=== PATIENT | male | born 1975 | race Caucasian/White ===

== ENCOUNTER 2021-06-22 09:01 | Emergency (ER) | payer OTHER, SELFPAY ==
[2021-06-22] VITALS (7 sets, daily range): BP systolic 158–184; BP diastolic 97–120; PULSE 65–74; RESP 18; TEMP 36.6–36.7; O2SAT 95–98; BMI 31.6
--- NOTE | ~2021-06-22 | XR_ITS ---
EXAMINATION: XR CHEST CLINICAL INFORMATION: Pain COMPARISON: None TECHNIQUE: Portable upright AP view of the chest was obtained. FINDINGS: The lungs are clear. There is no pneumothorax, pleural reaction, airspace consolidation or groundglass opacity. The costophrenic sulci are well-defined. The cardiopericardial silhouette is within upper limits of normal. The vascularity is normal. The hilar and mediastinal contours and visualized bony structures are unremarkable. XR/XR chest 1V IMPRESSION: Unremarkable examination.
--- NOTE | 2021-06-22 09:10 | ED.GENADULT ---
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 and delivery tech Mode of arrival: ambulatory Limitations: no limitations History of Present Illness HPI narrative: ran out of his amlodipine and has been trying to stretch if over 3 months (10mg) sometimes if his pressure if high will try to take 3 pills in a day, has no PCP MD complaint: HTN, headaches shoulder pain Onset (ago): day(s) (1) Location: head, left and upper extremity Radiation: non-radiation Severity: moderate Quality: aching Pain Consistency: constant Relieving factors: none Exacerbating factors: other (HTN) Associated symptoms: headaches and other (L shoulder pain) Treatments prior to arrival: none Related Data Previous Rx's Medication Instructions Recorded amlodipine 10 mg tablet 10 mg PO DAILY #30 tab 06/22/21 metoprolol succinate 25 mg 25 mg PO DAILY #30 tab 06/22/21 tablet,extended release 24 hr (Toprol XL) Allergies Allergy/AdvReac Type Severity Reaction Status Date / Time No Known Allergies Allergy Verified 06/22/21 09:19 Review of Systems Review of Systems: Constitutional : No Weight loss, No Fever, No Chills, No Fatigue, No Malaise ENT/Mouth : No sore throat, No Rhinorrhea Eyes: No Eye Pain, No Swelling, No Redness Cardiovascular : No Chest Pain, No SOB, No Dyspnea on Exertion, No Orthopnea, No Edema, No Palpitations Respiratory : No Cough, No Sputum, No Wheezing Gastrointestinal : No Nausea, No Vomiting, No Diarrhea, No Constipation, No abdominal Pain, No Hematochezia, No Melena Genitourinary : No Dysuria, No Urinary Frequency, No Hematuria, Musculoskeletal : pos joint pain, No Myalgias, No Joint Swelling Skin : No Skin Lesions, No rash Neuro : No Weakness, No Numbness, No Dizziness, pos Headache Psych : No Anxiety/Panic, No Depression Heme/Lymph: No Bruising, No Bleeding,No Lymphadenopathy Endocrine : No Polyuria, No Polydipsia All other systems reviewed and are negative [facility] Past Medical History Attestation statement: The following information was validated with the patient. Medical History HTN (hypertension) Myocardial infarction Surgical History (Updated 06/22/21 @ 09:15 by Jose Brown) H/O heart artery stent Social History Social History (Updated 06/22/21 @ 09:28 by Ember Fernandez DO) Patient Tobacco Use Status: Current everyday Tobacco user Use of substances other than those prescribed or required for medical reasons: No Advance Directives: No Advance Directives Information Provided: No Physical Exam Vital Signs: Vital Signs: Last Vital Signs Temp 98.0 F 06/22/21 12:00 Pulse 73 06/22/21 13:00 Resp 18 06/22/21 13:00 BP 158/97 H 06/22/21 13:00 Pulse Ox 98 06/22/21 13:00 Body Mass Index 31.6 Appearance: Alert. Oriented X3. No acute distress. Eyes: Pupils equal, round and reactive to light. ENT: Pharynx normal. Neck: Normal inspection. Neck supple. no meningeal signs CVS: Normal heart rate and rhythm. Pulses normal. Respiratory: No respiratory distress. Breath sounds normal. Abdomen: Soft and nontender. Skin: Skin warm and dry. Normal skin color. Normal skin turgor. Extremities: No lower extremity edema. No calf ttp Neuro: Oriented X 3. No motor deficit. No sensory deficit. Course Course Course Narrative: good response to labetalol PO amlodipine repeat IV hydralazine ordered HR in 60s asymptomatic now repeat trop flat pateint and partner eager to leave state they have to go - will start on amlodipine and toprol 25mg daily refer to new PCP trying to connect with [facility] Medical Decision Making MDM Narrative Medical decision making narrative: 46 yo male with HTN, [place] s/p PCI with stents comes in with uncontrolled HTN for 3 months trying to make his medications last comes in after 1 day of headaches, L shoulder pain and BP high at home - at this time labs, troponin, EKG, IV labetalol for HTN, dispo per results and findings. Lab Data Result diagrams: 06/22/21 09:32 06/22/21 09:32 Labs: Lab Results 06/22/21 06/22/21 06/22/21 Range/Units 09:32 09:32 09:32 WBC 8.0 (4.8-10.8) X10*3/uL RBC 5.38 (4.60-5.80) X10*6/uL Hgb 16.1 (14.0-18.0) g/dl Hct 48.3 (42-52) % MCV 89.8 (80-98) fL MCH 29.9 (27.0-33.0) pg MCHC 33.3 (31.0-36.0) g/dl RDW 13.3 (11.0-16.0) % Plt Count 160 (160-400) X10*3/uL MPV 11.7 (9.4-12.4) fL Immature Gran % (Auto) 1.1 H (0.0-0.4) % Neut % (Auto) 72.4 (45-73) % Lymph % (Auto) 15.5 L (20-40) % [place] % (Auto) 8.4 (2-11) % Eos % (Auto) 2.0 (0-4) % Baso % (Auto) 0.6 (0-2) % Lymph # (Auto) 1.2 (1.2-4.9) X10*3/uL [place] # (Auto) 0.7 (0.1-1.2) X10*3/uL Eos # (Auto) 0.2 (0.0-0.4) X10*3/uL Baso # (Auto) 0.1 (0.0-0.2) X10*3/uL Abs Immat Gran (auto) 0.09 H (0.00-0.03) X10*3/uL Absolute Neuts (auto) 5.8 (2.0-8.3) X10*3/uL Absolute Nucleated RBC 0.000 (0.0-0.012) X10*3/uL Nucleated RBC % (auto) 0.0 (0.0-0.2) /100WBC Sodium 142 (135-145) mmol/L Potassium 4.1 (3.3-5.1) mmol/L Chloride 105 (96-108) mmol/L Carbon Dioxide 31 H (22-29) mmol/L Anion Gap 10 L (12-20) BUN 16 (9-16) mg/dL Creatinine 1.41 H (0.5-1.4) mg/dL Estim Creat Clear Calc 79.2 Estimated GFR 55 Random Glucose 125 H (60-115) mg/dL Calcium 9.1 (8.4-10.2) mg/dL Magnesium 2.2 (1.6-2.6) mg/dL Total Bilirubin 0.7 (0.0-1.0) mg/dL Direct Bilirubin 0.2 (0.0-0.5) mg/dL AST 22 (5-37) U/L ALT 47 H (0-40) U/L Alkaline Phosphatase 114 (39-117) U/L Troponin I High Sens 5.9 (<3.5-35.0) ng/L Total Protein 6.9 (6.5-8.0) g/dL Albumin 4.4 (3.5-5.0) g/dL COVID-19 ([facility]) (Negative) COVID-19 Clin Com 06/22/21 06/22/21 Range/Units 09:32 11:44 WBC (4.8-10.8) X10*3/uL RBC (4.60-5.80) X10*6/uL Hgb (14.0-18.0) g/dl Hct (42-52) % MCV (80-98) fL MCH (27.0-33.0) pg MCHC (31.0-36.0) g/dl RDW (11.0-16.0) % Plt Count (160-400) X10*3/uL MPV (9.4-12.4) fL Immature Gran % (Auto) (0.0-0.4) % Neut % (Auto) (45-73) % Lymph % (Auto) (20-40) % [place] % (Auto) (2-11) % Eos % (Auto) (0-4) % Baso % (Auto) (0-2) % Lymph # (Auto) (1.2-4.9) X10*3/uL [place] # (Auto) (0.1-1.2) X10*3/uL Eos # (Auto) (0.0-0.4) X10*3/uL Baso # (Auto) (0.0-0.2) X10*3/uL Abs Immat Gran (auto) (0.00-0.03) X10*3/uL Absolute Neuts (auto) (2.0-8.3) X10*3/uL Absolute Nucleated RBC (0.0-0.012) X10*3/uL Nucleated RBC % (auto) (0.0-0.2) /100WBC Sodium (135-145) mmol/L Potassium (3.3-5.1) mmol/L Chloride (96-108) mmol/L Carbon Dioxide (22-29) mmol/L Anion Gap (12-20) BUN (9-16) mg/dL Creatinine (0.5-1.4) mg/dL Estim Creat Clear Calc Estimated GFR Random Glucose (60-115) mg/dL Calcium (8.4-10.2) mg/dL Magnesium (1.6-2.6) mg/dL Total Bilirubin (0.0-1.0) mg/dL Direct Bilirubin (0.0-0.5) mg/dL AST (5-37) U/L ALT (0-40) U/L Alkaline Phosphatase (39-117) U/L Troponin I High Sens 4.9 (<3.5-35.0) ng/L Total Protein (6.5-8.0) g/dL Albumin (3.5-5.0) g/dL COVID-19 (XOCHILT) Negative (Negative) COVID-19 Clin Com See Note ECG Data Attestation: I personally reviewed and interpreted this ECG as follows: Interpretation: Rate: 73 Rhythm: NSR [place]: normal Normal P waves. Normal VIPUL. Normal QRS complex. poor R wave progression ST T wave : mp FREDDIE qTC: normal prior studies: no acute ischemia The study has been interpreted contemporaneously by me. . Discharge Plan Discharge Clinical Impression: Chronic renal insufficiency, HTN (hypertension) Patient Disposition: Home, Self-Care Instructions: Chronic Kidney Disease (ED), Chronic Hypertension (ED) Additional Instructions: return to ED for any worsening symptoms or concerns PCP as soon as possible Prescriptions: New amlodipine 10 mg tablet 10 mg PO DAILY Qty: 30 RF: 3 metoprolol succinate [Toprol XL] 25 mg tablet extended release 24 hr 25 mg PO DAILY Qty: 30 RF: 3 Stand Alone Forms: Work/School Release Print Language: Ecuadorean
--- NOTE | 2021-06-22 09:19 | ECG_ITS ---
Test Reason : HYPERTENSSION Blood Pressure : / mmHG Vent. Rate : 073 BPM Atrial Rate : 073 BPM P-R Int : 174 ms QRS Dur : 092 ms QT Int : 378 ms P-R-T Axes : 048 017 002 degrees QTc Int : 416 ms Normal sinus rhythm Normal ECG No previous ECGs available Referred By: Ember Fernandez Electronically Signed By:CYNDEE WHITNEY
[2021-06-22] MEDS: Labetalol HCL 100 MG/20 ML VIAL 10 MG IVPUSH (09:34)
[2021-06-22 09:37] LABS: MANUAL DIFF FLAG NO
[2021-06-22 09:42] LABS: Basophils Absolute Auto 0.1 X10*3/uL (0.0-0.2); Basophils Percent Auto 0.6 % (0-2); Eosinophils Absolute Auto 0.2 X10*3/uL (0.0-0.4); Hematocrit 48.3 % (42-52); Hemoglobin 16.1 g/dl (14.0-18.0); Imm Gran Abs Auto 0.09 X10*3/uL (0.00-0.03); Imm Gran Pct Auto 1.1 % (0.0-0.4); Lymphocytes Absolute Auto 1.2 X10*3/uL (1.2-4.9); Lymphocytes Percent Auto 15.5 % (20-40); Mean Corpuscular HGB Conc 33.3 g/dl (31.0-36.0); Mean Corpuscular Hemoglobin 29.9 pg (27.0-33.0); Mean Corpuscular Volume 89.8 fL (80-98); Mean Platelet Volume 11.7 fL (9.4-12.4); Monocytes Absolute Auto 0.7 X10*3/uL (0.1-1.2); Monocytes Percent Auto 8.4 % (2-11); Neutrophils Absolute Auto 5.8 X10*3/uL (2.0-8.3); Neutrophils Percent Auto 72.4 % (45-73); Platelet Count 160 X10*3/uL (160-400); Red Blood Count 5.38 X10*6/uL (4.60-5.80); Red Cell Distribution Width 13.3 % (11.0-16.0)
[2021-06-22 09:56] LABS: COVID-19 Test Negative (Negative); IDNOW Serial# 9DD0AD1C
[2021-06-22 10:06] LABS: Alanine Aminotransferase 47 U/L (0-40); Albumin Level 4.4 g/dL (3.5-5.0); Alkaline Phosphatase 114 U/L (39-117); Anion Gap 10 (12-20); Aspartate Amino Transferase 22 U/L (5-37); Bilirubin Direct 0.2 mg/dL (0.0-0.5); Bilirubin Total 0.7 mg/dL (0.0-1.0); Blood Urea Nitrogen 16 mg/dL (9-16); Calcium 9.1 mg/dL (8.4-10.2); Carbon Dioxide 31 mmol/L (22-29); Chloride 105 mmol/L (96-108); Creatinine Clr Calc Pharmacy 79.2; Estimated Glomerular Filt Rate 55; Glucose Random 125 mg/dL (60-115); Magnesium 2.2 mg/dL (1.6-2.6); Potassium 4.1 mmol/L (3.3-5.1); Sodium 142 mmol/L (135-145); Total Protein 6.9 g/dL (6.5-8.0)
[2021-06-22 10:08] LABS: Troponin-I High Sensitivity 5.9 ng/L (<3.5-35.0)
[2021-06-22] MEDS: amLODIPine Besylate 5 MG TABLET PO (10:23)
--- NOTE | 2021-06-22 12:14 | PC.NURSE ---
patient a&ox3, monitor car operator sinus christa 60s, vitals obtained, pt hypertensive- provider notified, troponin drawn, family at bedside, will continue to monitor.
[2021-06-22 12:16] LABS: Troponin-I High Sensitivity 4.9 ng/L (<3.5-35.0)
[2021-06-22] MEDS: hydrALAZINE HCl 20 MG/ML VIAL 10 MG IVPUSH (12:18)
--- NOTE | 2021-06-22 12:20 | PC.NURSE ---
PATIENT MEDICATED PER ORDER
== END 2021-06-22 13:49 | disposition home or self-care (01) ==
PROVIDERS: Emergency Provider Emergency Medicine
DX: I12.9 Hypertensive chronic kidney disease with stage 1 through stage 4 chronic kidney disease, or unspecified chronic kidney disease (principal); F17.200 Nicotine dependence, unspecified, uncomplicated; Z20.822 Contact with and (suspected) exposure to COVID-19; Z71.6 Tobacco abuse counseling; Z79.899 Other long term (current) drug therapy
CPT/HCPCS: 36415; 71045; 80048; 80076; 83735; 84484; 85025; 87635; 93005; 96374; 96375; 99284

== ENCOUNTER 2021-07-07 08:14 | Emergency (ER) | payer OTHER, SELFPAY ==
[2021-07-07 08:16] VITALS: BP 185/110; PULSE 98; RESP 18; TEMP 36.8; O2SAT 100; BMI 34.5
[2021-07-07 09:08] VITALS: BP 143/99; PULSE 77; RESP 16; O2SAT 99
--- NOTE | 2021-07-07 09:32 | ED_ITS ---
HPI - Allergic Reaction General Chief complaint: Allergic Reaction Stated complaint: allergic reaction Time Seen by Provider: 07/07/21 08:47 Source: patient Mode of arrival: ambulatory Limitations: no limitations History of Present Illness HPI narrative: Patient presents to ED for hives and itchiness for the past 4 days. Patient does not know what he is allergic to. Patient does not remember if he tried a new food close, cosmetic, or detergents. Patient denies any swelling of lips, throat closing, shortness of breath, fever, or chills. Related Data Previous Rx's Medication Instructions Recorded amlodipine 10 mg tablet 10 mg PO DAILY #30 tab 06/22/21 metoprolol succinate 25 mg 25 mg PO DAILY #30 tab 06/22/21 tablet,extended release 24 hr (Toprol XL) diphenhydramine HCl 25 mg capsule 25 mg PO TID PRN 10 Days #30 cap 07/07/21 (Benadryl) famotidine 20 mg tablet (Pepcid) 20 mg PO BID 7 Days #14 tab 07/07/21 prednisone 20 mg tablet 40 mg PO DAILY 5 Days #10 tab 07/07/21 Allergies Allergy/AdvReac Type Severity Reaction Status Date / Time No Known Allergies Allergy Verified 06/22/21 09:19 Review of Systems Review of Systems: Yes all other systems are reviewed and are negative Constitutional: Constitutional: Reports as per HPI and Reports no additional constitutional complaints Eyes: Eyes: Reports as per HPI and Reports no additional eye complaints ENT: Reports system reviewed and no additional complaints, except as documented and Reports as per HPI Cardiovascular: Cardiovascular: Reports as per HPI and Reports no additional cardiovascular complaints Respiratory: Respiratory: Reports as per HPI and Reports no additional respiratory complaints Gastrointestinal: Gastrointestinal: Reports as per HPI and Reports no additional gastrointestinal complaints Genitourinary: Genitourinary: Reports no additional male genitourinary complaints and Reports as per HPI Musculoskeletal: Musculoskeletal: Reports no additional musculoskeletal complaints and Reports as per HPI Neurologic: Reports system reviewed and no additional complaints, except as documented and Reports as per HPI Psychiatric: Psychiatric: Reports no additional psychiatric complaints and Reports as per HPI Comments: Hives/itchiness PMFSH Past Medical History Medical History HTN (hypertension) Myocardial infarction Surgical History (Updated 06/22/21 @ 09:15 by Jose Brown) H/O heart artery stent Social History Social History (Updated 06/22/21 @ 09:28 by Ember Fernandez DO) Patient Tobacco Use Status: Current everyday Tobacco user Advance Directives: No Physical Exam Vital Signs: Vital Signs: Last Vital Signs Temp 98.3 F 07/07/21 08:16 Pulse 77 07/07/21 09:08 Resp 16 07/07/21 09:08 BP 143/99 H 07/07/21 09:08 Pulse Ox 99 07/07/21 09:08 Body Mass Index 34.5 Const: General: cooperative, healthy appearing, comfortable, no acute distress, well developed, alert, awake and Physically active Orientation/consciousness: patient oriented x3 HENMT: Head: Yes normal to inspection, Yes No palpable skull fracture present, Yes normocephalic and Yes atraumatic Eyes: General: appearance normal, both eyes and all related structures Neck: Neck: Yes normal visual inspection, Yes full ROM, Yes no lymphadenopathy, Yes no meningeal signs, Yes trachea midline, Yes supple and No tender Chest: Chest palpation & inspection: normal inspection of the chest and normal palpation of entire chest wall Resp: Effort & Inspection: normal respiratory effort and able to speak in complete sentences Auscultation: clear to auscultation bilaterally Cardio: Jugular venous distension: no JVD Heart sounds: S1 normal heart sound present and S2 normal heart sound present GI: Inspection: Yes normal to inspection and No abdominal wall ecchymosis Palpation (GI): Soft to palpation, not firm, nontender, no guarding and not rigid : General: No CVA tenderness and Yes no CVA tenderness Back/Spine/Pelvis: Back: no CVA tenderness, No CVA tenderness and No back tenderness Skin: Other: Negative for eyes General skin exam: no rashes or lesions noted and elasticity normal Neuro: General: patient oriented x3, no meningeal signs and CN's II-XI intact bilaterally Cranial nerves: Yes CN's II-XII intact bilaterally Extrem: General: Yes normal to inspection and Yes full ROM Psych: Appearance: grossly normal, well kempt and not disheveled Course Course Course Narrative: Patient not in respiratory distress. Patient repeat blood pressure normal. Reevaluation(s) Reevaluation #1: Patient being on med for 2 weeks and now having symptoms for the past recent 4 days unlikely high blood pressure medication as cause of his allergic reaction. Did not have symptoms after taking meds. Patient has been on amlodipine for years. Case discussed with Dr. Hyatt also agrees. Patient will be discharged with allergic reaction medications in and told to follow-up with PCP. Patient recommended to follow up with PCP for patch test. Time: 09:30 MDM - Allergic Reaction MDM Narrative Medical decision making narrative: Allergic reaction Discharge Plan Discharge Clinical Impression: Allergic reaction Patient Disposition: Home, Self-Care Instructions: General Allergic Reaction (ED) Additional Instructions: Regrese al servicio de urgencias inmediatamente si tiene hinchaz?n de los labios, hinchaz?n de la lengua, sensaci?n de cierre de la garganta, dificultad para respirar, exantema que empeora, fiebre, escalofr?os, dolor en el pecho, falta de aire o cualquier otro s?ntoma preocupante. Hans un seguimiento con el proveedor de atenci?n primaria. Prescriptions: New diphenhydramine HCl [Benadryl] 25 mg capsule 25 mg PO TID PRN (Reason: itchiness) 10 Days Qty: 30 RF: 0 prednisone 20 mg tablet 40 mg PO DAILY 5 Days Qty: 10 RF: 0 famotidine [Pepcid] 20 mg tablet 20 mg PO BID 7 Days Qty: 14 RF: 0 No Action amlodipine 10 mg tablet 10 mg PO DAILY Qty: 30 RF: 3 metoprolol succinate [Toprol XL] 25 mg tablet extended release 24 hr 25 mg PO DAILY Qty: 30 RF: 3 Stand Alone Forms: Work/School Release Interventions: ED Discharge Assessment Last Done: 07/07/21 10:09 Discharge Date/Time: 07/07/21 10:09 Print Language: Greenlandic
== END 2021-07-07 10:09 | disposition home or self-care (01) ==
PROVIDERS: Emergency Provider Emergency Medicine
DX: L50.0 Allergic urticaria (principal); Z79.899 Other long term (current) drug therapy
CPT/HCPCS: 99283; 99284

== ENCOUNTER 2021-07-20 08:57 | Emergency (ER) | payer OTHER, SELFPAY ==
[2021-07-20 09:10] VITALS: BP 149/94; PULSE 74; RESP 16; TEMP 37.4; O2SAT 99
--- NOTE | 2021-07-20 09:26 | ED_ITS ---
HPI - General Adult General Chief complaint: Dizziness Stated complaint: hbp Time Seen by Provider: 07/20/21 09:07 Source: patient Limitations: no limitations and language barrier (Hospital change agent used) History of Present Illness HPI narrative: This is a 46-year-old male with history of hypertension and coronary artery disease, states he had a ?stroke? in [place] in 2003 but then specifies that he had a cardiac stent placed for it. The patient is on blood pressure medicine including metoprolol succinate, and amlodipine but states his blood pressure still continues to be high and sometimes he takes extra dosing to try to bring under control. He has had an 8/10 headache associated with the blood pressure, and also notes that when his pressures is high his left eye twitches. He denies any focal numbness or weakness in his arms or legs or face. He denies any chest pain or shortness of breath. He has been trying to get established with a primary care, has contacted the office and is being set up for an appointment. Patient admits some poking but states he has not smoked since last week. Related Data Previous Rx's Medication Instructions Recorded amlodipine 10 mg tablet 10 mg PO DAILY #30 tab 06/22/21 metoprolol succinate 25 mg 25 mg PO DAILY #30 tab 06/22/21 tablet,extended release 24 hr (Toprol XL) diphenhydramine HCl 25 mg capsule 25 mg PO TID PRN 10 Days #30 cap 07/07/21 (Benadryl) famotidine 20 mg tablet (Pepcid) 20 mg PO BID 7 Days #14 tab 07/07/21 prednisone 20 mg tablet 40 mg PO DAILY 5 Days #10 tab 07/07/21 metoprolol succinate 50 mg 50 mg PO DAILY #30 tab 07/20/21 tablet,extended release 24 hr (Toprol XL) Allergies Allergy/AdvReac Type Severity Reaction Status Date / Time No Known Allergies Allergy Verified 06/22/21 09:19 Review of Systems Constitutional: Constitutional: Reports headache(s) ENT: Reports headache(s) Neurologic: Reports headache(s) and Denies Sensory deficit (Neuro) [facility] Past Medical History Medical History HTN (hypertension) Myocardial infarction Surgical History (Updated 06/22/21 @ 09:15 by Jose Brown) H/O heart artery stent Social History Social History (Updated 06/22/21 @ 09:28 by Ember Fernandez DO) Patient Tobacco Use Status: Current everyday Tobacco user Advance Directives: No Physical Exam Vital Signs: Vital Signs: Last Vital Signs Temp 97.9 F 07/20/21 09:29 Pulse 74 07/20/21 09:40 Resp 16 07/20/21 09:29 BP 149/94 H 07/20/21 09:40 Pulse Ox 98 07/20/21 09:29 Body Mass Index 29.8 Const: General: cooperative, no acute distress and alert Orientation/consciousness: patient oriented x3 HENMT: Head: Yes normal to inspection Eyes: General: appearance normal, both eyes and all related structures Eyelids: Yes eyelids normal Conjunctivae: conjunctivae normal Pupils: Equal, round and reactive pupils present Neck: Neck: Yes normal visual inspection and Yes supple Chest: Chest palpation & inspection: normal inspection of the chest Resp: Effort & Inspection: normal respiratory effort Auscultation: clear to auscultation bilaterally Cardio: Rate: regular rate Rhythm: regular rhythm Heart sounds: S1 normal heart sound present, S2 normal heart sound present, no gallops, no murmurs and no rubs GI: Palpation (GI): Soft to palpation, nontender and Other GI palpation findings present (Non-distended) Auscultation: normal bowel sounds Skin: General skin exam: no rashes or lesions noted Neuro: General: patient oriented x3, no focal motor deficits and CN's II-XI intact bilaterally Cranial nerves: Yes Equal, round and reactive pupils present Cognition (Neuro): normal cognition Motor exam (neuro): 5/5 motor strength present throughout Sensory Exam: No Sensory deficit (Neuro) Extrem: General: Yes normal to inspection and Yes no pedal edema Psych: Appearance: grossly normal Affect: normal affect Medical Decision Making MDM Narrative Medical decision making narrative: Patient with history of hypertension, on medication, still has moderate hypertension, and given that the patient has been on medications and states he continually has high readings, will double his dose of metoprolol succinate to 50 mg daily. Patient is getting plugged up primary care physician and states he should have an appointment in the next week or 2. Patient reported the headache that was chronic, blood pressure was in the range of 140/90, unlikely hypertensive urgency or emergency, no clinical suspicion for intracranial hemorrhage. Patient was given 25 mg of metoprolol succinate p.o. and is being prescribed 50 mg to take daily. Patient has not experienced any chest pain or shortness of breath. Upon last visit in June the patient had borderline elevated creatinine, I do not believe this needs to be rechecked toda y Discharge Plan Discharge Clinical Impression: Hypertension, Headache Patient Disposition: Home, Self-Care Instructions: Chronic Hypertension (ED) Additional Instructions: Increase your metoprolol succinate to 50 mg daily. I have prescribed you this new medicine, but you can use up your old metoprolol by taking 2 of them daily for total of 50 mg daily. Continue your amlodipine 10 mg daily. Follow-up with your primary care physician. Return for any new or worsened symptoms such as worse headache, numbness or weakness in her arms or legs or face, persistent chest pain Prescriptions: New metoprolol succinate [Toprol XL] 50 mg tablet extended release 24 hr 50 mg PO DAILY Qty: 30 RF: 1 No Action amlodipine 10 mg tablet 10 mg PO DAILY Qty: 30 RF: 3 metoprolol succinate [Toprol XL] 25 mg tablet extended release 24 hr 25 mg PO DAILY Qty: 30 RF: 3 diphenhydramine HCl [Benadryl] 25 mg capsule 25 mg PO TID PRN (Reason: itchiness) 10 Days Qty: 30 RF: 0 prednisone 20 mg tablet 40 mg PO DAILY 5 Days Qty: 10 RF: 0 famotidine [Pepcid] 20 mg tablet 20 mg PO BID 7 Days Qty: 14 RF: 0 Stand Alone Forms: Work/School Release Interventions: ED Discharge Assessment Last Done: 07/20/21 09:56 Discharge Date/Time: 07/20/21 09:57
[2021-07-20 09:29] VITALS: BP 149/94; PULSE 74; RESP 16; TEMP 36.6; O2SAT 98; BMI 29.8
--- NOTE | 2021-07-20 09:30 | PC.NURSE ---
pt alert and oriented. current b/p 149/94. pt states he is on b/p meds but his b/p continues to be high. he reports that sometimes he takes an extra dose to try to bring his b/p under control. pt c/o 8/10 headache which he associates to his high b/p. he also reports that when his b/p is high his left eye twitches. pt denies numbness, arms, legs/facial weakness. he denies sob/chest pain. no apparent distress noted.
[2021-07-20 09:40] VITALS: BP 149/94; PULSE 74
[2021-07-20] MEDS: Metoprolol Succinate ER 25 MG TAB.ER.24H PO (09:40)
--- NOTE | 2021-07-20 09:55 | PC.NURSE ---
pt medically cleared for discharge. med given as documented. discharge summary given. no complaints on discharge. pt reports headache will go away once b/p med kicks in.
== END 2021-07-20 09:57 | disposition home or self-care (01) ==
PROVIDERS: Emergency Provider Emergency Medicine
DX: I10 Essential (primary) hypertension (principal); R51.9 Headache, unspecified; I25.10 Atherosclerotic heart disease of native coronary artery without angina pectoris; Z79.899 Other long term (current) drug therapy
CPT/HCPCS: 99283

== ENCOUNTER 2022-03-14 13:50 | Emergency (ER) | payer MEDICAID, SELFPAY ==
[2022-03-14 13:54] VITALS: BP 224/137; PULSE 87; RESP 18; TEMP 37; O2SAT 95; BMI 35.6
== END 2022-03-14 20:08 | disposition left against medical advice (07) ==
PROVIDERS: Emergency Provider Internal Medicine
DX: M25.562 Pain in left knee (principal); I10 Essential (primary) hypertension
CPT/HCPCS: 99281

== ENCOUNTER → 2023-01-29 12:10 | Outpatient (BNVA) | payer MEDICAID, SELFPAY | PROVIDERS: PCP General Practice; Referring Provider General Practice; Visit Provider Internal Medicine | DX: I25.10 Atherosclerotic heart disease of native coronary artery without angina pectoris (principal); I10 Essential (primary) hypertension | CPT/HCPCS: 93005; 99202 ==

== ENCOUNTER 2023-11-05 07:45 | Emergency (ER) | payer MEDICAID, SELFPAY ==
--- NOTE | ~2023-11-05 | CT_ITS ---
EXAMINATION: CT ABDOMEN AND PELVIS WITHOUT CONTRAST CLINICAL INFORMATION: Periumbilical abdominal pain and diarrhea. COMPARISON: None available. TECHNIQUE: Multidetector volumetric imaging was performed from the superior aspect of the liver through the pubic symphysis. Sagittal and coronal reformatted images were obtained on the technologist's workstation. This CT examination was performed using dose optimization techniques as appropriate, variously including the following: *Automated exposure control *Adjustment of mA and/or kV according to patient size (this includes techniques or standardized protocols for targeted exams where dose is matched to indication/reason for exam; i.e. extremities or head) *Use of iterative reconstruction technique DLP: 951 mGy-cm FINDINGS: LUNG BASES: There is platelike atelectasis left lung base. Heart size is normal. LIVER, GALLBLADDER, AND BILIARY TREE: The liver is normal in size, shape, and attenuation. No focal hepatic lesion or biliary ductal dilatation is present. The gallbladder is unremarkable with no evidence of radiopaque gallstones, gallbladder wall thickening, or obvious pericholecystic inflammatory changes. PANCREAS: Unremarkable. SPLEEN: Unremarkable. ADRENAL GLANDS: Unremarkable. KIDNEYS AND URETERS: The kidneys are normal in size, shape, and attenuation. No hydronephrosis, hydroureter, or calculi seen. No perinephric stranding. BLADDER: Unremarkable. GASTROINTESTINAL TRACT: The small and large bowel are unremarkable there are few scattered diverticuli The appendix is unremarkable. ABDOMINAL WALL: No significant hernia is appreciated. LYMPH NODES: Normal. VASCULAR: Unremarkable. PELVIC VISCERA: Unremarkable. OSSEOUS STRUCTURES: Unremarkable process seen. CT/CT abdomen pelvis wo IV con IMPRESSION: 1. No acute intra-abdominal process seen. 2. Scattered colonic diverticulosis without diverticulitis. Fleischner guidelines were followed.
[2023-11-05 08:12] VITALS: BP 213/138; PULSE 82; RESP 19; TEMP 36.6; O2SAT 99; BMI 35.6
--- NOTE | 2023-11-05 08:14 | ECG_ITS ---
Test Reason : abd pain/htn Blood Pressure : / mmHG Vent. Rate : 079 BPM Atrial Rate : 079 BPM P-R Int : 178 ms QRS Dur : 092 ms QT Int : 384 ms P-R-T Axes : 042 003 048 degrees QTc Int : 440 ms Normal sinus rhythm Nonspecific T wave abnormality Abnormal ECG When compared with ECG of 22-JUN-2021 09:26, T wave inversion no longer evident in Inferior leads Referred By: Generic ED Physician Electronically Signed By:FIDEL ALANIS MD
[2023-11-05 08:26] LABS: MANUAL DIFF FLAG NO
[2023-11-05 08:27] LABS: Basophils Absolute Auto 0.1 X10*3/uL (0.0-0.2); Basophils Percent Auto 0.6 % (0-2); Eosinophils Absolute Auto 0.1 X10*3/uL (0.0-0.4); Eosinophils Percent Auto 1.4 % (0-4); Hematocrit 48.7 % (42.0-52.0); Hemoglobin 16.7 g/dl (14.0-18.0); Imm Gran Abs Auto 0.06 X10*3/uL (0.00-0.03); Imm Gran Pct Auto 0.7 % (0.0-0.4); Lymphocytes Absolute Auto 1.7 X10*3/uL (1.2-4.9); Lymphocytes Percent Auto 20.3 % (20-40); Mean Corpuscular HGB Conc 34.3 g/dl (31.0-36.0); Mean Corpuscular Hemoglobin 29.7 pg (27.0-33.0); Mean Corpuscular Volume 86.7 fL (80.0-98.0); Mean Platelet Volume 11.5 fL (9.4-12.4); Monocytes Absolute Auto 0.6 X10*3/uL (0.1-1.2); Monocytes Percent Auto 7.6 % (2-11); Neutrophils Absolute Auto 5.9 x10*3/uL (2.0-8.3); Neutrophils Percent Auto 69.4 % (45-73); Platelet Count 170 X10*3/uL (160-400); Red Blood Count 5.62 X10*6/uL (4.60-5.80); Red Cell Distribution Width 13.3 % (11.0-16.0); White Blood Count 8.4 X10*3/uL (4.8-10.8)
[2023-11-05 08:43] LABS: Alanine Aminotransferase 44 U/L (0-40); Albumin Level 4.4 g/dL (3.5-5.0); Alkaline Phosphatase 114 U/L (39-117); Anion Gap 14 (12-20); Bilirubin Direct 0.2 mg/dL (0.0-0.5); Bilirubin Total 0.8 mg/dL (0.0-1.0); Blood Urea Nitrogen 18 mg/dL (9-16); Calcium 9.3 mg/dL (8.4-10.2); Carbon Dioxide 25 mmol/L (22-29); Chloride 107 mmol/L (96-108); Creatinine Clr Calc Pharmacy 72.3; Estimated Glomerular Filt Rate 45; Glucose Random 91 mg/dL (60-115); Lipase 123 U/L (8-78); Potassium 3.9 mmol/L (3.3-5.1); Sodium 142 mmol/L (135-145); Total Protein 7.5 g/dL (6.5-8.0)
[2023-11-05 09:03] LABS: Aspartate Amino Transferase 25 U/L (5-37)
[2023-11-05 10:10] VITALS: BP 215/145; PULSE 71; RESP 16; TEMP 36.8; O2SAT 98
[2023-11-05] MEDS: amLODIPine Besylate 5 MG TABLET PO ×2 (11:09→14:17)
[2023-11-05] MEDS: Metoprolol Succinate ER 50 MG TAB.ER.24H PO (11:09)
[2023-11-05] MEDS: 0.9 % Sodium Chloride 1,000 ML 999 ML IV (11:14)
--- NOTE | 2023-11-05 11:18 | ED_ITS ---
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 Patient reports returning from a trip to [place] 7 days ago. Upon returning, began having multiple episodes of diarrhea. Notes his stool is a clearish color. Denies blood in his stool or bright red blood per rectum. Admits that he has to pass a bowel movement every time he eats something. Additionally he endorses periumbilical abdominal pain. Abdominal pain does not radiate and is localized around the umbilicus. Pain is exacerbated when he has to pass a bowel movement. Has not been taking any [id number] medications for this at home. He denies known sick contacts. Denies fever, chills, nausea vomiting, hematochezia, melena, dysuria, hematuria, flank pain. No other concerns at this time. land use planner was utilized during ED visit to communicate with patient. Related Data Home Medications Medication Instructions Recorded Confirmed amlodipine 5 mg tablet 5 mg PO DAILY 01/29/23 01/29/23 aspirin 81 mg tablet,delayed 81 mg PO DAILY 01/29/23 01/29/23 release (Adult Aspirin Regimen) meloxicam 7.5 mg tablet 7.5 mg PO DAILY knee pain 01/29/23 01/29/23 simvastatin 20 mg tablet 20 mg PO QPM cholesterol 01/29/23 01/29/23 Previous Rx's Medication Instructions Recorded metoprolol succinate 25 mg 25 mg PO DAILY #30 tabs 06/22/21 tablet,extended release 24 hr (Toprol XL) diphenhydramine HCl 25 mg capsule 25 mg PO TID PRN itchiness 10 days 07/07/21 (Benadryl) #30 caps metoprolol succinate 50 mg 50 mg PO DAILY #30 tabs 07/20/21 tablet,extended release 24 hr (Toprol XL) Allergies Allergy/AdvReac Type Severity Reaction Status Date / Time No Known Allergies Allergy Verified 11/05/23 08:12 Review of Systems Review of Systems Constitutional: No fever, chills, fatigue, night sweats, weight changes ENT/Mouth: No ear pain, hearing loss, nasal congestion, sinus pain, rhinorrhea, sore throat Eyes: No eye pain, swelling, redness, vision changes, discharge Cardio: No chest pain, palpitations, MOE, orthopnea, peripheral edema Pulm: No SOB, cough, sputum, wheezing, dyspnea, hemoptysis GI: No nausea, vomiting, hematemesis, constipation, hematochezia, melena, + abdominal pain, + diarrhea : No irregular bleeding, dysuria, frequency, urgency, hesitancy, hematuria, flank pain, urinary flow changes, urinary incontinence or retention MSK: No back pain, neck pain, joint pain, myalgias Skin: No lesions, rashes Neuro: No weakness, numbness, paresthesias, LOC, dizziness, headache All other systems reviewed and are negative. COUNT INCLUDES THE [facility] Past Medical History Attestation statement: The following information was validated with the patient. Source: old records reviewed and nursing notes reviewed Medical History (Updated 11/05/23 @ 16:05 by AI Anthony) Myocardial infarction HTN (hypertension) Surgical History H/O heart artery stent Family History Family History (Updated 01/29/23 @ 13:03 by Aminata Calabrese) Mother No problems noted. Father HTN (hypertension) Social History Social History (Updated 06/22/21 @ 09:28 by Marlene Fernandez DO) Patient Tobacco Use Status: Current everyday Tobacco user Advance Directives: No Advance Directives Information Provided: Yes Physical Exam ED Vital Signs: Vital Signs - 24 hr 11/05/23 08:12 11/05/23 10:10 11/05/23 11:57 Temperature 98 F 98.2 F Pulse Rate 82 71 65 Respiratory Rate 19 16 16 Blood Pressure 213/138 H 215/145 H 190/122 H Pulse Oximetry 99 98 97 Oxygen Delivery Method Room Air Room Air Room Air 11/05/23 13:54 11/05/23 14:00 11/05/23 15:24 Temperature 98.7 F Pulse Rate 83 75 71 Respiratory Rate 19 18 20 Blood Pressure 202/130 H 182/115 H 169/101 H Pulse Oximetry 96 98 97 Oxygen Delivery Method Room Air Room Air Room Air BMI result Body Mass Index 35.6 Patient hypertensive, vitals otherwise wnl. Const General: cooperative, healthy appearing, comfortable, no acute distress, alert and awake Nutritional Appearance: overweight Orientation/consciousness: patient oriented x3 Limitations: no limitations Eyes General: appearance normal, both eyes and all related structures Conjunctivae: conjunctivae normal Sclerae: sclerae normal Pupils: Equal, round and reactive pupils present Neck Neck: Yes normal visual inspection, Yes no lymphadenopathy and Yes no JVD Resp Effort & Inspection: normal respiratory effort and able to speak in complete sentences Auscultation: clear to auscultation bilaterally Cardio Rate: regular rate Rhythm: regular rhythm Heart sounds: S1 normal heart sound present and S2 normal heart sound present Peripheral pulses: Peripheral pulses 2+ throughout GI Other: + abdomen soft, nondistended, nontender to palpation, normoactive bs x4, no rebound or guarding. Negative McBurney point tenderness. Negative Barros sign. Negative Rovsing sign. Inspection: Yes normal to inspection, No visible pulsation and No visible peristalsis General: Yes no CVA tenderness Back/Spine/Pelvis Back: no CVA tenderness Skin General skin exam: no rashes or lesions noted Neuro General: patient oriented x3 and gait normal Cranial nerves: Yes Equal, round and reactive pupils present Extrem General: Yes normal to inspection and Yes full ROM Course Course Course Narrative: Hypertensive urgency noted on vitals. Patient initially hypertensive to 213/138 on repeat BP is 215/145. Patient states that he forgot to take his amlodipine and metoprolol this morning. Home meds will be given here with repeat BP. EKG showing normal sinus rhythm with a rate of 79 beats per minute, QT 384, QTC 440, no acute ischemic changes or ST elevations. >> CBC without leukocytosis or anemia. No left shift. Slight noted with BUN of 18 and creatinine of 1.65 > patient recieving IVF. Lipase elevated to 123. Covid negative. 1602-- Patient's BP has improved to 169/101 after administration of home meds along with another 5 mg amlodipine and 100 labetalol. I feel comfortable discharging patient home with this blood pressure, as this is likely where he lives. he has remained asymptomatic. > CT showing diverticulosis without diverticulitis, no other acute process shown. this likely is not etiology of patient's discomfort. > patient states he is feeling better with morphine. has had one BM while in ED after eating a meal brought in by his partner. discussed workup results with patient. Symptoms may be consistent with traveler's diarrhea. Informed him that we will call him with any positive results from GI panel and treat accordingly at that time. Additionally, I advised patient to reach out to his primary care provider tomorrow regarding his antihypertensives. These may need to be adjusted as they are not adequately controlling his blood pressure. patient verbalizes understanding. Discussed worrisome signs and symptoms of when to return to the ED. All questions answered at this time. Patient is agreeable with disposition and stable for discharge. > reports that he will be getting a ride home today. Medical Decision Making Medical Decision Making [facility] Narrative: 48 year old male with pmhx significant for HTN and CAD here for evaluation of abdominal pain x7 days. Patient initially hypertensive, showing improvement with administration of antihypertensives. Vital signs otherwise WNL. He is afebrile. Nontoxic appearing and in no acute distress. RRR, no JVD. Abdomen soft, nondistended, nontender to palpation, no rebound or guarding, negative Barros's sign, negative McBurney point tenderness, negative Rovsing sign. Normoactive bowel sounds x4. No visible peristalsis or pulsatile mass. No CVAT bilaterally. Clinical concern for hypertension, hypertensive urgency. Concern for gastroenteritis, gastritis, traveler's diarrhea, cholera, diverticulitis, diverticulosis. Unlikely urinary tract infection, nephrolithiasis, renal colic. Unlikely acute abdomen, appendicitis, cholecystitis, pancreatitis, SBO, ischemic bowel. Labs, GI panel, c diff antigen, ct abdomen, pain control ordered. Differential Diagnosis Differential Diagnoses: The differential diagnosis associated with the presentation includes As above Admission/Observation Not indicated. Lab Data [facility] Lab Attestation statement: I reviewed the patient's lab results. As above. 11/05/23 08:20 11/05/23 08:20 Labs: Lab Results 11/05/23 11/05/23 11/05/23 Range/Units 08:20 11:42 14:34 WBC 8.4 (4.8-10.8) X10*3/uL RBC 5.62 (4.60-5.80) X10*6/uL Hgb 16.7 (14.0-18.0) g/dl Hct 48.7 (42.0-52.0) % MCV 86.7 (80.0-98.0) fL MCH 29.7 (27.0-33.0) pg MCHC 34.3 (31.0-36.0) g/dl RDW 13.3 (11.0-16.0) % Plt Count 170 (160-400) X10*3/uL MPV 11.5 (9.4-12.4) fL Immature Gran % (Auto) 0.7 H (0.0-0.4) % Neut % (Auto) 69.4 (45-73) % Lymph % (Auto) 20.3 (20-40) % Wilcox % (Auto) 7.6 (2-11) % Eos % (Auto) 1.4 (0-4) % Baso % (Auto) 0.6 (0-2) % Lymph # (Auto) 1.7 (1.2-4.9) X10*3/uL Wilcox # (Auto) 0.6 (0.1-1.2) X10*3/uL Eos # (Auto) 0.1 (0.0-0.4) X10*3/uL Baso # (Auto) 0.1 (0.0-0.2) X10*3/uL Abs Immat Gran (auto) 0.06 H (0.00-0.03) X10*3/uL Absolute Neuts (auto) 5.9 (2.0-8.3) x10*3/uL Absolute Nucleated RBC 0.000 (0.0-0.012) X10*3/uL Nucleated RBC % (auto) 0.0 (0.0-0.2) /100WBC Sodium 142 (135-145) mmol/L Potassium 3.9 (3.3-5.1) mmol/L Chloride 107 (96-108) mmol/L Carbon Dioxide 25 (22-29) mmol/L Anion Gap 14 (12-20) BUN 18 H (9-16) mg/dL Creatinine 1.65 H (0.5-1.4) mg/dL Estim Creat Clear Calc 72.3 Estimated GFR 45 Random Glucose 91 (60-115) mg/dL Calcium 9.3 (8.4-10.2) mg/dL Total Bilirubin 0.8 (0.0-1.0) mg/dL Direct Bilirubin 0.2 (0.0-0.5) mg/dL AST 25 (5-37) U/L ALT 44 H (0-40) U/L Alkaline Phosphatase 114 (39-117) U/L Troponin I High Sens 21.0 (<3.5-35.0) ng/L Total Protein 7.5 (6.5-8.0) g/dL Albumin 4.4 (3.5-5.0) g/dL Lipase 123 H (8-78) U/L C. difficile Tox B Gene NEGATIVE (Negative) COVID-19 (XOCHILT) Negative (Negative) COVID-19 Clin Com See Note Independent Interpretation I performed an independent interpretation of an: EKG and CT Scan Interpretation: EKG showing normal sinus rhythm with a rate of 79 beats per minute, QT 384, QTC 440, no acute ischemic changes or ST elevations. I have personally reviewed CT abdomen/pelvis and agree with radiologist's interpretation. Radiology Impression Discussion of test interpretation with radiology: I have reviewed the radiologist's reading. Radiologist Impression: CT abdomen pelvis wo IV con IMPRESSION: 1. No acute intra-abdominal process seen. 2. Scattered colonic diverticulosis without diverticulitis. Fleischner guidelines were followed. External Record Review External record reviewed: Inpatient record Prescription Management I considered prescription management with: Pain Medication and Other (beta marissa) Chronic Conditions Patient?s care impacted by: Hypertension Social Determinants Patient?s care significantly limited by Social Determinants of Health including: Other Social Determinant of Health Medications Administered Discontinued Medications Generic Name Dose Route Start Last Admin Trade Name Freq PRN Reason Stop Dose Admin Acetaminophen 975 mg 11/05/23 14:03 11/05/23 14:17 Acetaminophen 325 Mg Tablet PO 11/05/23 14:04 975 mg ONCE ONE Administration Amlodipine Besylate 5 mg 11/05/23 10:38 11/05/23 11:09 Amlodipine Besylate 5 Mg Tablet PO 11/05/23 10:39 5 mg ONCE ONE Administration Protocol Amlodipine Besylate 5 mg 11/05/23 14:03 11/05/23 14:17 Amlodipine Besylate 5 Mg Tablet PO 11/05/23 14:04 5 mg ONCE ONE Administration Protocol Sodium Chloride 1,000 mls @ 999 mls/hr 11/05/23 10:45 11/05/23 13:01 Ns IV 11/05/23 11:45 Infused .Q1H1M THIAGO Infusion Labetalol HCl 100 mg 11/05/23 14:03 11/05/23 14:17 Labetalol Hcl 100 Mg Tablet PO 11/05/23 14:04 100 mg ONCE ONE Administration Protocol Metoprolol Succinate 50 mg 11/05/23 10:38 11/05/23 11:09 Metoprolol Succinate Er 50 Mg Tab.Er.24h PO 11/05/23 10:39 50 mg ONCE ONE Administration Protocol Critical Care Time Critical Care Time Critical Care Time: Yes Total Critical Care Time: 41 Attestation: Critical care time in the amount of 41 minutes has been provided to the patient in terms of direct patient care, frequent reevaluation on IV morphine, review and interpretation of medical data and results, and management of potentially life-threatening conditions. This is all outside of any medical procedures. Discharge Plan Discharge Clinical Impression: Hypertensive urgency, Hypertension, Diarrhea Patient Disposition: Home, Self-Care Instructions: Traveler's Diarrhea (ED), Seasoning Without Salt (DC), Low-Sodium Diet (ED), Hypertension (ED) Additional Instructions: Your pancreatic enzyme was slightly elevated. Make sure you are consuming alcohol in moderation as excessive alcohol consumption can affect your pancreas. Your labs were otherwise normal. You tested negative for COVID. Your stool was sent off for testing of various organisms. You will be called with any positive results and will be treated accordingly at that time. Imodium is an antimotility agent that has been sent to your pharmacy to help with diarrhea. Take this as needed for loose stools. You may also take [id number] Pepto-Bismol. Please note that this may turn your stool dark in coloration. Your symptoms are most consistent with traveler's diarrhea as you recently return from [place]. If symptoms persist or worsen please return to the emergency department. In the case of an emergency call 911. Your blood pressure is noted to be elevated today. Please make sure you are taking your blood pressure medications as directed. Do not miss any doses. Continue taking 50 mg of metoprolol and 5 mg of amlodipine daily. Try to stick to a low salt diet. See DASH diet information. Salt can cause blood pressure to increase. Monitor your blood pressures at home. If your blood pressure goes above 180/100, you need to return to the emergency department for treatment. Please call your PCP regarding your visit today. They may want to adjust your blood pressure medication. Call them to make an appointment. They will not call you. Bryant enzima pancre?janee estaba ligeramente elevada. Aseg?rese de consumir alcohol con moderaci?n, ya que el consumo excesivo de alcohol puede afectar bryant p?ncreas. Por lo dem?s, vicky an?lisis fueron normales. Tu prueba de COVID fue negativa. Vicky heces fueron enviadas para pruebas de varios organismos. Se le llamar? si hay resultados positivos y se le tratar? en consecuencia en cecily momento. Imodium es un agente antimotilidad que se envi? a bryant farmacia para ayudar con la diarrea. [place] esto seg?n sea necesario para las heces blandas. Tambi?n puede nakul Pepto-Bismol de venta francisco. Tenga en cuenta que esto puede oscurecer las heces. Vicky s?ntomas son m?s consistentes con los de la diarrea del viajero, ya que recientemente regres? de [place]. Si los s?ntomas persisten o empeoran, regrese al departamento de emergencias. En rocky de emergencia llame al 911. Se observa que bryant presi?n arterial est? elevada horom. Aseg?rese de nakul vicky medicamentos para la presi?n arterial seg?n las indicaciones. No omita ninguna dosis. Contin?e tomando 50 mg de metoprolol y 5 mg de amlodipino al d?a. Intente seguir afshan dieta baja en yee. Consulte la informaci?n sobre la dieta DASH. La yee puede hacer que aumente la presi?n arterial. Controle bryant presi?n arterial en casa. Si bryant presi?n arterial supera los 180/100, debe regresar al departamento de emergencias para recibir tratamiento. Llame a bryant PCP con respecto a bryant visita de hoy. Es posible que quieran ajustar bryant medicaci?n para la presi?n arterial. Ll?melos para concertar afshan mehul. No te llamar?n. Prescriptions: No Action metoprolol succinate [Toprol XL] 25 mg tablet extended release 24 hr 25 mg PO DAILY Qty: 30 3RF metoprolol succinate [Toprol XL] 50 mg tablet extended release 24 hr 50 mg PO DAILY Qty: 30 1RF diphenhydramine HCl [Benadryl] 25 mg capsule 25 mg PO TID PRN (Reason: itchiness) 10 Days Qty: 30 0RF meloxicam 7.5 mg tablet 7.5 mg PO DAILY simvastatin 20 mg tablet 20 mg PO QPM amlodipine 5 mg tablet 5 mg PO DAILY aspirin [Adult Aspirin Regimen] 81 mg tablet,delayed release (DR/EC) 81 mg PO DAILY Referrals: [facility] [place] [facility] [Provider Group] Print Language: Mexican
[2023-11-05 11:57] VITALS: BP 190/122; PULSE 65; RESP 16; O2SAT 97
[2023-11-05 12:18] LABS: COVID-19 Test Negative (Negative); IDNOW Serial# 152EDE1D
[2023-11-05 13:54] VITALS: BP 202/130; PULSE 83; RESP 19; O2SAT 96
[2023-11-05 14:00] VITALS: BP 182/115; PULSE 75; RESP 18; TEMP 37.1; O2SAT 98
[2023-11-05] MEDS: Acetaminophen 325 MG TABLET 975 MG PO (14:17)
[2023-11-05] MEDS: Labetalol HCL 100 MG TABLET PO (14:17)
--- NOTE | 2023-11-05 14:20 | PC.NURSE ---
patient ate lunch brought by visitor. medicated per the DEC, resting quietly in room. bp continues to be elevated.
[2023-11-05 15:24] VITALS: BP 169/101; PULSE 71; RESP 20; O2SAT 97
[2023-11-05 16:00] LABS: CDiff Gene PCR NEGATIVE (Negative)
[2023-11-06 12:46] LABS: Adenovirus F 40/41 Not Detected (Not Detect.); Astrovirus Not Detected (Not Detect.); Campylobacter Not Detected (Not Detect.); Cryptosporidium Not Detected (Not Detect.); Cyclospora cayetanensis Not Detected (Not Detect.); E. coli EAEC Detected (Not Detect.); E. coli EPEC Not Detected (Not Detect.); E. coli ETEC Not Detected (Not Detect.); E. coli STEC Not Detected (Not Detect.); Entamoeba histolytica Not Detected (Not Detect.); Giardia lamblia Not Detected (Not Detect.); Norovirus GI/GII Not Detected (Not Detect.); Plesiomonas shigelloides Not Detected (Not Detect.); Rotavirus A Not Detected (Not Detect.); Salmonella Not Detected (Not Detect.); Sapovirus Not Detected (Not Detect.); Shigella sp./EIEC Not Detected (Not Detect.); Vibrio Not Detected (Not Detect.); Vibrio Cholerae Not Detected (Not Detect.); Yersinia enterocolitica Not Detected (Not Detect.)
== END 2023-11-05 16:59 | disposition home or self-care (01) ==
PROVIDERS: Physician Assistant Medical; Emergency Provider Emergency Medicine Emergency Medical Services
DX: I16.0 Hypertensive urgency (principal); R19.7 Diarrhea, unspecified; I25.10 Atherosclerotic heart disease of native coronary artery without angina pectoris; R10.9 Unspecified abdominal pain; R11.2 Nausea with vomiting, unspecified; Z11.52 Encounter for screening for COVID-19; Z79.899 Other long term (current) drug therapy
CPT/HCPCS: 36415; 74176; 80048; 80076; 83690; 84484; 85025; 87493; 87507; 87635; 93005; 96360; 99284

== ENCOUNTER → 2023-11-05 08:14 | Outpatient (BNV) | payer MEDICAID, SELFPAY | PROVIDERS: Emergency Provider Emergency Medicine Emergency Medical Services; Visit Provider Internal Medicine Cardiovascular Disease | DX: R10.9 Unspecified abdominal pain (principal); R94.31 Abnormal electrocardiogram [ECG] [EKG] | CPT/HCPCS: 93010 ==

== ENCOUNTER 2024-10-20 15:29 | Emergency (ER) | payer MEDICAID, SELFPAY ==
[2024-10-20] VITALS (12 sets, daily range): BP systolic 181–216; BP diastolic 102–170; PULSE 60–72; RESP 13–20; TEMP 36.5–36.7; O2SAT 95–100; BMI 33.7
--- NOTE | 2024-10-20 | ECG_ITS ---
Test Reason : hypertension Blood Pressure : */* mmHG Vent. Rate : 68 BPM Atrial Rate : 68 BPM P-R Int : 180 ms QRS Dur : 92 ms QT Int : 396 ms P-R-T Axes : 29 1 -3 degrees QTcB Int : 421 ms Normal sinus rhythm Minimal voltage criteria for LVH, may be normal variant ( R in aVL ) Nonspecific T wave abnormality Abnormal ECG When compared with ECG of 05-Nov-2023 08:32, Nonspecific T wave abnormality, worse in Inferior leads Referred By: Generic ED Physician Electronically Signed By: Gurwinder Carver
--- NOTE | ~2024-10-20 | XR_ITS ---
CLINICAL HISTORY: 4th digit crush injury 3 view right 4th digit Comparison: None Findings: No fractures or dislocations. No significant arthritic change. No erosions. No radiopaque foreign body. IMPRESSION: 1. No acute findings This document has been electronically signed by: Jennie Villareal MD on 10/20/2024 18:09:50
[2024-10-20 16:26] LABS: MANUAL DIFF FLAG NO
[2024-10-20 16:28] LABS: Basophils Absolute Auto 0.1 X10*3/uL (0.0-0.2); Basophils Percent Auto 0.8 % (0-2); Eosinophils Absolute Auto 0.2 X10*3/uL (0.0-0.4); Eosinophils Percent Auto 1.8 % (0-4); Hemoglobin 16.5 g/dl (14.0-18.0); Imm Gran Abs Auto 0.05 X10*3/uL (0.00-0.03); Imm Gran Pct Auto 0.6 % (0.0-0.4); Lymphocytes Absolute Auto 1.9 X10*3/uL (1.2-4.9); Lymphocytes Percent Auto 21.4 % (20-40); Mean Corpuscular HGB Conc 34.4 g/dl (31.0-36.0); Mean Corpuscular Hemoglobin 29.9 pg (27.0-33.0); Mean Corpuscular Volume 87.1 fL (80.0-98.0); Mean Platelet Volume 12.1 fL (9.4-12.4); Monocytes Absolute Auto 0.7 X10*3/uL (0.1-1.2); Monocytes Percent Auto 8.4 % (2-11); Neutrophils Absolute Auto 5.9 x10*3/uL (2.0-8.3); Platelet Count 161 X10*3/uL (160-400); Red Blood Count 5.51 X10*6/uL (4.60-5.80); Red Cell Distribution Width 13.6 % (11.0-16.0); White Blood Count 8.8 X10*3/uL (4.8-10.8)
[2024-10-20 16:44] LABS: Alanine Aminotransferase 65 U/L (0-40); Albumin Level 4.3 g/dL (3.5-5.0); Alkaline Phosphatase 96 U/L (39-117); Anion Gap 7 (12-20); Aspartate Amino Transferase 37 U/L (5-37); Bilirubin Total 0.3 mg/dL (0.0-1.0); Blood Urea Nitrogen 23 mg/dL (9-16); Carbon Dioxide 28 mmol/L (22-29); Chloride 109 mmol/L (96-108); Creatinine Clr Calc Pharmacy 73.7; Estimated Glomerular Filt Rate 48; Glucose Random 92 mg/dL (60-115); Potassium 4.5 mmol/L (3.3-5.1); Sodium 139 mmol/L (135-145); Total Protein 7.1 g/dL (6.5-8.0)
--- NOTE | 2024-10-20 16:44 | ED.GENADULT ---
HPI - General Adult General Chief complaint: General Medical Stated complaint: hypertensive Time Seen by Provider: 10/20/24 15:52 Source: patient and EMS Mode of arrival: EMS Limitations: no limitations History of Present Illness ED Provider: sapphire leonard np HPI narrative: Patient is a 49-year-old male who presents emergency department for evaluation. He reports that he presented today to [facility] for a routine physical, admits that he had not seen the primary care in approximately 3 years. He also has spent some time in [place] at which point he was receiving refills of his antihypertensive medications. He reports that he has been compliant with metoprolol succinate 50 mg daily as well as amlodipine 5 mg daily. He was not routinely checking his blood pressure. However on evaluation today his blood pressure was 200s over 120s. He is entirely asymptomatic. Was sent by ambulance from [facility] to the ED for further evaluation. He denies headaches, dizziness, lightheadedness, vision changes, neck pain, chest pain, shortness of breath, numbness or tingling of the extremities. He does state that 2 nights ago he slammed his right 4th digit the distal tip in the car door and this has been increasingly painful for him he thinks this may possibly be contributing to his elevated blood pressure Related Data Home Medications ?Medication ?Instructions ?Recorded ?Confirmed amlodipine 5 mg tablet 5 mg PO DAILY 01/29/23 01/29/23 aspirin 81 mg tablet,delayed 81 mg PO DAILY 01/29/23 01/29/23 release (Adult Aspirin Regimen) meloxicam 7.5 mg tablet 7.5 mg PO DAILY knee pain 01/29/23 01/29/23 simvastatin 20 mg tablet 20 mg PO QPM cholesterol 01/29/23 01/29/23 Previous Rx's ?Medication ?Instructions ?Recorded metoprolol succinate 25 mg 25 mg PO DAILY #30 tabs 06/22/21 tablet,extended release 24 hr (Toprol XL) diphenhydramine HCl 25 mg capsule 25 mg PO TID PRN itchiness 10 days 07/07/21 (Benadryl) #30 caps metoprolol succinate 50 mg 50 mg PO DAILY #30 tabs 07/20/21 tablet,extended release 24 hr (Toprol XL) amlodipine 10 mg tablet 10 mg PO DAILY #30 tabs 10/20/24 metoprolol succinate 50 mg 50 mg PO DAILY #30 tabs 10/20/24 tablet,extended release 24 hr Allergies Allergy/AdvReac Type Severity Reaction Status Date / Time No Known Allergies Allergy Verified 10/20/24 15:57 Review of Systems Review of Systems: Yes all other systems are reviewed and are negative [facility] Past Medical History Attestation statement: The following information was validated with the patient. Source: old records reviewed Medical History Myocardial infarction HTN (hypertension) Surgical History H/O heart artery stent Family History Family History (Updated 01/29/23 @ 13:03 by Aminata Calabrese) Mother No problems noted. Father HTN (hypertension) Social History Social History (Updated 06/22/21 @ 09:28 by Marlene Fernandez DO) Unable to assess alcohol history related to: Unknown Patient Tobacco Use Status: Current everyday Tobacco user Advance Directives: No Advance Directives Information Provided: No Do you have a plan to hurt others: No Plan Physical Exam ED Vital Signs: Vital Signs - 24 hr 10/20/24 15:56 10/20/24 17:28 10/20/24 17:29 Temperature 98.1 F Pulse Rate 72 65 Respiratory Rate 13 20 Blood Pressure 205/124 H 192/129 H 192/129 H Pulse Oximetry 97 98 Oxygen Delivery Method Room Air Room Air 10/20/24 18:34 10/20/24 19:04 10/20/24 19:55 Temperature 97.9 F 97.7 F Pulse Rate 70 68 64 Respiratory Rate 14 16 17 Blood Pressure 210/130 H 201/136 H 181/102 H Pulse Oximetry 96 100 99 Oxygen Delivery Method Room Air Room Air Room Air 10/20/24 20:10 10/20/24 20:25 Temperature Pulse Rate 61 60 Respiratory Rate 16 17 Blood Pressure 186/126 H 199/117 H Pulse Oximetry 99 99 Oxygen Delivery Method Room Air Room Air BMI result Body Mass Index 33.7 Medications Administered Discontinued Medications Generic Name Dose Route Start Last Admin Trade Name Freq PRN Reason Stop Dose Admin Amlodipine Besylate 5 mg 10/20/24 16:51 10/20/24 17:29 Amlodipine Besylate 5 Mg Tablet PO 10/20/24 16:52 5 mg ONCE ONE Administration Protocol Metoprolol Tartrate 2.5 mg 10/20/24 19:04 10/20/24 19:38 Metoprolol Tartrate 5 Mg/5 Ml Vial IVPUSH 10/20/24 19:05 2.5 mg ONCE ONE Administration Protocol Medical Decision Making Medical Decision Making [facility] Narrative: Patient is a 49-year-old male past medical history of Hypertension, myocardial infarction with PCI 2 stents in 2011 who presents emergency department for evaluation of asymptomatic hypertensive urgency as per HPI. Blood pressure on arrival 205/24 with pulse of 72. No apparent distress. Speaking clear full sentences. No focal neurological deficits. He does endorse a recent crush injury to the distal tip of the right 4th digit, mild surrounding erythema, decreased range of motion to the DIP, and subungual hematoma. XR is without evidence of fracture to the distal tuft. Given duration since its onset, would not suggest trephination for subungual hematoma. Discussed localized wound care. Reports tetanus is up-to-date. Patient given an additional dose of amlodipine 5 mg in addition to metoprolol 2.5 mg IV, blood pressure has decreased to 190s/110, again asymptomatic hypertension and someone who likely has had uncontrolled hypertension for some time he has not been following with the primary care doctor regularly. I have recommended that he increase his home amlodipine dosage to 10 mg and I sent a prescriptions to his pharmacy. Discussed with him strict return precautions. All questions answered. Stable for discharge Differential Diagnosis Differential Diagnoses: The differential diagnosis associated with the presentation includes (Hypertensive urgency, hypertensive emergency, asymptomatic hypertension, fracture to the right hand 4th digit distal tuft) Admission/Observation Consideration of admission/observation: Escalation of care including admission/observation considered Lab Data [facility] Lab Attestation statement: I reviewed the patient's lab results. CBC is without leukocytosis anemia or thrombocytopenia. No electrolyte derangement. Baseline renal function no evidence of SHERITA. High sensitive troponin within normal range. 10/20/24 16:22 10/20/24 16:22 Labs: Lab Results 10/20/24 10/20/24 Range/Units 16:22 18:33 WBC 8.8 (4.8-10.8) X10*3/uL RBC 5.51 (4.60-5.80) X10*6/uL Hgb 16.5 (14.0-18.0) g/dl Hct 48.0 (42.0-52.0) % MCV 87.1 (80.0-98.0) fL MCH 29.9 (27.0-33.0) pg MCHC 34.4 (31.0-36.0) g/dl RDW 13.6 (11.0-16.0) % Plt Count 161 (160-400) X10*3/uL MPV 12.1 (9.4-12.4) fL Immature Gran % (Auto) 0.6 H (0.0-0.4) % Neut % (Auto) 67.0 (45-73) % Lymph % (Auto) 21.4 (20-40) % Pratt % (Auto) 8.4 (2-11) % Eos % (Auto) 1.8 (0-4) % Baso % (Auto) 0.8 (0-2) % Lymph # (Auto) 1.9 (1.2-4.9) X10*3/uL Pratt # (Auto) 0.7 (0.1-1.2) X10*3/uL Eos # (Auto) 0.2 (0.0-0.4) X10*3/uL Baso # (Auto) 0.1 (0.0-0.2) X10*3/uL Abs Immat Gran (auto) 0.05 H (0.00-0.03) X10*3/uL Absolute Neuts (auto) 5.9 (2.0-8.3) x10*3/uL Absolute Nucleated RBC 0.000 (0.0-0.012) X10*3/uL Nucleated RBC % (auto) 0.0 (0.0-0.2) /100WBC Sodium 139 (135-145) mmol/L Potassium 4.5 (3.3-5.1) mmol/L Chloride 109 H (96-108) mmol/L Carbon Dioxide 28 (22-29) mmol/L Anion Gap 7 L (12-20) BUN 23 H (9-16) mg/dL Creatinine 1.56 H (0.5-1.4) mg/dL Estim Creat Clear Calc 73.7 Estimated GFR 48 Random Glucose 92 (60-115) mg/dL Calcium 9.0 (8.4-10.2) mg/dL Total Bilirubin 0.3 (0.0-1.0) mg/dL AST 37 (5-37) U/L ALT 65 H (0-40) U/L Alkaline Phosphatase 96 (39-117) U/L Troponin I High Sens 20.7 24.0 (<3.5-35.0) ng/L Total Protein 7.1 (6.5-8.0) g/dL Albumin 4.3 (3.5-5.0) g/dL Independent Interpretation I performed an independent interpretation of an: EKG (EKG revealing normal sinus rhythm with ventricular rate of 68, QTC 421, no ST elevation, nonspecific T-wave abnormality) and Plain X-Ray (No acute fracture dislocation to the distal tuft of the right 4th finger) Radiology Impression Discussion of test interpretation with radiology: I have reviewed the radiologist's reading. Radiologist Impression: 3 view right 4th digit Comparison: None Findings: No fractures or dislocations. No significant arthritic change. No erosions. No radiopaque foreign body. IMPRESSION: 1. No acute findings Discharge Plan Discharge Clinical Impression: Hypertension, uncontrolled Patient Disposition: Home, Self-Care Instructions: Heart Healthy Diet (ED), How to Take a Blood Pressure (ED), Hypertensive Crisis (ED) Additional Instructions: I have sent prescriptions to your pharmacy, continue taking metoprolol succinate 50 mg daily, I am increasing your amlodipine from 5 mg to 10 mg daily. Please keep a log of your blood pressure readings, it is important to check them daily 2 hours after taking your blood pressure medications and once in the evening. You should take them when you are sitting down resting for about 10 minutes with legs and cross and not during periods of high stress. Please write down his blood pressure readings and provide them to your primary care doctor for further evaluation. They may then consider whether they want to make additional changes to your medications. Return to emergency department any new or worsening symptoms or concerns which includes but is not limited to headache, dizziness, lightheadedness, vision changes, neck pain, chest pain, shortness of breath, difficulty breathing. Prescriptions: New amlodipine 10 mg tablet 10 mg PO DAILY Qty: 30 0RF metoprolol succinate 50 mg tablet extended release 24 hr 50 mg PO DAILY Qty: 30 0RF No Action metoprolol succinate [Toprol XL] 25 mg tablet extended release 24 hr 25 mg PO DAILY Qty: 30 3RF metoprolol succinate [Toprol XL] 50 mg tablet extended release 24 hr 50 mg PO DAILY Qty: 30 1RF diphenhydramine HCl [Benadryl] 25 mg capsule 25 mg PO TID PRN (Reason: itchiness) 10 Days Qty: 30 0RF meloxicam 7.5 mg tablet 7.5 mg PO DAILY simvastatin 20 mg tablet 20 mg PO QPM amlodipine 5 mg tablet 5 mg PO DAILY aspirin [Adult Aspirin Regimen] 81 mg tablet,delayed release (DR/EC) 81 mg PO DAILY Referrals: Hanny Soto MD [Primary Care Provider] - Print Language: Serbian
[2024-10-20 16:50] LABS: Troponin-I High Sensitivity 20.7 ng/L (<3.5-35.0)
[2024-10-20] MEDS: amLODIPine Besylate 5 MG TABLET PO (17:29)
--- NOTE | 2024-10-20 19:05 | MHC.EDTECH ---
This tech took over care of pt at 1900,rounded and introduced self to pt,vitals taken,BP is elevated 201/136,Kalli RN made aware,patient appears comfortable talking on phone,call blackmon in reach
[2024-10-20] MEDS: Metoprolol Tartrate 5 MG/5 ML VIAL 2.5 MG IVPUSH (19:38)
== END 2024-10-20 22:16 | disposition home or self-care (01) ==
PROVIDERS: Nurse Practitioner Family; Emergency Provider Student in an Organized Health Care Education/Training Program; PCP General Practice
DX: I10 Essential (primary) hypertension (principal); M79.644 Pain in right finger(s); I25.2 Old myocardial infarction; F17.200 Nicotine dependence, unspecified, uncomplicated; Z79.82 Long term (current) use of aspirin; Z79.02 Long term (current) use of antithrombotics/antiplatelets; Z79.899 Other long term (current) drug therapy
CPT/HCPCS: 36415; 73140; 80053; 84484; 85025; 93005; 96374; 99284; 99285

== ENCOUNTER → 2024-10-20 16:18 | Outpatient (BNV) | payer MEDICAID, SELFPAY | PROVIDERS: Emergency Provider Student in an Organized Health Care Education/Training Program; PCP General Practice; Visit Provider Internal Medicine Cardiovascular Disease | DX: R94.31 Abnormal electrocardiogram [ECG] [EKG] (principal) | CPT/HCPCS: 93010 ==

== ENCOUNTER → 2024-10-20 16:58 | Outpatient (BNV) | payer MEDICAID, SELFPAY | PROVIDERS: Emergency Provider Student in an Organized Health Care Education/Training Program; PCP General Practice; Visit Provider Nuclear Medicine | DX: M79.641 Pain in right hand (principal) | CPT/HCPCS: 73140 ==

== ENCOUNTER 2024-10-30 11:00 | Emergency (ER) | payer MEDICAID, SELFPAY ==
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
[2024-10-30 12:51] VITALS: BP 185/120; PULSE 80; RESP 16; TEMP 36.6; O2SAT 97; BMI 34.4
--- NOTE | 2024-10-30 12:54 | ED.GENADULT ---
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 Ilan Barrera HPI narrative: 49-year-old male history of diabetes mellitus, coronary artery disease, myocardial infarction x2 who presents emergency department for evaluation of facial/nose injury while working under the flower of a car. Patient states that the flower of the car crash down on his nose. The patient states that the injury occurred at 09:00 hours this morning. Patient was had a [id number] headache since that time. He also sustained a laceration to his nose. Does not know in his last tetanus shot was given. Patient was not know in his last tetanus shot was given. Related Data Home Medications ?Medication ?Instructions ?Recorded ?Confirmed amlodipine 5 mg tablet 5 mg PO DAILY 01/29/23 01/29/23 aspirin 81 mg tablet,delayed 81 mg PO DAILY 01/29/23 01/29/23 release (Adult Aspirin Regimen) meloxicam 7.5 mg tablet 7.5 mg PO DAILY knee pain 01/29/23 01/29/23 simvastatin 20 mg tablet 20 mg PO QPM cholesterol 01/29/23 01/29/23 Previous Rx's ?Medication ?Instructions ?Recorded metoprolol succinate 25 mg 25 mg PO DAILY #30 tabs 06/22/21 tablet,extended release 24 hr (Toprol XL) diphenhydramine HCl 25 mg capsule 25 mg PO TID PRN itchiness 10 days 07/07/21 (Benadryl) #30 caps metoprolol succinate 50 mg 50 mg PO DAILY #30 tabs 07/20/21 tablet,extended release 24 hr (Toprol XL) amlodipine 10 mg tablet 10 mg PO DAILY #30 tabs 10/20/24 metoprolol succinate 50 mg 50 mg PO DAILY #30 tabs 10/20/24 tablet,extended release 24 hr Allergies Allergy/AdvReac Type Severity Reaction Status Date / Time No Known Allergies Allergy Verified 10/30/24 12:52 Review of Systems Review of Systems: Yes all other systems are reviewed and are negative PMFSH Past Medical History Medical History Myocardial infarction HTN (hypertension) Surgical History H/O heart artery stent Family History Family History (Updated 01/29/23 @ 13:03 by Aminata Calabrese) Mother No problems noted. Father HTN (hypertension) Social History Social History (Updated 06/22/21 @ 09:28 by Marlene Fernandez DO) Unable to assess alcohol history related to: Unknown Patient Tobacco Use Status: Current everyday Tobacco user Smoked in Last 30 Days: No Advance Directives: No Advance Directives Information Provided: Yes Physical Exam ED Vital Signs: Vital Signs - 24 hr 10/30/24 12:51 10/30/24 16:54 Temperature 97.9 F 98.5 F Pulse Rate 80 69 Respiratory Rate 16 20 Blood Pressure 185/120 H 180/119 H Pulse Oximetry 97 98 Oxygen Delivery Method Room Air Room Air BMI result Body Mass Index 34.4 Vital signs revealed an elevated blood pressure of 185/120 otherwise Exam: General: Awake, alert in no distress Head: Normocephalic, patient has a 1.0 cm full skin laceration to the bridge of his nose. This area is tender to palpation, there is no significant soft tissue swelling or obvious deformity. Nasal septum is in the mid line with no nasal hematoma noted. EENT: PERRL, Lids normal, sclera normal, conjunctiva normal, nose normal , ears normal, throat without erythema or exudates Neck: Supple, no adenopathy Neuro: Awake, alert, oriented, normal speech, cranial nerves intact, moves all extremities symmetrically Psych: Pleasant, cooperative Course Course Course Narrative: This is a rapid medical exam performed by Eddie Roberts NP: Additional HPI, ROS, PE not included below will be deferred to primary provider. Patient is a 49-year-old male with history of HTN presenting to the ED with complaint of injury to nose. States the flower of his car accidentally fell onto his face. Complains of headache, nose pain. Unknown last Tdap. States that he took his BP medication this morning. Plan: CT Medications Administered Discontinued Medications Generic Name Dose Route Start Last Admin Trade Name Freq PRN Reason Stop Dose Admin Diphtheria/Tetanus/Acell Pertussis 0.5 ml 10/30/24 14:47 10/30/24 16:51 Diphth,Pertus(Acell),Tet Adult 0.5 Ml Syringe IM 10/30/24 14:48 0.5 ml .ONCE ONE Administration Lidocaine HCl 5 ml 10/30/24 16:43 10/30/24 17:34 Lidocaine Hcl 1 % Mpf 5 Ml Vial INFILTRATI 10/30/24 16:44 5 ml ONCE STA Administration Procedures Laceration 1.5 cm nasal bridge laceration: Site: face (Nasal bridge) Size (cm): 1.5 Description: flap Depth: simple, single layer Local Anesthetic: lidocaine 1% Amount of anesthesia used (mL): 5 Pre-repair: wound explored Skin layer closed with: other (Chromic) Size (cm): 6-0 Number of sutures: 12 Technique: simple, interrupted Medical Decision Making Medical Decision Making MDM Narrative: 49-year-old male history of diabetes mellitus, coronary artery disease, myocardial infarction x2 who presents emergency department for evaluation of facial/nose injury while working under the flower of a car, with incident occurring at 09:00 hours. Patient was complaining of pain in his nose and a headache. It was not know his last tetanus shot was given. Patient's blood pressure was elevated. Physical examination did reveal tenderness palpation of the bridge of the nose as well as a suturable laceration to the bridge of the nose. Differential diagnosis: ?Includes but is not limited to skull fracture, nasal fracture, facial fracture, laceration Course: 17:04 CT scan of the head and facial bones revealed no skull fracture, intracranial bleed or facial/nasal fractures. The patient had a laceration to his nose which required suture repair. The repair was done with 6.0 chromic sutures for a total of 12 sutures. Bacitracin was applied to the wound. Patient was given a Tdap vaccination. The patient was given printed and verbal instructions and discharged home. Admission/Observation Consideration of admission/observation: Escalation of care including admission/observation considered (Yes) Radiology Impression Discussion of test interpretation with radiology: I have reviewed the radiologist's reading. Radiologist Impression: CT facial bones wo IV con IMPRESSION: No evidence of fracture of the facial bones. Electronically signed by: Eloy Boswell MD 10/30/2024 01:[address] head/brain wo IV con IMPRESSION: Unremarkable unenhanced head CT. Electronically signed by: Eloy Boswell MD 10/30/2024 01:55 PM EST Discharge Plan Discharge Clinical Impression: Facial injury, Laceration of nose, Headache Patient Disposition: Home, Self-Care Instructions: Laceration (ED) Additional Instructions: The CT scan of your head and face revealed no broken bones of your skull, face or nose. He was also no bleeding in your brain which is reassuring The cut (laceration) on your nose was fixed with 6.0 chromic stitches for a total 12 stitches. The thread is very thin, be very careful with touching or rubbing your nose cause you can break open the wound. Apply bacitracin twice a day until the stitches dissolve. The stitches should dissolve in 12-14 days. He has had out completely resolve then you should see your doctor or go to an urgent care clinic to have the stitches removed. Watch for signs of infection which include redness, swelling, drainage of pus, red lines going away from the wound, increased pain. Take ibuprofen 200 mg pills, 2 pills every 6 hours as needed for pain or fever. Take Tylenol (acetaminophen) 500 mg pills, 2 pills every 6 hours as needed for pain or fever. Follow-up with your doctor in 2 days. Please return to the emergency department if your symptoms get worse or if you develop any symptoms that are concerning to you. You were given a tetanus, diptheria and Pertussin (Tdap) vaccination here in the emergency department. This is good for up to 5 years. If you have a contaminated dirty, open wound between 5 and 10 years you will need a repeat Tdap vaccination. You will need a booster Tdap vaccination in 10 years. Prescriptions: No Action metoprolol succinate [Toprol XL] 25 mg tablet extended release 24 hr 25 mg PO DAILY Qty: 30 3RF metoprolol succinate [Toprol XL] 50 mg tablet extended release 24 hr 50 mg PO DAILY Qty: 30 1RF diphenhydramine HCl [Benadryl] 25 mg capsule 25 mg PO TID PRN (Reason: itchiness) 10 Days Qty: 30 0RF amlodipine 10 mg tablet 10 mg PO DAILY Qty: 30 0RF metoprolol succinate 50 mg tablet extended release 24 hr 50 mg PO DAILY Qty: 30 0RF meloxicam 7.5 mg tablet 7.5 mg PO DAILY simvastatin 20 mg tablet 20 mg PO QPM amlodipine 5 mg tablet 5 mg PO DAILY aspirin [Adult Aspirin Regimen] 81 mg tablet,delayed release (DR/EC) 81 mg PO DAILY Print Language: Lao
--- OUTSIDE RECORDS SUMMARY | 2024-10-30 16:47 | XMS_ITS | Clinical Summary ---
Author Organization [employer] Address [address] [facility] 7t [place] [address] Care Team Providers Care Dairy Supplies Sales Representative Name Role Phone Hanny Soto MD Primary Care Provider [phone] Allergies No known active allergies Medications simvastatin (Zocor) 20 MG tablet take 1 tablet by oral route every day in the evening for cholesterol 07/13/20 22 Active meloxicam (Mobic) 7.5 MG tablet take 1 tablet by oral route every day for knee pain 07/13/20 22 Active acetaminophen (Tylenol 8 Hour) 650 MG ER tablet Take 1 tablet by mouth every 8 (eight) hours. 05/25/20 22 Active hydrOXYzine HCl (Atarax) 25 MG tablet take 1 tablet by oral route up to three times a day as needed for anxiety 07/13/20 22 Active amLODIPine (Norvasc) 5 MG tabletIndicat ions:Hyperten sive urgency Take 1 tablet (5 mg) by mouth Once per day. 30 tablet 1 10/20/19 25 Active metoprolol succinate XL (Toprol-XL) 50 MG 24 hr tabletIndicat ions:Hyperten sive urgency Take 1 tablet (50 mg) by mouth Once per day. 30 tablet 1 10/20/19 25 Active amLODIPine (Norvasc) 5 MG tablet Take 1 tablet by mouth at bed time. 07/13/20 025 Discontinued(Re order (will not trigger notification to Pharmacy)) metoprolol succinate XL (Toprol-XL) 50 MG 24 hr tablet Take 1 tablet by mouth at bed time. 07/13/20 025 Discontinued(Re order (will not trigger notification to Pharmacy)) Active Problems Problem Noted Date Diagnosed Date Hypertensive urgency 08/24/2022 Assessment & Plan (10/20/2024 3:09 PM EST): Patient with a Pmhx significant for CAD and uncontrolled HTN presents today for a PE BP found to be consistently > 200 Plan: Given his Hx of CAD , needs to be evaluated in the ER to normalize blood pressure, may require labetalol. Pt to follow up with PCP after being evaluated in the ER. Pt agreeable with plan Transported via ambulance, signed off to [facility] Encounters Date Type Department Care Team Description 10/20/2024 2:30 PM EST Office Visit [address] [address] Jose Castellon MD Hypertensive urgency (Primary Dx) 10/20/2024 Orders Only GENERIC EXTERNAL DATA DEPARTMENT Provider, Generic External Data 10/20/2024 Travel 10/09/2024 Patient Outreach [address] [address] Hanny Soto MD Pre-visit Planning (Pre-visit planning -unable to LVM all numbers are not working.) 10/05/[address] [address] Hanny Soto MD Chart Prep 08/04/[address] [address] Hanny Soto MD No Show 08/03/[address] [address] Hanny Soto MD from Last 3 Months Immunizations Name Administration Dates Next Due Tdap 07/13/2022 Social History Tobacco Use Types Packs/Day Years Used Date Smoking Tobacco: Some Days Cigarettes Smokeless Tobacco: Never Tobacco Cessation:Ready to Q uit: Not Asked; Counseling Given: Not Answered Alcohol Use Standard Drinks/Week Comments Not Currently 0 (1 standard drink = 0.6 oz pur e alcohol) Depression Answer Date Recorded Patient Health Questionnaire-9 Score 12 10/20/2024 Patient Health Questionnaire-9 Score 12 10/20/2024 Last PHQ-9: Questionnaire Data Not on file 0 10/20/2024 Housing Stability Answer Date Recorded What is your housing situation today? I have deanne sing 10/20/[address] you li ve. Do you have problems with any of the following? None of the above 10/20/2024 Food Insecurity Answer Date Recorded Within the past 12 months, y ou worried that your food would run out before you got money to buy more: Never True 10/20/2024 Within the past 12 months,th e food you bought just didn't last and you didn't have enough money to get more: Never True Transportation Answer Date Recorded In the past 12 months, has l ack of transportation kept you from medical appts, meetings, work or from getting things needed for daily living? Yes, it has kept me from non-medical meetings, work, or getting things that I need 10/20/2024 Utilities Answer Date Recorded In the past 12 months, has t he electric, gas, oil or water company threatened to shut off services in your home? No 10/20/2024 Depression Answer Date Recorded Patient Health Questionnaire-2 Score 3 10/20/2024 Internet Access Answer Date Recorded Internet Access Q1 I am not sure 10/20/2024 Internet Access Q2 Not on file 10/20/2024 Sex and Gender Information Value Date Recorded Sex Assigned at Male 08/06/2022 10:39 AM EDT Legal Sex Male 10:39 AM EDT Gender Identity Male 08/06/2022 10:39 AM EDT Sexual Orientation Straight 08/06/2022 10 :39 AM EDT Last Filed Vital Signs Vital Sign Reading Time Taken Comments Blood Pressure 210/130 10/20/2024 3:02 PM EST Pulse 78 10/20/2024 2:31 PM EST Temperature 36.5 ??C (97.7 ??F) 10/20/2024 2:31 PM ES T Respiratory Rate 21 10/20/2024 2:31 PM EST Oxygen Saturation 98% 10/20/2024 2:31 PM EST Inhaled Oxygen Concentration - - Weight 109 kg (241 lb) 10/20/2024 2:31 PM EST Height 180.3 cm (5' 11 ) 10/20/2024 2:31 PM EST Body Mass Index 33.61 10/20/2024 2:31 PM EST Plan of Treatment Upcoming Encounters Date Type Department Care Team (Late st Contact Info) Description 12/01/2024 11:30 AM EST Office Visit [facility] [address], [place] [phone] Hanny Soto MD [address] [place], [place] [phone] 12/15/2024 10:30 AM EDT Office Visit [facility] [address], [place] [phone] Hanny Soto MD [address] [place], [place] [phone] Health Maintenance Due Date Last Done Comments Anal Pap 1977 CT Colonography 1977 Colonoscopy 1977 Colorectal Cancer Screening 1977 Dental Oral Exam 1977 Dental Prophylaxis 1977 Dental X-Ray: Bitewings 1977 FIT DNA/Cologuard 1977 FIT 1977 FOBT 1977 HIV Screening 1977 Lipid Panel 1977 Sigmoidoscopy 1977 Pneumococcal Vaccine: Pediatrics (0 to 5 Years) and At-Risk Patients (6 to 64 Years) (1 of 2 - PCV) 1983 Family Planning (PISQ) 1992 Hepatitis C Screening 1995 Hepatitis A Vaccines (1 of 2 - Risk 2-dose series) 1996 Hepatitis B Vaccines (1 of 3 - 19+ 3-dose series) 1996 COVID-19 Vaccine ( - 2023-2 5 season) 2024 09/22/2021, 02/22/2021 Influenza Vaccine (#1) 2024 Depression Monitoring (PHQ-9) 04/19/2025, 10/20/2024 Alcohol/Substance Use Screening 10/20/2025 10/20/2024 Depression Screening 10/20/2025 10/20/2024, 10/20/2024 SDOH Screening 10/20/2025 10/20/2024 Tobacco Screening 10/20/2025 10/20/2024 Dental X-Ray: Full Mouth 12/04/2026 12/03/2023 Zoster Vaccines (1 of 2) 2027 DTaP/Tdap/Td Vaccines (2 - T d or Tdap) 07/13/2032 07/13/2022 RSV Patients and Patients Aged 60 years or older (1 - 1-dose 75+ series) 2052 HIB Vaccines Aged Out No longer eligi ble based on patient's age to complete this topic HPV Vaccines Aged Out No longer eligi ble based on patient's age to complete this topic IPV Vaccines Aged Out No longer eligi ble based on patient's age to complete this topic Meningococcal Vaccine Aged Out No royal roberto eligible based on patient's age to complete this topic RSV under 20 months Aged Out No longe r eligible based on patient's age to complete this topic Rotavirus Vaccines Aged Out No longer eligible based on patient's age to complete this topic Procedures Procedure Name Priority Date/Time Associated Diagnosis Comments HIGH SENSITIVITY TROPONIN I Routine 10/20/2024 6:33 PM EST XR FINGERS 2+ VIEWS RIGHT Routine 10/20/2024 6:09 PM EST HIGH SENSITIVITY TROPONIN I Routine 10/20/2024 4:22 PM EST COMPREHENSIVE METABOLIC PANEL Routine 10/20/2024 4:22 PM EST CBC WITH AUTO DIFFERENTIAL Routine 10/20/2024 4:22 PM EST PANORAMIC RADIOGRAPHIC IMAGE Routine 12/03/2023 11:30 AM EST from Last 3 Months or Most Recently Relevant to Health Maintenance Results * High Sensitivity Troponin I (10/20/2024 6:33 PM EST) Only the most recent of2 resultswithin the time period is included. TROPONIN I HIGH SENSITIVITY 24.0 <3.5 - 35.0 ng/L [facility] Comment:The Mckeon high sens itivity Troponin-I results should beused in conjunction with other diagnostic information suchas ECG, clinical observations and information, and patientsymptoms to aid in the diagnosis of AR. 10/20/2024 6:33 PM EST 10/20/2024 6:37 PM EST us Generic External Data Provider LAB BLOOD ORDERAB LES Final Result [facility] [address] [facility] [place] [address] [phone] * XR Fingers 2+ Views Right (10/20/2024 6:09 PM EST) Anatomical Region Laterality Modality Upper Extremities, Fingers Right Radio graphic Imaging 10/20/2024 6:09 PM EST Narrative 10/20/2024 6:12 PM EST ? [facility] ?[address] ?[place] [address] ?XRay Report ? Signed ? Patient: Medhat Gabriel,Max Hoganar ?MR# ?? : [id number] ? : 1975 ?Acct:[id number] ? Age/Sex: 49 / M ?ADM Date: 10/20/24 ? Loc: HO.ED ? Attending Dr: ? Ordering Physician: Aminata Trevino CNP ?? Date of Service: 10/20/24 ?? Procedure(s): XR finger RT min 2V ?? Accession Number(s): [id number] ? cc: Aminata Trevino CNP; Hanny Soto ? CLINICAL HISTORY: 4th digit crush injury ? 3 view right 4th digit ? Comparison: None ? Findings: ?? No fractures or dislocations. ?? No significant arthritic change. ?? No erosions. No radiopaque foreign body. ? IMPRESSION: ?? 1. No acute findings ? This document has been electronically signed by: Jennie Villareal MD on ?? 10/20/2024 18:09:50 ? Dictated By: ?Jennie Villareal MD ? Signed By: ?<Electronically signed by Jennie Villareal MD in OV> ? 10/20/24 181 ? DD/ 1809 ? TD/TT: 10/20/24 1809 ? Auto Wrecker: ? Procedure Note Jeni, Eric - 10/21/2024 [facility] [address] [facility] [place] [address] XRay Report Signed Patient: Meléndez Max Gabriel OmarMR# : [id number] : 1975Acct:[id number] Age/Sex: 49 / MADM Date: 10/20/24 Loc: HO.ED Attending Dr: Ordering Physician: Aminata Trevino CNP Date of Service: 10/20/24 Procedure(s): XR finger RT min 2V Accession Number(s): [id number] cc: Aminata Trevino CNP; Hanny Soto CLINICAL HISTORY: 4th digit crush injury 3 view right 4th digit Comparison: None Findings: No fractures or dislocations. No significant arthritic change. No erosions. No radiopaque foreign body. IMPRESSION: 1. No acute findings This document has been electronically signed by: Jennie Villareal MD on 10/20/2024 18:09:50 Dictated By: Jennie Villareal MD Signed By: <Electronically signed by Jennie Villareal MD in OV> 10/20/241810 DD/ 08 TD/TT: 10/20/241808 Auto Wrecker: [facility] External Provider IMG XR PROCEDURES Edited Result - Final * (ABNORMAL) CBC auto differential (10/20/2024 4:22 PM EST) White Blood Count 8.8 4.8 - 10.8 X10*3/uL [facility] Red Blood Count 5.51 4.60 - 5.80 X10*6/uL [facility] Hemoglobin 16.5 14.0 - 18.0 g/dl [facility] Hematocrit 48.0 42.0 - 52.0 % [facility] Mean Corpuscular Volume 87.1 80.0 - 98.0 fL [facility] Mean Corpuscular Hemoglobin 29.9 27.0 - 33.0 pg [facility] Mean Corpuscular HGB Conc 34.4 31.0 - 36.0 g/dl [facility] Red Cell Distribution Width 13.6 11.0 - 16.0 % [facility] Platelet Count 161 160 - 400 X10*3/uL [facility] Mean Platelet Volume 12.1 9.4 - 12.4 fL [facility] Neutrophils Percent Auto 67.0 45 - 73 % [facility] Imm Gran Pct Auto 0.6(H) 0.0 - 0.4 % [facility] Lymphocytes Percent Auto 21.4 20 - 40 % [facility] Monocytes Percent Auto 8.4 2 - 11 % [facility] Eosinophils Percent Auto 1.8 0 - 4 % [facility] Basophils Percent Auto 0.8 0 - 2 % [facility] NRBC Pct Auto 0.0 0.0 - 0.2 /100WBC [facility] Neutrophils Absolute Auto 5.9 2.0 - 8.3 x10*3/uL [facility] Imm Gran Abs Auto 0.05(H) 0.00 - 0.03 X10*3/uL [facility] Lymphocytes Absolute Auto 1.9 1.2 - 4.9 X10*3/uL [facility] Monocytes Absolute Auto 0.7 0.1 - 1.2 X10*3/uL [facility] Eosinophils Absolute Auto 0.2 0.0 - 0.4 X10*3/uL [facility] Basophils Absolute Auto 0.1 0.0 - 0.2 X10*3/uL [facility] NRBC Abs Auto 0.000 0.0 - 0.012 X10*3/uL [facility] 10/20/2024 4:22 PM EST 10/20/2024 4:26 PM EST us Generic External Data Provider LAB BLOOD ORDERAB LES Final Result [facility] [address] [place] [address] [phone] * (ABNORMAL) Comprehensive Metabolic Panel (10/20/2024 4:22 PM EST) Sodium 139 135 - 145 mmol/L [facility] Potassium 4.5 3.3 - 5.1 mmol/L [facility] Chloride 109(H) 96 - 108 mmol/L [facility] Carbon Dioxide 28 22 - 29 mmol/L [facility] Anion Gap 7(L) 12 - 20 [facility] Urea Nitrogen (BUN) 23(H) 9 - 16 mg/dL [facility] Creatinine, Serum 1.56(H) 0.5 - 1.4 mg/dL [facility] Creatinine Clr Calc Pharmacy 73.7 [facility] Comment:eGFR (calculated fro m the MDRD study equation) and eCrCl(calculated from the Cockcroft-Gault equation) are based ondifferent parameters and may not yield comparable results.If eCrCl result is absurd, please check patient'sheight/weight. Estimated Glomerular Filt Rate 48 [facility] Comment:Chronic Kidney Disea se: Estimated GFR < 60 mL/min/1.64s3Vpwxch Kidney Disease: Estimated GFR < 15 mL/min/1.73m2 Glucose 92 60 - 115 mg/dL [facility] Calcium 9.0 8.4 - 10.2 mg/dL [facility] Bilirubin, Total 0.3 0.0 - 1.0 mg/dL [facility] Aspartate Amino Transferase 37 5 - 37 U/L [facility] Alanine Aminotransferase 65(H) 0 - 40 U/L [facility] Total Protein 7.1 6.5 - 8.0 g/dL [facility] Albumin Level 4.3 3.5 - 5.0 g/dL [facility] Alkaline Phosphatase 96 39 - 117 U/L [facility] 10/20/2024 4:22 PM EST 10/20/2024 4:26 PM EST us Generic External Data Provider LAB BLOOD ORDERAB LES Final Result [facility] [address] [place] [address] [phone] from Last 3 Months Insurance [facility] [employer] Care Teams Dairy Supplies Sales Representative Relationship Specialty Start Date End Date Hanny Soto MD [address] [place] [phone] PCP - General Family Medicine 07/13/22
--- OUTSIDE RECORDS SUMMARY | 2024-10-30 16:47 | XMS_ITS | Encounter Summary ---
Author Organization [employer] [facility] Address [address] [facility] 7t [place] [address] Care Team Providers Care Grommet Worker Name Role Phone Hanny Soto MD Primary Care Provider [phone] Encounter Details Date Type Department Care Team ([facility] Contact Info) Description 10/20/2024 Orders Only GENERIC EXTERNAL DATA DEPARTMENT Provider, Generic External Data Social History Tobacco Use Types Packs/Day Years Used Date Smoking Tobacco: Some Days Cigarettes Smokeless Tobacco: Never Alcohol Use Standard Drinks/Week Comments Not Currently 0 (1 standard drink = 0.6 oz pur e alcohol) Depression Answer Date Recorded Patient Health Questionnaire-9 Score 12 10/20/2024 Patient Health Questionnaire-9 Score 12 10/20/2024 Last PHQ-9: Questionnaire Data Not on file 0 10/20/2024 Housing Stability Answer Date Recorded What is your housing situation today? I have deanne naga 10/20/[address] you li [...] Orientation Straight 08/06/2022 10 :39 AM EDT documented as of this encounter Plan of Treatment Upcoming Encounters Date Type Department Care Team (Late st Contact Info) Description 12/01/2024 11:30 AM EST Office Visit [facility] [address] [place] [phone] Hanny Soto MD [address] [place] [phone] 12/15/2024 10:30 AM EDT Office Visit [address] [address] Hanny Soto MD [address] [place], [place] [phone] documented as of this encounter Procedures Procedure Name Priority Date/Time Associated Diagnosis Comments HIGH SENSITIVITY TROPONIN I Routine 10/20/2024 6:33 PM EST XR FINGERS 2+ VIEWS RIGHT Routine 10/20/2024 6:09 PM EST HIGH SENSITIVITY TROPONIN I Routine 10/20/2024 4:22 PM EST CBC WITH AUTO DIFFERENTIAL Routine 10/20/2024 4:22 PM EST COMPREHENSIVE METABOLIC PANEL Routine 10/20/2024 4:22 PM EST documented in this encounter Results * High Sensitivity Troponin I (10/20/2024 6:33 PM EST) TROPONIN I HIGH SENSITIVITY 24.0 <3.5 - 35.0 ng/L [facility] Comment:The Mckeon high sens itivity Troponin-I results should beused in conjunction with other diagnostic information suchas ECG, clinical observations and information, and patientsymptoms to aid in the diagnosis of AR. 10/20/2024 6:33 PM EST 10/20/2024 6:37 PM EST us Generic External Data Provider LAB BLOOD ORDERAB LES Final Result [facility] [address] [place] [address] [phone] * XR Fingers 2+ Views Right (10/20/2024 6:09 PM EST) Anatomical Region Laterality Modality Upper Extremities, Fingers Right Radio graphic Imaging 10/20/2024 6:09 PM EST Narrative 10/20/2024 6:12 PM EST ? [facility] ?[address] ?[place] [address] ?XRay Report ? Signed ? Patient: Medhat Gabriel,Max Alex ?MR# ?? : [id number] ? : 1975 ?Acct:[id number] ? Age/Sex: 49 / M ?ADM Date: 10/20/24 ? Loc: HO.ED ? Attending Dr: ? Ordering Physician: Aminata Trevino CNP ?? Date of Service: 10/20/24 ?? Procedure(s): XR finger RT min 2V ?? Accession Number(s): [id number] ? cc: Aminata Trevino SAFETY COMPANION; Hanny Soto ? CLINICAL HISTORY: 4th digit [...] DD/ 1809 ? TD/TT: 10/20/24 1809 ? Mobile Paint Specialist: ? Procedure Note Donotuseinterpreter, Image - 10/21/[address] [address] XRay Report Signed Patient: Max Luis OmarMR# : [id number] : 1975Acct:[id number] Age/Sex: 49 / MADM Date: 10/20/24 Loc: HO.ED Attending Dr: Ordering Physician: Aminata Trevino CNP Date of Service: 10/20/24 Procedure(s): XR finger RT min 2V Accession Number(s): [id number] cc: Aminata Trevino CNP; Hanny Soto CLINICAL [...] in OV> 10/20/241810 DD/ 08 TD/TT: 10/20/241808 Mobile Paint Specialist: [facility] External Provider IMG XR PROCEDURES Edited Result - Final * High Sensitivity Troponin I (10/20/2024 4:22 PM EST) TROPONIN I HIGH SENSITIVITY 20.7 <3.5 - 35.0 ng/L [facility] Comment:The Mckeon high sens itivity Troponin-I results should beused in conjunction with other diagnostic information suchas ECG, clinical observations and information, and patientsymptoms to aid in the diagnosis of AR. 10/20/2024 4:22 PM EST 10/20/2024 4:26 PM EST Generic External Data Provider LAB BLOOD ORDERAB LES Final Result [facility] [address] [place] [address] [phone] * (ABNORMAL) Comprehensive Metabolic Panel (10/20/2024 4:22 PM EST) Sodium 139 135 - 145 mmol/L [facility] Potassium 4.5 3.3 - 5.1 mmol/L [facility] Chloride 109(H) 96 - 108 mmol/L [facility] Carbon Dioxide 28 22 - 29 mmol/L [facility] Anion Gap 7(L) 12 - 20 [facility] Urea Nitrogen (BUN) 23(H) 9 - 16 mg/dL [facility] Creatinine, Serum 1.56(H) 0.5 - 1.4 mg/dL [facility] Creatinine Clr Calc Pharmacy 73.7 [facility] Comment:eGFR (calculated fro m the MDRD study equation) and eCrCl(calculated from the Cockcroft-Gault equation) are based ondifferent parameters and may not yield comparable results.If eCrCl result is absurd, please check patient'sheight/weight. Estimated Glomerular Filt Rate 48 [facility] Comment:Chronic Kidney Disea se: Estimated GFR < 60 mL/min/1.36u6Ptzhcx Kidney Disease: Estimated GFR < 15 mL/min/1.73m2 Glucose 92 60 - 115 mg/dL [facility] Calcium 9.0 8.4 - 10.2 mg/dL [facility] Bilirubin, Total 0.3 0.0 - 1.0 mg/dL [facility] Aspartate Amino Transferase 37 5 - 37 U/L [facility] Alanine Aminotransferase 65(H) 0 - 40 U/L [facility] Total Protein 7.1 6.5 - 8.0 g/dL [facility] Albumin Level 4.3 3.5 - 5.0 g/dL [facility] Alkaline Phosphatase 96 39 - 117 U/L [facility] 10/20/2024 4:22 PM EST 10/20/2024 4:26 PM EST us Generic External Data Provider LAB BLOOD ORDERAB LES Final Result [facility] [address] [place], [place] [phone] * (ABNORMAL) CBC auto differential (10/20/2024 4:22 PM EST) White Blood Count 8.8 4.8 - 10.8 X10*3/uL [facility] Red Blood Count 5.51 4.60 - 5.80 X10*6/uL [facility] Hemoglobin 16.5 14.0 - 18.0 g/dl [facility] Hematocrit 48.0 42.0 - 52.0 % [facility] Mean Corpuscular Volume 87.1 80.0 - 98.0 fL [facility] Mean Corpuscular Hemoglobin 29.9 27.0 - 33.0 pg [facility] Mean Corpuscular HGB Conc 34.4 31.0 - 36.0 g/dl [facility] Red Cell Distribution Width 13.6 11.0 - 16.0 % [facility] Platelet Count 161 160 - 400 X10*3/uL [facility] Mean Platelet Volume 12.1 9.4 - 12.4 fL [facility] Neutrophils Percent Auto 67.0 45 - 73 % [facility] Imm Gran Pct Auto 0.6(H) 0.0 - 0.4 % [facility] Lymphocytes Percent Auto 21.4 20 - 40 % [facility] Monocytes Percent Auto 8.4 2 - 11 % [facility] Eosinophils Percent Auto 1.8 0 - 4 % [facility] Basophils Percent Auto 0.8 0 - 2 % [facility] NRBC Pct Auto 0.0 0.0 - 0.2 /100WBC [facility] Neutrophils Absolute Auto 5.9 2.0 - 8.3 x10*3/uL [facility] Imm Gran Abs Auto 0.05(H) 0.00 - 0.03 X10*3/uL [facility] Lymphocytes Absolute Auto 1.9 1.2 - 4.9 X10*3/uL [facility] Monocytes Absolute Auto 0.7 0.1 - 1.2 X10*3/uL [facility] Eosinophils Absolute Auto 0.2 0.0 - 0.4 X10*3/uL [facility] Basophils Absolute Auto 0.1 0.0 - 0.2 X10*3/uL [facility] NRBC Abs Auto 0.000 0.0 - 0.012 X10*3/uL [facility] 10/20/2024 4:22 PM EST 10/20/2024 4:26 PM EST us Generic External Data Provider LAB BLOOD ORDERAB LES Final Result Performing Organization Address City/State/[facility] Co de Phone Number [facility] [address] [place] [address] [phone] documented in this encounter Visit Diagnoses Not on filedocumented in this encounter Additional Health Concerns Assessment Noted Time PHQ-9 Depression Total Score: 12 025 2:45 PM EST documented as of this encounter Care Teams Grommet Worker Relationship Specialty Start Date End Date Hanny Soto MD [address] [place] [address] PCP - General Family Medicine 07/13/22 documented as of this encounter
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
--- OUTSIDE RECORDS SUMMARY | 2024-10-30 16:47 | XMS_ITS | Encounter Summary ---
Author Organization [facility] Address [address] 7t [place] [address] Care Team Providers Care Extraction Operator Name Role Phone Hanny Soto MD Primary Care Provider [phone] Reason for Visit * Reason Comments Pre-visit Planning Pre-visit planning - unable to LVM all numbers are not working. Encounter Details Date Type Department Care Team ([facility] st Contact Info) Description 10/09/2024 Patient Outreach [facility] MEDICINE [address] [place], [place] [phone] Hanny Soto MD [address] [place], [place] [phone] Pre-visit Planning (Pre-visit planning -unable to LVM all numbers are not working.) Social History Tobacco Use Types Packs/Day Years Used Date Smoking Tobacco: Former Cigarettes Smokeless Tobacco: Never Alcohol Use Standard Drinks/Week Comments Not Currently 0 (1 standard drink = 0.6 oz pur e alcohol) Sex and Gender Information Value Date Recorded Sex Assigned at Male 08/06/2022 10:39 AM EDT Legal Sex Male 10:39 AM EDT Gender Identity Male 08/06/2022 10:39 AM EDT Sexual Orientation Straight 08/06/2022 10 :39 AM EDT documented as of this encounter Progress Notes * Danielle Salmon - 10/09/2024 11:30 AM EST OLIVER Villeda placed outbound call to patient to complete pre-visit planning. No answer at this time. Patient name and were not confirmed. CC was unable to leave a message. [phone] is not answering please try again later. [phone] sounded like a fax number and [phone] is not in service. documented in this encounter Plan of Treatment Upcoming Encounters Date Type Department Care Team (Late st Contact Info) Description 12/01/2024 11:30 AM EST Office Visit [address] [address] Hanny Soto MD [address] [place] [address] 12/15/2024 10:30 AM EDT Office Visit [address] [address] Hanny Soto MD [address] [place] [address] documented as of this encounter Visit Diagnoses Not on filedocumented in this encounter Care Teams Extraction Operator Relationship Specialty Start Date End Date Hanny Soto MD [address] [place] [address] PCP - General Family Medicine 07/13/22 documented as of this encounter
--- OUTSIDE RECORDS SUMMARY | 2024-10-30 16:47 | XMS_ITS | Encounter Summary ---
Author Organization [facility] Address [address] 7t [place] [address] Care Team Providers Care Wood Lathe Operator Name Role Phone Hanny Soto MD Primary Care Provider [phone] Reason for Visit * Reason Onset Date Comments Chart Prep 10/05/2024 Encounter Details Date Type Department Care Team ([facility] st Contact Info) Description 10/05/2024 Telephone [facility] MEDICINE [address] [place], [place] [phone] Hanny Soto MD [address] [place], [place] [phone] Chart Prep Social History Tobacco Use Types Packs/Day Years [...] AM EDT documented as of this encounter Miscellaneous Notes * Telephone Encounter - Sandy Joseph [place] - 10/05/2024 3:10 PM EST Chart Prep Labs: not applicable Images: not applicable Vaccines due: Covid Due, Hep A Due, Hep B Due, and Flu Due Referrals: Not Applicable Screenings: Colonoscopy , Anal PAP, and HIV screening Overdue care gaps: Sbirt, SDOH, PHQ-9, and Oral Health Chart prep for upcoming appt with Dr.Esparza colvin. LB\ documented in this encounter Plan of Treatment Upcoming Encounters Date Type Department Care Team (Late st Contact Info) Description 12/01/2024 11:30 AM EST Office Visit [address] [address] Hanny Soto MD [address] [place] [phone] 12/15/2024 10:30 AM EDT Office Visit [address] [address] Hanny Soto MD [address] [place] [phone] documented as of this encounter Visit Diagnoses Not on filedocumented in this encounter Care Teams Wood Lathe Operator Relationship Specialty Start Date End Date Hanny Soto MD [address] [place] [address] PCP - General Family Medicine 07/13/22 documented as of this encounter
--- OUTSIDE RECORDS SUMMARY | 2024-10-30 16:47 | XMS_ITS | Patient Health Record ---
Author Organization [facility] Address [address] [place], [place] [phone] Care Team Providers Care Digital Asset Manager Name Role Phone [facility] Primary Care Provider Aixa Schmitz Unavailable [phone] Jane Patton Unavailable [phone] Reason For Referral No Information Encounters Encounter Location Date Provider Diagnosis [facility] [address] [place] [phone] 05/06/[address] [facility] [address] [place], [place] [phone] 05/06/2024 Jane Patton Plan Of Treatment No Information Insurance Providers Payer Name Payer Address Payer Phone Subscriber Number Group Number Insured Name Patient Relationship to Insured Coverage Start Date Coverage End Date [place] C3 [address] [place], [place] [id number] Max Luis Self - patient is the insured
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
--- OUTSIDE RECORDS SUMMARY | 2024-10-30 16:47 | XMS_ITS ---
Author Organization [facility] Address [address], [place] [phone] Care Team Providers Care Postulant Name Role Phone [facility] Primary Care Provider Aixa Schmitz Unavailable Jane Patton Unavailable [phone] REASON FOR VISIT Apply for [employer] Insurance Encounters Encounter Location Date Provider Diagnosis [facility] [address], [place] [phone] 05/06/2024 Jane Patton Plan Of Treatment No Information Progress Notes * Max STRINGER EdisonarDOB :1975 (49 yo M)Acc No.[id number]:05/06/2024 Case Management New Patient:?Jomar Stringer Provider:?Jane Patton :1975???Age:49 Y???Sex:Male Rishabh e:05/06/2024 Address:[address] [place], [place] [phone] Pcp:[facility] Subjective: * Chief Complaints: * ???1. Apply for [place] [employer]. * HPI: ???Social Service:?Action Taken?[employer]? [employer] paper application was completed with client and faxed over to Enrollment Center. 05/06/24 gd2.? Objective: Assessment: Plan: * Treatment: * Images: Billing Information: * Visit Code:? * Procedure Codes:? Care Plan Details* * Sign off status: Completed true * Provider:Kat Patton Date:?05/06/2024 Generated for Riley farrar/Yamileth/eTransmitting on:?10/30/2024 04:47 PM EST History and Physical Notes * HPI (History of Present Illness) Category Sub-Category Detail Notes Social Service Action Taken [facility] : [employer] [facility] p aper application was completed with client and faxed over to Enrollment Center. 05/06/24 gd2
--- OUTSIDE RECORDS SUMMARY | 2024-10-30 16:47 | XMS_ITS | Encounter Summary ---
Author Organization [facility] Address [address] 7[address] [place] [address] Care Team Providers Care Communication And Outreach Manager Name Role Phone Hanny Soto MD Primary Care Provider [phone] Encounter Details Date Type Department Care Team (Latest Contact Info) Description 10/20/2024 Travel Social History Tobacco Use Types Packs/Day Years [...] Description 12/01/2024 11:30 AM EST Office Visit [facility] MEDICINE [address] [place] [address] Hanny Soto MD [address] [place] [address] 12/15/2024 10:30 AM EDT Office Visit [address] [address] Hanny Soto MD [address] [place] [address] documented as of this encounter Visit Diagnoses Not on filedocumented in this encounter Additional Health Concerns Assessment Noted Time PHQ-9 Depression Total Score: 12 025 2:45 PM EST documented as of this encounter Care Teams Communication And Outreach Manager Relationship Specialty Start Date End Date Hanny Soto MD [address] [place] [address] PCP - General Family Medicine 07/13/22 documented as of this encounter
--- OUTSIDE RECORDS SUMMARY | 2024-10-30 16:48 | XMS_ITS ---
Author Organization [facility] Address [address] [place] [phone] Care Team Providers Care Strap Cutter Name Role Phone [facility] Primary Care Provider Jenifer vailable Aixa Monet Unavailable Encounters Encounter Location Date Provider Diagnosis [facility] [address] [place] [phone] 05/06/2024 Aixa Monet Plan Of Treatment No Information Progress Notes * Max VELEZOB:1974 (49 yo M)Acc No.[id number]:05/06/2024 Case Management Patient:?VelezMax Provider:?Aixa Monet :1975???Age:49 Y???Sex:Male Rishabh e:05/06/2024 Address:[address] [place], [place] [phone] Pcp:[facility] Subjective: * Chief Complaints: * ??? * HPI: ???Social Service:?Date of encounter?05/06/2024.?Referral Source?walk-in, self.?Interpretation for medical provider?Intake.?Advocacy?none.?Follow-up Required:?yes.?Pt comprehension?Pt agrees with plan, Patient understood process and assisted with process.?Action taken (old)?form completion, Items given to client, item obtained, Letter given to patient after photo copy made.? * Medical History:? Objective: Assessment: Plan: * Treatment: * Images: Billing Information: * Visit Code:? * Procedure Codes:? Care Plan Details* * Sign off status: Completed true * Provider:?Aixa Monet Date:? Generated for Riley farrar/Yamileth/Vincenzo on:?10/30/2024 04:47 PM EST History and Physical Notes * HPI (History of Present Illness) Category Sub-Category Detail Notes Social Service Referral Source walk-in, self Interpretation for medical provider Inta ke Action taken (old) form completion, Ite ms given to client, item obtained, Letter given to patient after photo copy made Advocacy none Follow-up Required: yes Pt comprehension Pt agrees with plan, Patient understood process and assisted with process Date of encounter 05/06/2024
[2024-10-30] MEDS: Diphth,Pertus(ACell),Tet Adult 0.5 ML SYRINGE IM (16:51)
[2024-10-30 16:54] VITALS: BP 180/119; PULSE 69; RESP 20; TEMP 36.9; O2SAT 98
[2024-10-30] MEDS: Lidocaine HCl 1 % MPF 5 ML VIAL INFILTRATI (17:34)
[2024-10-30 17:55] VITALS: BP 180/119; PULSE 69; RESP 20; TEMP 36.9; O2SAT 98
[2024-10-30] MEDS: Bacitracin Oint 0.9 GM PACKET 1 APPL TOPICAL (17:55)
== END 2024-10-30 17:56 | disposition home or self-care (01) ==
PROVIDERS: Emergency Provider Emergency Medicine Emergency Medical Services; PCP General Practice
DX: S01.21XA Laceration without foreign body of nose, initial encounter (principal); R51.9 Headache, unspecified; I25.10 Atherosclerotic heart disease of native coronary artery without angina pectoris; F17.210 Nicotine dependence, cigarettes, uncomplicated; Y29.XXXA Contact with blunt object, undetermined intent, initial encounter; Y93.89 Activity, other specified; Y92.89 Other specified places as the place of occurrence of the external cause; Y99.8 Other external cause status; Z23 Encounter for immunization
CPT/HCPCS: 12051; 70450; 70486; 90471; 90715; 99284; J2003

== ENCOUNTER → 2024-10-30 12:55 | Outpatient (BNV) | payer MEDICAID, SELFPAY | PROVIDERS: PCP General Practice; Visit Provider Radiology Diagnostic Radiology | DX: S01.21XA Laceration without foreign body of nose, initial encounter (principal) | CPT/HCPCS: 70450; 70486 ==

== ENCOUNTER 2024-11-09 08:11 | Emergency (ER) | payer MEDICAID, SELFPAY ==
[2024-11-09] VITALS (7 sets, daily range): BP systolic 158–233; BP diastolic 94–155; PULSE 60–89; RESP 16–20; TEMP 36.7–37.3; O2SAT 96–99; BMI 34.3
--- NOTE | ~2024-11-09 | CT_ITS ---
EXAMINATION: CT HEAD WITHOUT CONTRAST CLINICAL INFORMATION: Hypertension COMPARISON: October 30/2025 TECHNIQUE: Contiguous axial imaging was performed from the skull base to vertex without intravenous administration of contrast. This CT examination was performed using dose optimization techniques as appropriate, variously including the following: *Automated exposure control *Adjustment of mA and/or kV according to patient size (this includes techniques or standardized protocols for targeted exams where dose is matched to indication/reason for exam; i.e. extremities or head) *Use of iterative reconstruction technique DLP: 752.43 mGy-cm FINDINGS: No acute intracranial hemorrhage, mass effect, midline shift, hydrocephalus or herniation. Pinedo-white matter differentiation is normal. Lung prominence of the extra-axial CSF spaces along the frontal convexities. Osteopenia cranial fossa contents demonstrated no acute intracranial hemorrhage or mass effect. No air-fluid levels in the included paranasal sinuses. Tympanic cavities and mastoid air cells are aerated. CT/CT head/brain wo IV con IMPRESSION: No acute intracranial hemorrhage. Stable brain. Electronically signed by: Chandrakant Hughes MD 11/09/2024 02:10 PM [facility]
--- OUTSIDE RECORDS SUMMARY | 2024-11-09 08:40 | XMS_ITS | Encounter Summary ---
Author Organization [facility] Address [address] 7[address] [place] [address] Care Team Providers Care Electrical Maintenance Worker Name Role Phone Hanny Soto MD Primary Care Provider [phone] Encounter Details Date Type Department Care Team [...] Description 12/01/2024 11:30 AM EST Office Visit [facility] MEDICINE [address] [place] [address] Hanny Soto MD [address] [place] [address] 12/15/2024 10:30 AM EDT Office Visit [address] [address] Hanny Soto MD [address] [place] [address] documented as of this encounter Visit Diagnoses Not on filedocumented in this encounter Additional Health Concerns Assessment Noted Time PHQ-9 Depression Total Score: 12 025 2:45 PM EST documented as of this encounter Care Teams Electrical Maintenance Worker Relationship Specialty Start Date End Date Hanny Soto MD [address] [place] [address] PCP - General Family Medicine 07/13/22 documented as of this encounter
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
--- OUTSIDE RECORDS SUMMARY | 2024-11-09 08:40 | XMS_ITS | Encounter Summary ---
Author Organization [employer] [facility] Address [address] [facility] 7t [place] [address] Care Team Providers Care Property Claim Rep Name Role Phone Hanny Soto MD Primary Care Provider [phone] Reason for Visit * Reason Onset Date Comments Nurse Triage 05/07/2024 Encounter Details Date Type Department Care Team ([facility] st Contact Info) Description 05/07/2024 Telephone [facility] [address] [place], [place] [phone] Hanny Soto MD [address] [place], [place] [phone] Nurse Triage Social History Tobacco Use Types [...] caller accepted this outcome Please contract at [phone] French documented in this encounter Plan of Treatment Upcoming Encounters Date Type Department Care Team (Late st Contact Info) Description 12/01/2024 11:30 AM EST Office Visit [facility] [address] [place] [phone] Hanny Soto MD [address] [place] [phone] 12/15/2024 10:30 AM EDT Office Visit [facility] [address] [place] [phone] Hanny Soto MD [address] [place] [phone] documented as of this encounter Visit Diagnoses Not on filedocumented in this encounter Care Teams Property Claim Rep Relationship Specialty Start Date End Date Hanny Soto MD [address] [place] [address] PCP - General Family Medicine 07/13/22 documented as of this encounter
--- OUTSIDE RECORDS SUMMARY | 2024-11-09 08:41 | XMS_ITS | Clinical Summary ---
Author Organization [employer] Address [address] [facility] [address] [place] [address] Care Team Providers Care Cafe Worker Name Role Phone Hanny Soto MD Primary Care Provider [phone] Allergies No known active allergies Medications simvastatin [...] plan Transported via ambulance, signed off to [facility] ER Encounters Date Type Department Care Team Description 11/02/[address] [facility] [address] [place] [address] Hanny Soto MD ER Follow-up 10/20/2024 2:30 PM EST Office Visit [facility] [address] [place] [phone] Jose Castellon MD Hypertensive urgency (Primary Dx) 10/20/2024 Orders Only GENERIC EXTERNAL DATA DEPARTMENT Provider, Generic External Data 10/20/2024 Travel 10/09/[address] [facility] [address] [place] [address] Hanny Soto MD Pre-visit Planning (Pre-visit planning -unable to LVM all numbers are not working.) 10/05/[address] [facility] [address] [place] [address] Hanny Soto MD Chart Prep from Last 3 Months Immunizations Name Administration [...] 12/01/2024 11:30 AM EST Office Visit [facility] [address] [place] [address] Hanny Soto MD [address] [place], [place] [phone] 12/15/2024 10:30 AM EDT Office Visit [facility] [address], [place] [phone] Hanny Soto MD [address] [place] [address] Health Maintenance Due Date Last Done Comments Anal Pap 1977 CT Colonography 1977 Colonoscopy 1977 Colorectal Cancer Screening 1977 Dental Oral Exam 1977 Dental Prophylaxis 1977 Dental X-Ray: Bitewings 1977 FIT DNA/Cologuard 1977 FIT 1977 FOBT 1977 HIV Screening 1977 Lipid Panel 1977 Sigmoidoscopy 1977 Family Planning (PISQ) 1992 Hepatitis C Screening 1995 Hepatitis A Vaccines (1 of 2 - Risk 2-dose series) 1996 Hepatitis B Vaccines (1 of 3 - 19+ 3-dose series) 1996 Pneumococcal Vaccine: Pediatrics (0 to 5 Years) and At-Risk Patients (6 to 49) Years) (1 of 2 - PCV) 1996 COVID-19 Vaccine (3 - 2023-2 5 season) 2024 09/22/2021, 02/22/2021 [...] Recently Relevant to Health Maintenance Results * CT Sinus Facial Bones w/o Contrast (10/30/2024 1:05 PM EST) Anatomical Region Laterality Modality Computed Tomogra phy 10/30/2024 1:05 PM EST Narrative 10/30/2024 2:01 PM EST ? [facility] ?[address] ?[place] [address] ? CT Scan Report ? Signed ? Patient: Meléndez Gabriel,Max Alex ?MR# ?? : [id number] ? : 1975 ?Acct:[id number] ? Age/Sex: 49 / M ?ADM Date: 10/30/24 ? Loc: HO.ED ? Attending Dr: ? Ordering Physician: Lizeth Roberts [employer] ?? Date of Service: 10/30/24 ?? Procedure(s): CT facial bones wo IV con ?? Accession Number(s): [id number] ? cc: Hanny Soto; Lizeth Roberts [employer] ? Report Number: ?? [id number]: Total DLP = ??466.56 mGy-cm ?? EXAMINATION: [...] by Eloy Boswell MD in OV> ?10/30/24 1358 ? DD/ 1305 ? TD/TT: 10/30/24 1333 ? [employer] Director: ? Procedure Note Jeni, Image - 11/02/[address] [address] [address] Scan Report Signed Patient: Max Luis OmarMR# : [id number] : 1975Acct:[id number] Age/Sex: 49 / MADM Date: 10/30/24 Loc: HO.ED Attending Dr: Ordering Physician: Lizeth Roberts NP Date of Service: 10/30/24 Procedure(s): CT facial bones wo IV con Accession Number(s): [id number] cc: Hanny Soto; Lizeth Roberts NP Report Number: [id number]: Total DLP = 466.56 mGy-cm EXAMINATION: CT [...] Eloy Boswell MD 10/30/2024 01:58 PM EST Dictated By: Eloy Boswell MD Signed By: <Electronically signed by Eloy Boswell MD in OV> 10/30/24 1358 DD/ 1305 TD/TT: 10/30/24 1333 [employer] Director: [facility] External Provider IMG CT PROCEDURES Edited Result - Final * CT Head w/o Contrast (10/30/2024 12:55 PM EST) Anatomical Region Laterality Modality Head, Neck Computed Tomogra phy 10/30/2024 12:5 5 PM EST Narrative 10/30/2024 1:58 PM EST ? [facility] ?[address] ?[place] [address] ? CT Scan Report ? Signed ? Patient: Meléndez Gabriel,Max Johnson ?MR# ?? : [id number] ? : 1975 ?Acct:[id number] ? Age/Sex: 49 / M ?ADM Date: 10/30/24 ? Loc: HO.ED ? Attending Dr: ? Ordering Physician: Lizeth Roberts NP ?? Date of Service: 10/30/24 ?? Procedure(s): CT head/brain wo IV con ?? Accession Number(s): [id number] ? cc: Hanny Soto; Lizeth Roberts NP ? Report Number: ?? [id number]: Total DLP = ??735.40 mGy-cm ?? EXAMINATION: [...] by Eloy Boswell MD in OV> ?10/30/24 [facility] ? DD/ 1255 ? TD/TT: 10/30/24 1333 ? State [employer] Director: ? Procedure Note Eric Ngo - 11/02/[address] [address] [address] Scan Report Signed Patient: Max Luis OmarMR# : [id number] : 1975Acct:[id number] Age/Sex: 49 / MADM Date: 10/30/24 Loc: HO.ED Attending Dr: Ordering Physician: Lizeth Roberts NP Date of Service: 10/30/24 Procedure(s): CT head/brain wo IV con Accession Number(s): [id number] cc: Hanny Soto; Lizeth Roberts NP Report Number: [id number]: Total DLP = 735.40 mGy-cm EXAMINATION: CT [...] 10/30/24 1355 DD/ 1255 TD/TT: 10/30/24 1333 [employer] Director: [facility] External Provider IMG CT PROCEDURES Edited Result - Final * High Sensitivity Troponin I (10/20/2024 6:33 PM EST) Only the most recent of2 resultswithin the time period is included. TROPONIN I HIGH SENSITIVITY 24.0 <3.5 - 35.0 ng/L [facility] Comment:The Mckeon high sens itivity Troponin-I results should beused in conjunction with other diagnostic information suchas ECG, clinical observations and information, and patientsymptoms to aid in the diagnosis of MN. 10/20/2024 6:33 PM EST 10/20/2024 6:37 PM EST Generic External Data Provider LAB BLOOD ORDERAB LES Final Result [facility] [address] [place] [phone] * XR Fingers 2+ Views Right (10/20/2024 6:09 PM EST) Anatomical Region Laterality Modality Upper Extremities, Fingers Right Radio graphic Imaging 10/20/2024 6:09 PM EST Narrative 10/20/2024 6:12 PM EST ? [facility] ?[address] ?[place] [address] ?XRay Report ? Signed ? Patient: Meléndez Gabriel,Max Alex ?MR# ?? : [id number] ? : 1975 ?Acct:[id number] ? Age/Sex: 49 / M ?ADM Date: 10/20/24 ? Loc: HO.ED ? Attending Dr: ? Ordering Physician: Aminata Trevino CNP ?? Date of Service: 10/20/24 ?? Procedure(s): XR finger RT min 2V ?? Accession Number(s): [id number] ? cc: Aminata Trevino CNP; Hanny Soto [...] in OV> ? 10/20/24 1811 ? DD/ 08 ? TD/TT: 10/20/241808 ? State [employer] Director: ? Procedure Note Eric Ngo - 10/21/2024 [place] [address] XRay Report Signed Patient: Mxa Luis OmarMR# : [id number] : 1975Acct:[id number] Age/Sex: 49 / MADM Date: 10/20/24 Loc: HO.ED Attending Dr: Ordering Physician: Aminata Trevino CNP Date of Service: 10/20/24 Procedure(s): XR finger RT min 2V Accession Number(s): [id number] cc: Aminata Trevino CNP; Hanny Soto CLINICAL HISTORY: 4th digit crush injury 3 view right 4th digit Comparison: None Findings: No fractures or dislocations. No significant arthritic change. No erosions. No radiopaque foreign body. IMPRESSION: 1. No acute findings This document has been electronically signed by: Jennie Villareal MD on 10/20/2024 18:09:50 Dictated By: Jennie Villareal MD Signed By: <Electronically signed by eJnnie Villareal MD in OV> 10/20/241810 DD/ 08 TD/TT: 10/20/241808 [employer] Director: us [facility] External Provider IMG XR PROCEDURES Edited Result - Final * (ABNORMAL) CBC auto differential (10/20/2024 4:22 PM EST) White Blood Count 8.8 4.8 - 10.8 X10*3/uL [facility] Red Blood Count 5.51 4.60 - 5.80 X10*6/uL [facility] Hemoglobin 16.5 14.0 - 18.0 g/dl [facility] Hematocrit 48.0 42.0 - 52.0 % [facility] Mean Corpuscular Volume 87.1 80.0 - 98.0 fL [facility] Mean Corpuscular Hemoglobin 29.9 27.0 - 33.0 pg [facility] Mean Corpuscular HGB Conc 34.4 31.0 - 36.0 g/dl [facility] Red Cell Distribution Width 13.6 11.0 - 16.0 % [facility] Platelet Count 161 160 - 400 X10*3/uL [facility] Mean Platelet Volume 12.1 9.4 - 12.4 fL [facility] Neutrophils Percent Auto 67.0 45 - 73 % [facility] Imm Gran Pct Auto 0.6(H) 0.0 - 0.4 % [facility] Lymphocytes Percent Auto 21.4 20 - 40 % [facility] Monocytes Percent Auto 8.4 2 - 11 % [facility] Eosinophils Percent Auto 1.8 0 - 4 % [facility] Basophils Percent Auto 0.8 0 - 2 % [facility] NRBC Pct Auto 0.0 0.0 - 0.2 /100WBC [facility] Neutrophils Absolute Auto 5.9 2.0 - 8.3 x10*3/uL [facility] Imm Gran Abs Auto 0.05(H) 0.00 - 0.03 X10*3/uL [facility] Lymphocytes Absolute Auto 1.9 1.2 - 4.9 X10*3/uL [facility] Monocytes Absolute Auto 0.7 0.1 - 1.2 X10*3/uL [facility] Eosinophils Absolute Auto 0.2 0.0 - 0.4 X10*3/uL [facility] Basophils Absolute Auto 0.1 0.0 - 0.2 X10*3/uL [facility] NRBC Abs Auto 0.000 0.0 - 0.012 X10*3/uL [facility] 10/20/2024 4:22 PM EST 10/20/2024 4:26 PM EST us Generic External Data Provider LAB BLOOD ORDERAB LES Final Result [facility] [address] [place] [phone] [phone] * (ABNORMAL) Comprehensive Metabolic Panel (10/20/2024 4:22 PM EST) Sodium 139 135 - 145 mmol/L [facility] Potassium 4.5 3.3 - 5.1 mmol/L [facility] Chloride 109(H) 96 - 108 mmol/L [facility] Carbon Dioxide 28 22 - 29 mmol/L [facility] Anion Gap 7(L) 12 - 20 [facility] Urea Nitrogen (BUN) 23(H) 9 - 16 mg/dL [facility] Creatinine, Serum 1.56(H) 0.5 - 1.4 mg/dL [facility] Creatinine Clr Calc Pharmacy 73.7 [facility] Comment:eGFR (calculated fro m the MDRD study equation) and eCrCl(calculated from the Cockcroft-Gault equation) are based ondifferent parameters and may not yield comparable results.If eCrCl result is absurd, please check patient'sheight/weight. Estimated Glomerular Filt Rate 48 [facility] Comment:Chronic Kidney Disea se: Estimated GFR < 60 mL/min/[id number] Kidney Disease: Estimated GFR < 15 mL/min/1.73m2 Glucose 92 60 - 115 mg/dL [facility] Calcium 9.0 8.4 - 10.2 mg/dL [facility] Bilirubin, Total 0.3 0.0 - 1.0 mg/dL [facility] Aspartate Amino Transferase 37 5 - 37 U/L [facility] Alanine Aminotransferase 65(H) 0 - 40 U/L [facility] Total Protein 7.1 6.5 - 8.0 g/dL [facility] Albumin Level 4.3 3.5 - 5.0 g/dL [facility] Alkaline Phosphatase 96 39 - 117 U/L [facility] 10/20/2024 4:22 PM EST 10/20/2024 4:26 PM EST us Generic External Data Provider LAB BLOOD ORDERAB LES Final Result [facility] [address] [place] [address] [phone] from Last [address] [place] [address] Care Teams Cafe Worker Relationship Specialty Start Date End Date Hanny Soto MD [address] [place] [phone] PCP - General Family Medicine 07/13/22
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
[2024-11-09] MEDS: Metoprolol Tartrate 50 MG TABLET PO (10:00)
[2024-11-09] MEDS: amLODIPine Besylate 10 MG TABLET PO (10:00)
--- NOTE | 2024-11-09 10:06 | ED.GENADULT ---
HPI - General Adult General Chief complaint: Skin/Abscess/Foreign Body Stated complaint: suture removal Time Seen by Provider: 11/09/24 09:18 Source: patient Mode of arrival: ambulatory Limitations: no limitations History of Present Illness ED Provider: Kemal Kelly HPI narrative: 49-year-old male with past medical history of high blood pressure presents to ED for suture removal from nose. Patient's suture repair here in the ED. patient denies any other headache, nausea, vomiting, redness, fever, chills, slurred speech, paralysis of extremities, loss of vision, any other life concerning threatening symptoms. Related Data Home Medications ?Medication ?Instructions ?Recorded ?Confirmed amlodipine 5 mg tablet 5 mg PO DAILY 01/29/23 01/29/23 aspirin 81 mg tablet,delayed 81 mg PO DAILY 01/29/23 01/29/23 release (Adult Aspirin Regimen) meloxicam 7.5 mg tablet 7.5 mg PO DAILY knee pain 01/29/23 01/29/23 simvastatin 20 mg tablet 20 mg PO QPM cholesterol 01/29/23 01/29/23 Previous Rx's ?Medication ?Instructions ?Recorded metoprolol succinate 25 mg 25 mg PO DAILY #30 tabs 06/22/21 tablet,extended release 24 hr (Toprol XL) diphenhydramine HCl 25 mg capsule 25 mg PO TID PRN itchiness 10 days 07/07/21 (Benadryl) #30 caps metoprolol succinate 50 mg 50 mg PO DAILY #30 tabs 07/20/21 tablet,extended release 24 hr (Toprol XL) amlodipine 10 mg tablet 10 mg PO DAILY #30 tabs 10/20/24 metoprolol succinate 50 mg 50 mg PO DAILY #30 tabs 10/20/24 tablet,extended release 24 hr Allergies Allergy/AdvReac Type Severity Reaction Status Date / Time No Known Allergies Allergy Verified 11/09/24 08:15 Review of Systems Review of Systems: Suture removed Yes all other systems are reviewed and are negative [facility] Past Medical History Medical History Myocardial infarction HTN (hypertension) Surgical History H/O heart artery stent Family History Family History (Updated 01/29/23 @ 13:03 by Aminata Calabrese) Mother No problems noted. Father HTN (hypertension) Social History Social History (Updated 06/22/21 @ 09:28 by Marlene Fernandez DO) Unable to assess alcohol history related to: Unknown Patient Tobacco Use Status: Current everyday Tobacco user Physical Exam ED Vital Signs: Vital Signs - 24 hr 11/09/24 08:14 11/09/24 09:34 11/09/24 10:00 Temperature 99.1 F 98.3 F Pulse Rate 89 78 78 Respiratory Rate 18 16 Blood Pressure 233/134 H 228/155 H 228/155 H Pulse Oximetry 96 97 Oxygen Delivery Method Room Air Room Air 11/09/24 10:00 11/09/24 11:03 11/09/24 11:32 Temperature 98.0 F Pulse Rate 62 Respiratory Rate 20 Blood Pressure 228/155 H 203/135 H 203/135 H Pulse Oximetry 98 Oxygen Delivery Method Room Air 11/09/24 12:00 11/09/24 15:41 Temperature 98.2 F 98.1 F Pulse Rate 60 62 Respiratory Rate 18 18 Blood Pressure 160/103 H 158/94 H Pulse Oximetry 99 98 Oxygen Delivery Method Room Air Room Air BMI result Body Mass Index 34.3 Const General: cooperative, healthy appearing, comfortable, no acute distress, well developed, alert, awake and Physically active Orientation/consciousness: patient oriented x3 HENMT Head: Yes normal to inspection, Yes No palpable skull fracture present, Yes normocephalic and Yes atraumatic Head images: 1. Wound healthy and healing. Negative for erythema, pus discharge or foul odor. As per patient has some sutures fell off due to them being absorbable. Eyes General: appearance normal, both eyes and all related structures Neck Neck: Yes normal visual inspection, Yes full ROM, Yes no lymphadenopathy, Yes no meningeal signs, Yes trachea midline, Yes supple, No anterior neck swelling and No tender Chest Chest palpation & inspection: normal inspection of the chest and normal palpation of entire chest wall Resp Effort & Inspection: normal respiratory effort and able to speak in complete sentences Auscultation: clear to auscultation bilaterally Cardio Jugular venous distension: no JVD Heart sounds: S1 normal heart sound present and S2 normal heart sound present GI Inspection: Yes normal to inspection Palpation (GI): Soft to palpation, not firm, nontender, no guarding and not rigid General: Yes no CVA tenderness Back/Spine/Pelvis Back: no CVA tenderness and No back tenderness Skin General skin exam: no rashes or lesions noted, elasticity normal and turgor normal Neuro General: patient oriented x3, gait normal, tone normal, moves all extremities, Normal light touch and pain sensation, no meningeal signs, no focal motor deficits, CN's II-XI intact bilaterally and normal sensation to monofilament Extrem General: Yes normal to inspection, Yes full ROM and Yes capillary refill normal Psych Appearance: grossly normal, well kempt and not disheveled Medications Administered Discontinued Medications Generic Name Dose Route Start Last Admin Trade Name Korin PRN Reason Stop Dose Admin Amlodipine Besylate 10 mg 11/09/24 09:49 11/09/24 10:00 Amlodipine Besylate 10 Mg Tablet PO 11/09/24 09:50 10 mg ONCE ONE Administration Protocol Clonidine HCl 0.2 mg 11/09/24 11:15 11/09/24 11:32 Clonidine Hcl 0.2 Mg Tablet PO 11/09/24 11:16 0.2 mg ONCE ONE Administration Protocol Metoprolol Tartrate 50 mg 11/09/24 09:49 11/09/24 10:00 Metoprolol Tartrate 50 Mg Tablet PO 11/09/24 09:50 50 mg ONCE ONE Administration Protocol Medical Decision Making Medical Decision Making MDM Narrative: 49-year-old male presents to ED for suture removal. Wound was cleaned. Patient states four of the sutures already fell out there were 12 in total. 8 sutures removed. Patient found to be hypertensive multiple times of systolic over 200 and diastolic over 100. Patient states he did not take his meds this morning. Patient is asymptomatic denies any headache, nausea, vomiting, dizziness, slurred speech, patient is droop, any other stroke-like symptoms. NIH score is 0. Patient is agreeable only to take meds presentl in the ED which which oral metoprolol and amlodipine. Patient was informed of usually with elevated blood pressure there is concerning for hypertensive emergency which can cause brain heart and kidney issues. Patient is presently would like to hold off on EKG and labs and if blood pressure does not improve he will agreed to labs and EKG. Patient given metoprolol 50 add amlodipine 10 mg 11:13am: Patient's blood pressure still elevated 203/135. Patient is agreeable for labs EKG and IV medication. Will treat as hypertensive urgency. Presently patient is asymptomatic. clonidine oral ordered and if no improvement will do IV meds. 12:00pm: Patient's blood pressure improved. Head CT 2nd troponin pending 3;11pm: Chest CT scan normal. Second troponin pending. Patient presently asymptomatic. Patient is educated on being compliant with hypertensive medications. 3;28pm: Patient's 2nd troponin negative. Patient is educated on being compliant with blood pressure medications. Patient explained symptoms of stroke, kidney failure and heart damage. Patient explained labs showing chronic kidney disease you will need to follow up with his primary care provider to get better control of his blood pressure. Presently not having stroke VT or acute kidney injury. Differential Diagnosis Differential Diagnoses: The differential diagnosis associated with the presentation includes (Hypertensive urgency, emergency) Admission/Observation Consideration of admission/observation: Escalation of care including admission/observation considered Lab Data MDM Lab Attestation statement: I reviewed the patient's lab results. 11/09/24 11:32 11/09/24 11:32 Labs: Lab Results 11/09/24 11/09/24 Range/Units 11:32 14:45 WBC 9.0 (4.8-10.8) X10*3/uL RBC 5.42 (4.60-5.80) X10*6/uL Hgb 16.3 (14.0-18.0) g/dl Hct 47.4 (42.0-52.0) % MCV 87.5 (80.0-98.0) fL MCH 30.1 (27.0-33.0) pg MCHC 34.4 (31.0-36.0) g/dl RDW 13.3 (11.0-16.0) % Plt Count 172 (160-400) X10*3/uL MPV 11.9 (9.4-12.4) fL Immature Gran % (Auto) 0.4 (0.0-0.4) % Neut % (Auto) 73.7 H (45-73) % Lymph % (Auto) 16.0 L (20-40) % Garfield % (Auto) 7.9 (2-11) % Eos % (Auto) 1.2 (0-4) % Baso % (Auto) 0.8 (0-2) % Lymph # (Auto) 1.4 (1.2-4.9) X10*3/uL Garfield # (Auto) 0.7 (0.1-1.2) X10*3/uL Eos # (Auto) 0.1 (0.0-0.4) X10*3/uL Baso # (Auto) 0.1 (0.0-0.2) X10*3/uL Abs Immat Gran (auto) 0.04 H (0.00-0.03) X10*3/uL Absolute Neuts (auto) 6.6 (2.0-8.3) x10*3/uL Absolute Nucleated RBC 0.000 (0.0-0.012) X10*3/uL Nucleated RBC % (auto) 0.0 (0.0-0.2) /100WBC PT 11.0 (10.9-12.4) SEC INR 0.9 (0.9-1.1) APTT 30.9 (26.0-36.8) SEC Sodium 140 (135-145) mmol/L Potassium 4.0 (3.3-5.1) mmol/L Chloride 108 (96-108) mmol/L Carbon Dioxide 27 (22-29) mmol/L Anion Gap 9 L (12-20) BUN 17 H (9-16) mg/dL Creatinine 1.45 H (0.5-1.4) mg/dL Estim Creat Clear Calc 80.0 Estimated GFR 52 Random Glucose 94 (60-115) mg/dL Calcium 8.8 (8.4-10.2) mg/dL Total Bilirubin 0.5 (0.0-1.0) mg/dL AST 24 (5-37) U/L ALT 44 H (0-40) U/L Alkaline Phosphatase 93 (39-117) U/L Troponin I High Sens 17.5 17.4 (<3.5-35.0) ng/L Total Protein 7.1 (6.5-8.0) g/dL Albumin 4.1 (3.5-5.0) g/dL Independent Interpretation I performed an independent interpretation of an: EKG (Negative STEMI) and CT Scan Radiology Impression Discussion of test interpretation with radiology: I have reviewed the radiologist's reading. Independent Historian Clinical information obtained from an independent historian. History obtained from or confirmed by: Other (Patient) Critical Care Time Critical Care Time Critical Care Time: Yes Total Critical Care Time: 60 Attestation: Elevated blood pressure over 200. Negative for any neuro symptoms. Metoprolol, amlodipine, clonidine given. EKG labs head CT scan ordered. Discharge Plan Discharge Clinical Impression: HTN (hypertension), Encounter for removal of sutures, Chronic kidney disease (CKD) Patient Disposition: Home, Self-Care Instructions: Chronic Kidney Disease (ED), Hypertension (ED), Stitches Removal (ED) Additional Instructions: You will need to follow-up with your primary care provider. Recommend being compliant with your high blood pressure medications. Your head CT scan came back normal, negative for signs of stroke. Your blood work came back negative for heart attack. Your labs did show you have chronic elevated creatinine. Return to the ED immediately for any chest pain, shortness of breath, headache, dizziness, slurred speech, facial droop, redness, fever, chills, loss of vision, or any other concerning symptoms Prescriptions: No Action metoprolol succinate [Toprol XL] 25 mg tablet extended release 24 hr 25 mg PO DAILY Qty: 30 3RF metoprolol succinate [Toprol XL] 50 mg tablet extended release 24 hr 50 mg PO DAILY Qty: 30 1RF diphenhydramine HCl [Benadryl] 25 mg capsule 25 mg PO TID PRN (Reason: itchiness) 10 Days Qty: 30 0RF amlodipine 10 mg tablet 10 mg PO DAILY Qty: 30 0RF metoprolol succinate 50 mg tablet extended release 24 hr 50 mg PO DAILY Qty: 30 0RF meloxicam 7.5 mg tablet 7.5 mg PO DAILY simvastatin 20 mg tablet 20 mg PO QPM amlodipine 5 mg tablet 5 mg PO DAILY aspirin [Adult Aspirin Regimen] 81 mg tablet,delayed release (DR/EC) 81 mg PO DAILY Stand Alone Forms: Work/School Release Interventions: ED Discharge Assessment Last Done: 11/09/24 15:41 Discharge Date/Time: 11/09/24 15:44 Print Language: Burkinan
--- NOTE | 2024-11-09 11:14 | ECG_ITS ---
Test Reason : HIGH BLOOD PRESSURE Blood Pressure : */* mmHG Vent. Rate : 61 BPM Atrial Rate : 61 BPM P-R Int : 184 ms QRS Dur : 94 ms QT Int : 402 ms P-R-T Axes : 46 7 -8 degrees QTcB Int : 404 ms Normal sinus rhythm Cannot rule out Anterior infarct , age undetermined Abnormal ECG When compared with ECG of 20-Oct-2024 16:18, No significant change was found Referred By: Kemal Kelly Electronically Signed By: Gurwinder Carver
[2024-11-09] MEDS: cloNIDine HCL 0.2 MG TABLET PO (11:32)
[2024-11-09 11:36] LABS: MANUAL DIFF FLAG NO
[2024-11-09 11:38] LABS: Basophils Absolute Auto 0.1 X10*3/uL (0.0-0.2); Basophils Percent Auto 0.8 % (0-2); Eosinophils Absolute Auto 0.1 X10*3/uL (0.0-0.4); Eosinophils Percent Auto 1.2 % (0-4); Hematocrit 47.4 % (42.0-52.0); Hemoglobin 16.3 g/dl (14.0-18.0); Imm Gran Abs Auto 0.04 X10*3/uL (0.00-0.03); Imm Gran Pct Auto 0.4 % (0.0-0.4); Lymphocytes Absolute Auto 1.4 X10*3/uL (1.2-4.9); Mean Corpuscular HGB Conc 34.4 g/dl (31.0-36.0); Mean Corpuscular Hemoglobin 30.1 pg (27.0-33.0); Mean Corpuscular Volume 87.5 fL (80.0-98.0); Mean Platelet Volume 11.9 fL (9.4-12.4); Monocytes Absolute Auto 0.7 X10*3/uL (0.1-1.2); Monocytes Percent Auto 7.9 % (2-11); Neutrophils Absolute Auto 6.6 x10*3/uL (2.0-8.3); Neutrophils Percent Auto 73.7 % (45-73); Platelet Count 172 X10*3/uL (160-400); Red Blood Count 5.42 X10*6/uL (4.60-5.80); Red Cell Distribution Width 13.3 % (11.0-16.0)
[2024-11-09 11:49] LABS: INTERNATIONAL NORM RATIO 0.9 (0.9-1.1)
[2024-11-09 11:52] LABS: Partial Thromboplastin Time 30.9 SEC (26.0-36.8)
[2024-11-09 11:56] LABS: Alanine Aminotransferase 44 U/L (0-40); Albumin Level 4.1 g/dL (3.5-5.0); Alkaline Phosphatase 93 U/L (39-117); Anion Gap 9 (12-20); Aspartate Amino Transferase 24 U/L (5-37); Bilirubin Total 0.5 mg/dL (0.0-1.0); Blood Urea Nitrogen 17 mg/dL (9-16); Calcium 8.8 mg/dL (8.4-10.2); Carbon Dioxide 27 mmol/L (22-29); Chloride 108 mmol/L (96-108); Estimated Glomerular Filt Rate 52; Glucose Random 94 mg/dL (60-115); Sodium 140 mmol/L (135-145); Total Protein 7.1 g/dL (6.5-8.0)
[2024-11-09 12:03] LABS: Troponin-I High Sensitivity 17.5 ng/L (<3.5-35.0)
[2024-11-09 15:16] LABS: Troponin-I High Sensitivity 17.4 ng/L (<3.5-35.0)
== END 2024-11-09 15:44 | disposition home or self-care (01) ==
PROVIDERS: Physician Assistant; Emergency Provider Emergency Medicine; PCP General Practice
DX: I12.9 Hypertensive chronic kidney disease with stage 1 through stage 4 chronic kidney disease, or unspecified chronic kidney disease (principal); N18.9 Chronic kidney disease, unspecified; R94.31 Abnormal electrocardiogram [ECG] [EKG]; F17.210 Nicotine dependence, cigarettes, uncomplicated; Z48.02 Encounter for removal of sutures; Z79.899 Other long term (current) drug therapy
CPT/HCPCS: 36415; 70450; 80053; 84484; 85025; 85610; 85730; 93005; 99284

== ENCOUNTER → 2024-11-09 11:14 | Outpatient (BNV) | payer MEDICAID, SELFPAY | PROVIDERS: Emergency Provider Emergency Medicine; PCP General Practice; Visit Provider Internal Medicine Cardiovascular Disease | DX: R94.31 Abnormal electrocardiogram [ECG] [EKG] (principal) | CPT/HCPCS: 93010 ==

== ENCOUNTER → 2024-11-09 11:53 | Outpatient (BNV) | payer MEDICAID, SELFPAY | PROVIDERS: Emergency Provider Emergency Medicine; PCP General Practice; Visit Provider Radiology Diagnostic Radiology | DX: I10 Essential (primary) hypertension (principal) | CPT/HCPCS: 70450 ==

== ENCOUNTER 2024-11-18 14:03 | Emergency (ER) | payer MEDICAID, SELFPAY ==
--- NOTE | ~2024-11-18 | XR_ITS ---
EXAMINATION: XR HAND/WRIST, LEFT CLINICAL INFORMATION: Laceration s/p fall. hand/wrist pain COMPARISON: None available. TECHNIQUE: PA, lateral, and oblique views of the left hand and wrist. FINDINGS: The bones and soft tissues are normal. No fracture. Alignment is anatomic. Joint spaces are maintained. No erosions or soft tissue calcifications. XR/XR hand wrist LT IMPRESSION: Normal radiographs of the hand and wrist. Electronically signed by: Alcon Villa MD 11/18/2024 03:29 PM [facility]
[2024-11-18 14:29] VITALS: BP 185/118; PULSE 94; RESP 20; TEMP 36.7; O2SAT 98; BMI 36.1
--- NOTE | 2024-11-18 14:32 | ED.SKABFB ---
HPI - Skin/Abscess/Foreign Bdy General Chief complaint: Wound/Laceration Stated complaint: Finger Lac Time Seen by Provider: 11/19/24 02:35 Source: patient Limitations: no limitations History of Present Illness ED Provider: Hollie Chawla PA-C HPI narrative: 49-year-old male presents with right finger laceration. Patient states he was shoveling snow he subsequently fell, lacerating his right 3rd finger. Tetanus up-to-date. Related Data Home Medications ?Medication ?Instructions ?Recorded ?Confirmed amlodipine 5 mg tablet 5 mg PO DAILY 01/29/23 01/29/23 aspirin 81 mg tablet,delayed 81 mg PO DAILY 01/29/23 01/29/23 release (Adult Aspirin Regimen) meloxicam 7.5 mg tablet 7.5 mg PO DAILY knee pain 01/29/23 01/29/23 simvastatin 20 mg tablet 20 mg PO QPM cholesterol 01/29/23 01/29/23 Previous Rx's ?Medication ?Instructions ?Recorded metoprolol succinate 25 mg 25 mg PO DAILY #30 tabs 06/22/21 tablet,extended release 24 hr (Toprol XL) diphenhydramine HCl 25 mg capsule 25 mg PO TID PRN itchiness 10 days 07/07/21 (Benadryl) #30 caps metoprolol succinate 50 mg 50 mg PO DAILY #30 tabs 07/20/21 tablet,extended release 24 hr (Toprol XL) amlodipine 10 mg tablet 10 mg PO DAILY #30 tabs 10/20/24 metoprolol succinate 50 mg 50 mg PO DAILY #30 tabs 10/20/24 tablet,extended release 24 hr Allergies Allergy/AdvReac Type Severity Reaction Status Date / Time No Known Allergies Allergy Verified 11/18/24 14:31 Review of Systems Review of Systems: Yes all other systems are reviewed and are negative Constitutional: Constitutional: Denies fatigue and Denies fever(s) Musculoskeletal: Musculoskeletal: Reports arthralgias and Denies joint swelling Endocrine: Endocrine: Denies fatigue PMFSH Past Medical History Attestation statement: The following information was validated with the patient. Medical History Myocardial infarction HTN (hypertension) Surgical History H/O heart artery stent Family History Family History (Updated 01/29/23 @ 13:03 by Aminata Calabrese) Mother No problems noted. Father HTN (hypertension) Social History Social History (Updated 06/22/21 @ 09:28 by Marlene Fernandez DO) Unable to assess alcohol history related to: Unknown Patient Tobacco Use Status: Current everyday Tobacco user Advance Directives: No Advance Directives Information Provided: Yes Do you have a plan to hurt others: No Plan Physical Exam Vital Signs: Vital Signs: Last Vital Signs Temp 98.4 F 11/19/24 03:35 Pulse 84 11/19/24 03:35 Resp 20 11/19/24 03:35 BP 191/130 H 11/19/24 03:35 Pulse Ox 98 11/19/24 03:35 O2 Del Method Room Air 11/19/24 03:35 BMI result Body Mass Index 36.1 Const: Other: Alert Orientation/consciousness: patient oriented x3 Resp: Effort & Inspection: normal respiratory effort Cardio: Other: Normal peripheral perfusion Skin: Other: Warm dry no rash Neuro: General: patient oriented x3, no focal motor deficits and CN's II-XI intact bilaterally Extrem: Other: 2-1/2 cm linear laceration across the pad of the 3rd right digit, no longer bleeding Psych: Other: Cooperative Course Course Course Narrative: This is a Rapid Medical Exam performed in triage by Tata Rainey PA-C. Full HPI, ROS and PE to be performed by primary ED provider. 49-year-old female with a past medical history of CAD, HTN presenting to the ED c/o laceration to left middle finger and hand s/p fall while shoveling [employer]. Tetanus UTD. Denies head trauma or LOC PE: + laceration to left middle finger and thenar eminence Plan: X-ray, will need suture repair Medications Administered Discontinued Medications Generic Name Dose Route Start Last Admin Trade Name Freq PRN Reason Stop Dose Admin Ibuprofen 600 mg 11/18/24 17:47 11/18/24 17:50 Ibuprofen 600 Mg Tablet PO 11/18/24 17:48 600 mg ONCE ONE Administration Lidocaine/Epinephrine 10 ml 11/19/24 02:35 11/19/24 02:47 Lidocaine Hcl 1%/Epi 1:100,000 10 Ml Vial INFILTRATI 11/19/24 02:36 10 ml ONCE ONE Administration Medical Decision Making Medical Decision Making [facility] Narrative: 49-year-old male presents with right finger laceration. Patient states he was shoveling snow he subsequently fell, lacerating his right 3rd finger. Tetanus up-to-date. No relevant chronic issues History: Per patient I have considered the following differential diagnoses: Fracture, dislocation, contusion, laceration Plan: X-rays obtained from triage, there was no communication with the bone, the laceration will require Simple repair. I have independently reviewed the following tests: X-ray right hand:RDER #: [id number] XR/XR hand wrist LT IMPRESSION: Normal radiographs of the hand and wrist. Electronically signed by: Alcon Villa MD 11/18/2024 03:29 PM [facility] Procedures Laceration Laceration 1: Site: hand Side (If applicable): right Size (cm): 3 Description: linear Depth: simple, single layer Local Anesthetic: lidocaine 1% and with epi Amount of anesthesia used (mL): 3 Pre-repair: irrigated extensively Skin layer closed with: nylon Size (cm): 3-0 Number of sutures: 5 Technique: simple, interrupted Discharge Plan Discharge Clinical Impression: Laceration of finger of right hand Patient Disposition: Home, Self-Care Instructions: Laceration (ED) Additional Instructions: 5 stitches were used to repair the laceration. They can be removed in 7 days. See home care instructions. Do not submerge your hand in stagnant water such as a bath, hot tub or a pool. You can shower normally. Watch for signs of infection which would include redness, swelling, pus draining from the finger or fever. If you develop any of these symptoms, seek medical attention. The x-ray of the hand was normal. Prescriptions: No Action metoprolol succinate [Toprol XL] 25 mg tablet extended release 24 hr 25 mg PO DAILY Qty: 30 3RF metoprolol succinate [Toprol XL] 50 mg tablet extended release 24 hr 50 mg PO DAILY Qty: 30 1RF diphenhydramine HCl [Benadryl] 25 mg capsule 25 mg PO TID PRN (Reason: itchiness) 10 Days Qty: 30 0RF amlodipine 10 mg tablet 10 mg PO DAILY Qty: 30 0RF metoprolol succinate 50 mg tablet extended release 24 hr 50 mg PO DAILY Qty: 30 0RF meloxicam 7.5 mg tablet 7.5 mg PO DAILY simvastatin 20 mg tablet 20 mg PO QPM amlodipine 5 mg tablet 5 mg PO DAILY aspirin [Adult Aspirin Regimen] 81 mg tablet,delayed release (DR/EC) 81 mg PO DAILY Stand Alone Forms: Work/School Release Interventions: ED Discharge Assessment Last Done: 11/19/24 03:35 Discharge Date/Time: 11/19/24 03:36 Print Language: Latvian
[2024-11-18 17:45] VITALS: BP 216/142; PULSE 78; RESP 20; TEMP 36.6; O2SAT 97
[2024-11-18] MEDS: Ibuprofen 600 MG TABLET PO (17:50)
[2024-11-19 00:33] VITALS: BP 199/132; PULSE 71; RESP 16; TEMP 36.9; O2SAT 97
[2024-11-19] MEDS: Lidocaine HCl 1%/Epi 1:100,000 10 ML VIAL INFILTRATI (02:47)
[2024-11-19 03:35] VITALS: BP 191/130; PULSE 84; RESP 20; TEMP 36.9; O2SAT 98
== END 2024-11-19 03:36 | disposition home or self-care (01) ==
PROVIDERS: Emergency Provider Internal Medicine; PCP General Practice
DX: S61.212A Laceration without foreign body of right middle finger without damage to nail, initial encounter (principal); M79.641 Pain in right hand; F17.210 Nicotine dependence, cigarettes, uncomplicated; W26.9XXA Contact with unspecified sharp object(s), initial encounter; Y93.H1 Activity, digging, shoveling and raking; Y92.096 Garden or yard of other non-institutional residence as the place of occurrence of the external cause; Y99.8 Other external cause status; Z79.899 Other long term (current) drug therapy
CPT/HCPCS: 12002; 73110; 73130; 99283; 99284; J2004

== ENCOUNTER → 2024-11-18 14:34 | Outpatient (BNV) | payer MEDICAID, SELFPAY | PROVIDERS: PCP General Practice; Visit Provider Radiology Diagnostic Radiology | DX: M79.645 Pain in left finger(s) (principal) | CPT/HCPCS: 73110; 73130 ==

== ENCOUNTER 2024-12-15 10:19 | Outpatient (REF) | payer MEDICAID, SELFPAY ==
--- OUTSIDE RECORDS SUMMARY | 2024-12-15 12:12 | XMS_ITS | Encounter Summary ---
Author Organization [employer] Address [address] [place] [address] Care Team Providers Care Side Laster Tack Name Role Phone Hanny Soto MD Primary Care Provider [phone] Reason for Visit * Reason Comments Pre-visit Planning SDOH screening negat joni and tobacco screening negative Encounter Details Date Type Department Care Team ([facility] Contact Info) Description 12/08/2024 Patient Outreach [facility] [address], [place] [id number] Hanny Soto MD [address] [place] [address] Pre-visit Planning (SDOH screening negative and tobacco screening negative) Social History Tobacco Use Types Packs/Day Years Used Date Smoking Tobacco: Some Days Cigarettes Smokeless Tobacco: Never Alcohol Use Standard Drinks/Week Comments Not Currently 0 (1 standard drink = 0.6 oz pur e alcohol) Alcohol Answer Date Recorded How often do you have a drink containing alcohol ? 2 12/02/2024 How many drinks containing a lcohol do you have on a typical day when you are drinking? 0 12/02/2024 How often do you have six or more drinks on one occasion? 0 12/02/2024 Depression Answer Date Recorded Patient Health Questionnaire-9 Score 12 10/20/2024 Patient Health Questionnaire-9 Score 12 10/20/2024 Last PHQ-9: Questionnaire Data Not on file 0 10/20/2024 Housing Stability Answer Date Recorded What is your housing situation today? I have deanne nileson 10/20/[address] you li [...] from getting things needed for daily living? No 12/08/2024 Intimate Partner Violence Answer Date R ecorded Within the last year, have y ou been afraid of your partner or ex-partner? 2 12/02/2024 Within the last year, have y ou been humiliated or emotionally abused in other ways by your partner or ex-partner? 2 Within the last year, have y ou been kicked, hit, slapped, or otherwise physically hurt by your partner or ex-partner? 2 12/02/2024 Within the last year, have y ou been raped or forced to have any kind of sexual activity by your partner or ex-partner? 2 12/02/2024 Utilities Answer Date Recorded In the past 12 months, has t he electric, gas, oil or water company threatened to shut off services in your home? No 10/20/2024 Depression Answer Date Recorded Patient Health Questionnaire-2 Score 3 10/20/2024 Internet Access Answer Date Recorded Internet Access Q1 Yes 12/08/2024 Internet Access Q2 Not on file 12/08/2024 Sex and Gender Information Value Date Recorded Sex Assigned at Male 08/06/2022 10:39 AM EDT Legal Sex Male 10:39 AM EDT Gender Identity Male 08/06/2022 10:39 AM EDT Sexual Orientation Straight 08/06/2022 10 :39 AM EDT documented as of this encounter Progress Notes * Ila Chamorro - 12/08/2024 9:59 AM EST OLIVER Thorpe. placed successful outbound call to patient for pre-visit planning. Patient name and confirmed. Patient confirms appt date and time, and has transportation arrangements. Biggest concernfor appointment at this time is falls frequently and elevate BP Appropriate screenings completed inanticipation of appointment. documented in this encounter Plan of Treatment Upcoming Encounters Date Type Department Care Team (Late st Contact Info) Description 12/23/2024 11:30 AM EDT Clinical Support [facility] [address] [place] [address] 12/28/2024 9:00 AM EDT Office Visit [facility] [address] [place] [address] Derek Iverson, DMD [address] [place] [address] documented as of this encounter Visit Diagnoses Not on filedocumented in this encounter Additional Health Concerns Assessment Noted Time PHQ-9 Depression Total Score: 12 025 2:45 PM EST documented as of this encounter Care Teams Side Laster Tack Relationship Specialty Start Date End Date Hanny Soto MD [address] [place] [address] PCP - General Family Medicine 07/13/22 documented as of this encounter
--- OUTSIDE RECORDS SUMMARY | 2024-12-15 12:12 | XMS_ITS | Encounter Summary ---
Author Organization [employer] Address [address] [facility] 7t [place] [address] Care Team Providers Care Trust Clerk Name Role Phone Hanny Soto MD Primary Care Provider Reason for Visit * Reason Comments Med Refill Encounter Details Date Type Department Care Team ([facility] st Contact Info) Description 12/12/2024 Refill [facility] MEDICINE [address] [place], [place] [phone] Jose Castellon MD [address] [place], [place] [phone] Hypertensive urgency Social History Tobacco Use Types Packs/Day Years [...] Description 12/23/2024 11:30 AM EDT Clinical Support [facility] MEDICINE [address] [place] [address] 12/28/2024 9:00 AM EDT Office Visit [facility] ADULT DENTAL [address] [place] [address] Derek Iverson, IVELISSE [address] [place] [address] documented as of this encounter Visit Diagnoses Diagnosis Hypertensive urgency documented in this encounter Additional Health Concerns Assessment Noted Time PHQ-9 Depression Total Score: 12 025 2:45 PM EST documented as of this encounter Care Teams Trust Clerk Relationship Specialty Start Date End Date Hanny Soto MD [address] [place] [address] PCP - General Family Medicine 07/13/22 documented as of this encounter
--- OUTSIDE RECORDS SUMMARY | 2024-12-15 12:12 | XMS_ITS ---
Author Organization [facility] Address [address] [place], [place] [id number] Care Team Providers Care Head Grease Maker Name Role Phone [facility] Primary Care Provider Aixa Schmitz Unavailable [phone] Jane Patton Unavailable [phone] REASON FOR VISIT Apply for [facility] Insurance Encounters Encounter Location Date Provider Diagnosis [facility] [address] [place], [place] [phone] 05/06/2024 Jane Patton Plan Of Treatment No Information Progress Notes * Max STRINGER EdisonarDOB :1975 (49 yo M)Acc No.[id number]:05/06/2024 Case Management New Patient:?Jomar Stringer Provider:?Jane Patton :1975???Age:49 Y???Sex:Male Rishabh e:05/06/2024 Address:[address] [place], [place] [id number] Pcp:[facility] Subjective: * Chief Complaints: * ???1. Apply for [facility]. * HPI: ???Social Service:?Action Taken?[facility]? [employer] paper application was completed with client and faxed over to Enrollment Center. 05/06/24 gd2.? Objective: Assessment: Plan: * Treatment: * Images: Billing Information: * Visit Code:? * Procedure Codes:? Care Plan Details* * Sign off status: Completed true * Provider:Kat Patton Date:?05/06/2024 Generated for Riley farrar/Yamileth/eTransmitting on:?12/15/2024 08:52 AM EDT History and Physical Notes * HPI (History of Present Illness) Category Sub-Category Detail Notes Social Service Action Taken [facility] : [facility] p aper application was completed with client and faxed over to Enrollment Center. 05/06/24 gd2
--- OUTSIDE RECORDS SUMMARY | 2024-12-15 12:12 | XMS_ITS | Encounter Summary ---
Author Organization [employer] [facility] Address [address] [place] [address] 7 [place] [address] Care Team Providers Care Diamond Die Polisher Name Role Phone Hanny Soto MD Primary Care Provider [phone] Reason for Referral * Consultation (Routine) - Pending Review Specialty Diagnoses / Procedures Referred By Elan tinajero Referred To Contact Gastroenterology Diagnoses Screening for colon cancer Hanny Soto MD [address] [place] [address] Phone: tel: fax: Referral ID Status Reason Start Date Expiration Date Visits Requested Visits Authorized [id number] Pending Review Specialty Services Required 12/15/2024 12/15/2025 1 1 Reason for Visit * Reason Comments Annual Exam Encounter Details Date Type Department Care Team (Late st Contact Info) Description 12/15/2024 10:30 AM EDT Office Visit [facility] MEDICINE [address] [place] [phone] Hanny Soto MD [address] [place] [phone] Screening for colon cancer (Primary Dx); Essential hypertension Social History Tobacco Use Types Packs/Day Years [...] Sign Reading Time Taken Comments Blood Pressure 201/122 12/15/2024 9:04 AM EDT Pulse 75 12/15/2024 9:04 AM EDT Temperature 36.7 ??C (98 ??F) 12/15/2024 9:04 AM EDT Respiratory Rate 18 12/15/2024 9:04 AM EDT Oxygen Saturation 97% 12/15/2024 9:04 AM EDT Inhaled Oxygen Concentration - - Weight 114 kg (251 lb) 12/15/2024 9:04 AM EDT Height 180.3 cm (5' 11 ) 12/15/2024 9:04 AM EDT Body Mass Index 35.01 12/15/2024 9:04 AM EDT documented in this encounter Plan of Treatment Upcoming Encounters Date Type Department Care Team (Late st Contact Info) Description 12/23/2024 11:30 AM EDT Clinical Support [facility] MEDICINE [address] [place] [address] 12/28/2024 9:00 AM EDT Office Visit [facility] ADULT DENTAL [address] [place] [address] Derek Iverson DMD [address] [place] [address] Scheduled Referrals Name Type Priority Associated Diagnoses Order Schedule Referral to Gastroenterology Outpatient Referral Routine Screening for colon cancer Expected: 12/15/2024 (Approximate), Expires: 12/15/2025 documented as of this encounter Visit Diagnoses Diagnosis Screening for colon cancer- Primary Special screening for malignant neoplasms, colon Essential hypertension Unspecified essential hypertension documented in this encounter Additional Health Concerns Assessment Noted Time PHQ-9 Depression Total Score: 12 025 2:45 PM EST documented as of this encounter Care Teams Diamond Die Polisher Relationship Specialty Start Date End Date Hanny Soto MD [address] [place] [address] PCP - General Family Medicine 07/13/22 documented as of this encounter
--- OUTSIDE RECORDS SUMMARY | 2024-12-15 12:12 | XMS_ITS | Encounter Summary ---
Author Organization [facility] Address [address] [facility] 7[address] [place] [address] Care Team Providers Care Marine Habitat Resource Specialist Name Role Phone Hanny Soto MD Primary Care Provider [phone] Reason for Visit * Reason Onset Date Comments LANDSCAPE LABORER Referral 12/03/2024 I called the pat annie, regarding his request for a referral for LANDSCAPE LABORER services. He stated that he needs assistance with bathing, and getting dressed. He stated that his blood pressure is constantly high, it makes him dizzy, and it is difficult to perform ADL's. He stated that he has a spouse, but she works, and is unable to assist him. Encounter Details Date Type Department Care Team (Late st Contact Info) Description 12/03/2024 Telephone [facility] MEDICINE [address] [place] [address] Hanny Soto MD [address] [place] [address] LANDSCAPE LABORER Referral (I called the patient, regarding his request for a referral for LANDSCAPE LABORER services. He stated that he needs assistance with bathing, and getting dressed. He stated that his blood pressure is constantly high, it makes him dizzy, and it is difficult to perform ADL's. He stated that he has a spouse, but she works, and is unable to assist him.) Social History Tobacco Use Types Packs/Day Years [...] or getting things that I need 10/20/2024 Intimate Partner Violence Answer Date R ecorded [...] encounter Miscellaneous Notes * Telephone Encounter - Trisha Espinoza [place] - 12/03/2024 4:17 PM EST I called the patient, regarding his request for a referral for LANDSCAPE LABORER services. He stated that he needs assistance with bathing, and getting dressed. He stated that his blood pressure is constantly elevated, which makes him dizzy, and it is difficult to perform ADL's. He stated that he has a spouse, but she works, and is unable to assist him. documented in this encounter Plan of Treatment Upcoming Encounters Date Type Department Care Team (Late st Contact Info) Description 12/23/2024 11:30 AM EDT Clinical Support [facility] MEDICINE [address] [place] [address] 12/28/2024 9:00 AM EDT Office Visit [facility] ADULT DENTAL [address] [place] [address] Derek Iverson, IVELISSE [address] [place] [address] documented as of this encounter Visit Diagnoses Not on filedocumented in this encounter Additional Health Concerns Assessment Noted Time PHQ-9 Depression Total Score: 12 10/20/ 025 2:45 PM EST documented as of this encounter Care Teams Marine Habitat Resource Specialist Relationship Specialty Start Date End Date Hanny Soto MD [address] [place] [address] PCP - General Family Medicine 07/13/22 documented as of this encounter
--- OUTSIDE RECORDS SUMMARY | 2024-12-15 12:12 | XMS_ITS | Encounter Summary ---
Author Organization [employer] Address [address] [facility] [address] [place] [address] Care Team Providers Care Show Jumping Instructor Name Role Phone Hanny Soto MD Primary Care Provider [phone] Encounter Details Date Type Department Care Team (Latest Contact Info) Description 12/15/2024 Travel Social History Tobacco Use Types Packs/Day [...] Description 12/23/2024 11:30 AM EDT Clinical Support [facility] MEDICINE [address] [place] [address] 12/28/2024 9:00 AM EDT Office Visit [facility] ADULT DENTAL [address] [place] [address] Derek Iverson, IVELISSE [address] [place] [address] documented as of this encounter Visit Diagnoses Not on filedocumented in this encounter Additional Health Concerns Assessment Noted Time PHQ-9 Depression Total Score: 12 025 2:45 PM EST documented as of this encounter Care Teams Show Jumping Instructor Relationship Specialty Start Date End Date Hanny Soto MD [address] [place] [address] PCP - General Family Medicine 07/13/22 documented as of this encounter
--- OUTSIDE RECORDS SUMMARY | 2024-12-15 12:12 | XMS_ITS | Encounter Summary ---
Author Organization [employer] Address [address] [facility] [address] [place] [address] Care Team Providers Care Screen Printing Equipment Setter Name Role Phone Hanny Soto MD Primary Care Provider [phone] Encounter Details Date Type Department Care Team (Latest Contact Info) Description 12/01/2024 Travel Social History Tobacco Use Types Packs/Day [...] Description 12/23/2024 11:30 AM EDT Clinical Support [facility] MEDICINE [address] [place] [address] 12/28/2024 9:00 AM EDT Office Visit [facility] ADULT DENTAL [address] [place] [address] Derek Iverson, IVELISSE [address] [place] [address] documented as of this encounter Visit Diagnoses Not on filedocumented in this encounter Additional Health Concerns Assessment Noted Time PHQ-9 Depression Total Score: 12 025 2:45 PM EST documented as of this encounter Care Teams Screen Printing Equipment Setter Relationship Specialty Start Date End Date Hanny Soto MD [address] [place] [address] PCP - General Family Medicine 07/13/22 documented as of this encounter
--- OUTSIDE RECORDS SUMMARY | 2024-12-15 12:13 | XMS_ITS | Clinical Summary ---
Author Organization [employer] Address [address] [facility] [address] [place] [address] Care Team Providers Care Salesperson [employer] Equipment Name Role Phone Hanny Soto MD Primary Care Provider [phone] Allergies No known active allergies Medications * This document contains information received from the source organization and may not represent a complete record from that organization. meloxicam (Mobic) 7.5 MG tablet take 1 tablet by oral route every day for knee pain 07/13/20 22 Active acetaminophen (Tylenol 8 Hour) 650 MG ER tablet Take 1 tablet by mouth every 8 (eight) hours. 05/25/20 22 Active escitalopram (Lexapro) 5 MG tabletIndicatio ns:Anxiety Take 1 tablet (5 mg) by mouth Once per day. 30 tablet 2 12/01/19 25 2024 Active simvastatin (Zocor) 20 MG tabletIndicatio ns:Essential hypertension Take 1 tablet (20 mg) by mouth at bedtime. For cholesterol 90 tablet 11 12/01/19 25 Active metoprolol succinate XL (Toprol-XL) 50 MG 24 hr tabletIndicatio ns:Essential hypertension Take 1 tablet (50 mg) by mouth Once per day. 90 tablet 2 12/01/19 25 Active olmesartan (BENIcar) 5 MG tabletIndicatio ns:Essential hypertension Take 1 tablet (5 mg) by mouth Once per day. 90 tablet 3 12/01/19 25 2025 Active amLODIPine (Norvasc) 10 MG tabletIndicatio ns:Essential hypertension Take 1 tablet (10 mg) by mouth Once per day. 90 tablet 3 12/16/19 25 Active simvastatin (Zocor) 20 MG tablet take 1 tablet by oral route every day in the evening for cholesterol 07/13/20 22 2024 Discontinued(R eorder (will not trigger notification to Pharmacy)) hydrOXYzine HCl (Atarax) 25 MG tablet take 1 tablet by oral route up to three times a day as needed for anxiety 07/13/20 22 2024 Discontinued(T herapy completed) amLODIPine (Norvasc) 5 MG tabletIndicatio ns:Hypertensive urgency Take 1 tablet (5 mg) by mouth Once per day. 30 tablet 1 10/20/19 25 2024 Discontinued(D ose adjustment) metoprolol succinate XL (Toprol-XL) 50 MG 24 hr tabletIndicatio ns:Hypertensive urgency Take 1 tablet (50 mg) by mouth Once per day. 30 tablet 1 10/20/19 25 2024 Discontinued(R eorder (will not trigger notification to Pharmacy)) amLODIPine (Norvasc) 10 MG tabletIndicatio ns:Essential hypertension Take 1 tablet by mouth Once per day. 10/21/19 25 2024 Discontinued(R eorder (will not trigger notification to Pharmacy)) cephalexin (Keflex) 500 MG capsuleIndicati ons:Finger infection Take 1 capsule (500 mg) by mouth 3 times daily for 5 days. 15 capsule 12/02/19 25 2024 hydrocortisone 2.5 % creamIndication s:Hypertrophic scar Apply topically 2 times daily for 10 days. Apply to scar across nose 60 g 12/02/19 25 2024 Active Problems Problem Noted Date Diagnosed Date Essential hypertension 12/02/2024 Assessment & Plan (12/02/2024 10:55 AM EST): Maintenance: Amlodipine 10, Toprolol 50mg XL ADD OLMESARTAN 5mg today Pt is non compliant and seems unaware of risks of HTN, yet afraid to move due to concern of falling BMP: Lipid Panel: ordered ASCVD Risk: Calculate pending updated labs EKG: Obtain baseline at f/u - Aerobic exercise to reduce BP. Initial goal of 30 min walk 3-5x/week. Increase as tolerated. - low-sodium diet (goal: <2g/day) and heart healthy diet such as DASH to reduce BP and prevent ASCVD. - Home BP monitoring 1-2 x day with goal of <140/90. - Seek immediate medical attention for chest pain, palpitations, SOB, syncope, or sudden changes in mental status. - Do not change or discontinue current prescriptions without first consulting health care provider Anxiety 12/02/2024 Assessment & Plan (12/02/2024 10:57 AM EST): This is playing a role in his symptoms as well He cannot take hydroxyzine, so medication discontinued and started on Lexapro 5mg daily Class 1 obesity with serious comorbidity and body mass index (BMI) of 34.0 to 34.9 in adult 12/02/2024 Hypertensive urgency 08/24/2022 Assessment & Plan (12/02/2024 10:56 AM EST): Stressed importance of regular med compliance, to pharmacy picking tech his medications after this visit and take as soon as he gets home with a meal Start taking three anti-HTN tomorrow morning ER precautions for CP, arm pain May need manager talent acquisition or workup for secondary HTN if we can ensure compliance and his BP remains elevated Assessment & Plan (10/20/2024 3:09 PM EST): [...] plan Transported via ambulance, signed off to [facility] ER Encounters * This document contains information received from the source organization and may not represent a complete record from that organization. Date Type Department Care Team Description 12/15/2024 10:30 AM EDT Office Visit [facility] [address] [place] [phone] Hanny Soto MD Screening for colon cancer (Primary Dx); Essential hypertension 12/15/2024 Travel 12/12/2024 Refill [facility] [address] [place] [address] Jose Castellon MD Hypertensive urgency 12/08/2024 Patient Outreach [address] [address] Hanny Soto MD Pre-visit Planning (SDOH screening negative and tobacco screening negative) 12/03/[address] [address] Hanny Soto MD HOMEOPATHIC DOCTOR Referral (I called the patient, regarding his request for a referral for HOMEOPATHIC DOCTOR services. He stated that he needs assistance with bathing, and getting dressed. He stated that his blood pressure is constantly high, it makes him dizzy, and it is difficult to perform ADL's. He stated that he has a spouse, but she works, and is unable to assist him.) 12/01/2024 11:30 AM EST Office Visit [address] [address] Hanny Soto MD Essential hypertension (Primary Dx); Hypertensive urgency; Sexually transmitted infection; Anxiety; Finger infection; Dietary counseling; Exercise counseling; Class 1 obesity with serious comorbidity and body mass index (BMI) of 34.0 to 34.9 in adult, unspecified obesity type; Hypertrophic scar 12/01/2024 Travel 11/30/[address] [address] Hanny Soto MD Chart prep 11/17/2024 Patient Outreach [address] [address] Hanny Soto MD Pre-visit Planning ((Unable to reach for PVP screening or LVM)) 11/02/[address] [address] Hanny Soto MD ER Follow-up 10/20/2024 2:30 PM EST Office Visit [address] [address] Jose Castellon MD Hypertensive urgency (Primary Dx) 10/20/2024 Orders Only GENERIC EXTERNAL DATA DEPARTMENT Provider, Generic External Data 10/20/2024 Travel 10/09/2024 Patient Outreach [address] [address] Hanny Soto MD Pre-visit Planning (Pre-visit planning -unable to LVM all numbers are not working.) 10/05/2024 Telephone [facility] [address] [place], [place] [phone] Hanny Soto MD Chart Prep from Last [...] is your housing situation today? I have deannemanda nielson 10/20/[address] you [...] Mass Index 35.01 12/15/2024 9:04 AM EDT Plan of Treatment Upcoming Encounters Date Type Department Care Team (Late st Contact Info) Description 12/23/2024 11:30 AM EDT Clinical Support [facility] [address] [place] [address] 12/28/2024 9:00 AM EDT Office Visit [facility] [address] [place] [address] Derek Iverson, IVELISSE [address] [place] [address] Health Maintenance Due Date Last Done Comments CT Colonography 1975 Colonoscopy 1977 Colorectal Cancer Screening 1977 Dental Oral Exam 1977 Dental Prophylaxis 1977 Dental X-Ray: Bitewings 1977 FIT DNA/Cologuard 1977 FIT 1977 FOBT 1977 HIV Screening 1975 Lipid Panel 1977 Sigmoidoscopy 1977 Hepatitis C Screening 1995 Hepatitis A Vaccines (1 of 2 - Risk 2-dose series) 1996 Hepatitis B Vaccines (1 of 3 - 19+ 3-dose series) 1996 Pneumococcal Vaccine: Pediatrics (0 to 5 Years) and At-Risk Patients (6 to 49) Years) (1 of 2 - PCV) 1996 COVID-19 Vaccine (2023-2 5 season) 2024 09/22/2021, 02/22/2021 Influenza Vaccine (#1) 2024 Depression Monitoring (PHQ-9) 04/19/2025, 10/20/2024 Alcohol/Substance Use Screening 10/20/2025 10/20/2024 Depression Screening 10/20/2025 10/20/2024, 10/20/2024 Family Planning (PISQ) 12/02/2025 12/02/2024 SDOH Screening 12/08/2025 12/08/2024 Tobacco Screening 12/15/2025 12/15/2024 Dental X-Ray: Full Mouth 12/04/2026 12/03/2023 Zoster Vaccines (1 of 2) 2027 DTaP/Tdap/Td Vaccines (2 - T d or Tdap) 07/13/2032 07/13/2022 RSV Patients and Patients Aged 60 years or older (1 - 1-dose 75+ series) 2052 Anal Pap Discontinued HIB Vaccines Aged Out No longer eligi [...] Procedure Name Priority Date/Time Associated Diagnosis Comments XR HAND WRIST LT Routine 11/18/2024 2:34 PM EST HIGH SENSITIVITY TROPONIN I Routine 11/09/2024 2:[address] HEAD WO CONTRAST Routine 11/09/2024 1 :47 PM EST HIGH SENSITIVITY TROPONIN I Routine 11/09/2024 11:32 AM EST COMPREHENSIVE METABOLIC PANEL Routine 11/09/2024 11:32 AM EST APTT Routine 11/09/2024 11:32 AM EST PROTHROMBIN TIME-INR Routine 11/09/2024 11:32 AM EST CBC WITH AUTO DIFFERENTIAL Routine 11/09/2024 11:[address] SINUS FACIAL BONES WO CONTRAST Routine [...] Recently Relevant to Health Maintenance Results * XR HAND WRIST LT (11/18/2024 2:34 PM EST) Anatomical Region Laterality Modality Abdomen Radiographic Radha ging 11/18/2024 2:34 PM EST Narrative 11/18/2024 3:32 PM EST ? [facility] ?[address] ?[place] [address] ?XRay Report ? Signed ? Patient: Medhat Hodgea,Max Johnson ?MR# ?? : [id number] ? : 1975 ?Acct:[id number] ? Age/Sex: 49 / M ?ADM Date: 11/18/24 ? Loc: HO.ED ? Attending Dr: ? Ordering Physician: Tata Rainey ?? Date of Service: 11/18/24 ?? Procedure(s): XR hand wrist LT ?? Accession Number(s): [id number] ? cc: Hanny Soto; Tata Rainey ? EXAMINATION: ?? XR HAND/WRIST, LEFT ? CLINICAL INFORMATION: ?? Laceration s/p fall. hand/wrist pain ? COMPARISON: ?? None available. ? TECHNIQUE: ?? PA, lateral, and oblique views of the left hand and wrist. ? FINDINGS: ?? The bones and soft tissues are normal. No fracture. Alignment is ?? anatomic. Joint spaces are maintained. No erosions or soft tissue ?? calcifications. ? XR/XR hand wrist LT ?? IMPRESSION: ?? Normal radiographs of the hand and wrist. ? Electronically signed by: ??Alcon Villa MD ??11/18/2024 03:29 PM EST RP ? Dictated By: ?Daisy,Alcon S MD ? Signed By: ?<Electronically signed by Alcon S Daisy, MD in OV> ?11/18/24 1529 ? DD/ 1434 ? TD/TT: 11/18/24 1520 ? Mantel Craftsman: MSM ? Procedure Note Jeni, Image - 11/19/2024 [facility] [address] [place] [address] XRay Report Signed Patient: Medhat GabrielMax OmarMR# : [id number] : 1975Acct:[id number] Age/Sex: 49 / MADM Date: 11/18/24 Loc: HO.ED Attending Dr: Ordering Physician: Tata Rainey Date of Service: 11/18/24 Procedure(s): XR hand wrist LT Accession Number(s): [id number] cc: Hanny Soto; Tata Rainey EXAMINATION: XR HAND/WRIST, LEFT CLINICAL INFORMATION: Laceration s/p fall. hand/wrist pain COMPARISON: None available. TECHNIQUE: PA, lateral, and oblique views of the left hand and wrist. FINDINGS: The bones and soft tissues are normal. No fracture. Alignment is anatomic. Joint spaces are maintained. No erosions or soft tissue calcifications. XR/XR hand wrist LT IMPRESSION: Normal radiographs of the hand and wrist. Electronically signed by: Alcon Villa MD 11/18/2024 03:29 PM EST Dictated By: Alcon Villa MD Signed By: <Electronically signed by Alcon Villa MD in OV> 11/18/24 1529 DD/ 1434 TD/TT: 11/18/24 1520 Mantel Craftsman: LEANNA [facility] External Provider IMG XR PROCEDURES Final Result * High Sensitivity Troponin I (11/09/2024 2:45 PM EST) Only the most recent of4 resultswithin the time period is included. TROPONIN I HIGH SENSITIVITY 17.4 <3.5 - 35.0 ng/L [facility] Comment:The Mckeon high sens itivity Troponin-I results should beused in conjunction with other diagnostic information suchas ECG, clinical observations and information, and patientsymptoms to aid in the diagnosis of AK. 11/09/2024 2:45 PM EST 11/09/2024 2:51 PM EST Generic External Data Provider LAB BLOOD ORDERAB LES Final Result [facility] [address] [place] [phone] * CT Head w/o Contrast (11/09/2024 1:47 PM EST) Only the most recent of2 resultswithin the time period is included. Anatomical Region Laterality Modality Head, Neck Computed Tomogra phy 11/09/2024 1:47 PM EST Narrative 11/09/2024 2:13 PM EST ? [facility] ?[address] ?[place] [address] ? CT Scan Report ? Signed ? Patient: Meléndez Gabriel,Max Johnson ?MR# ?? : [id number] ? : 1975 ?Acct:[id number] ? Age/Sex: 49 / M ?ADM Date: 11/09/24 ? Loc: HO.ED ? Attending Dr: ? Ordering Physician: Kemal Kelly ?? Date of Service: 11/09/24 ?? Procedure(s): CT head/brain wo IV con ?? Accession Number(s): [id number] ? cc: Kemal Kelly; Hanny Soto ? Report Number: ?? [id number]: Total DLP = ??758.00 mGy-cm ?? EXAMINATION: ?? CT HEAD WITHOUT CONTRAST ? CLINICAL INFORMATION: ?? Hypertension ? COMPARISON: ?? October 30/2025 ? TECHNIQUE: ?? Contiguous axial imaging was performed from the skull base to vertex ?? without intravenous administration of contrast. ? This CT examination was performed using dose optimization techniques as ?? appropriate, variously including the following: ?? *Automated exposure control ?? *Adjustment of mA and/or kV according to patient size (this includes ?? techniques or standardized protocols for targeted exams where dose is ?? matched to indication/reason for exam; i.e. extremities or head) ?? *Use of iterative reconstruction technique ? DLP: ?? 752.43 mGy-cm ? FINDINGS: ?? No acute intracranial hemorrhage, mass effect, midline shift, ?? hydrocephalus or herniation. ?? Pinedo-white matter differentiation is normal. Lung prominence of the ?? extra-axial CSF spaces along the frontal convexities. ?? Osteopenia cranial fossa contents demonstrated no acute intracranial ?? hemorrhage or mass effect. ?? No air-fluid levels in the included paranasal sinuses. ?? Tympanic cavities and mastoid air cells are aerated. ? CT/CT head/brain wo IV con ?? IMPRESSION: ?? No acute intracranial hemorrhage. Stable brain. ? Electronically signed by: ??Chandrakant Hughes MD ??11/09/2024 02:10 PM ?? EST RP ? Dictated By: ?Chandrakant Pitt MD ? Signed By: ?<Electronically signed by Chandrakant Cabrales MD in OV> ? 11/09/24 1410 ? DD/ 1347 ? TD/TT: 11/09/24 1403 ? Mantel Craftsman: ? Procedure Note Eric Ngo - 11/10/[address] [address] [address] Scan Report Signed Patient: Max Luis OmarMR# : [id number] : 1975Acct:[id number] Age/Sex: 49 / MADM Date: 11/09/24 Loc: HO.ED Attending Dr: Ordering Physician: Kemal Kelly Date of Service: 11/09/24 Procedure(s): CT head/brain wo IV con Accession Number(s): [id number] cc: Kemal Kelly; Hanny Soto Report Number: [id number]: Total DLP = 758.00 mGy-cm EXAMINATION: CT HEAD WITHOUT CONTRAST CLINICAL INFORMATION: Hypertension COMPARISON: October 30/2025 TECHNIQUE: Contiguous axial imaging was performed from the skull base to vertex without intravenous administration of contrast. This CT examination was performed using dose optimization techniques as appropriate, variously including the following: *Automated exposure control *Adjustment of mA and/or kV according to patient size (this includes techniques or standardized protocols for targeted exams where dose is matched to indication/reason for exam; i.e. extremities or head) *Use of iterative reconstruction technique DLP: 752.43 mGy-cm FINDINGS: No acute intracranial hemorrhage, mass effect, midline shift, hydrocephalus or herniation. Pinedo-white matter differentiation is normal. Lung prominence of the extra-axial CSF spaces along the frontal convexities. Osteopenia cranial fossa contents demonstrated no acute intracranial hemorrhage or mass effect. No air-fluid levels in the included paranasal sinuses. Tympanic cavities and mastoid air cells are aerated. CT/CT head/brain wo IV con IMPRESSION: No acute intracranial hemorrhage. Stable brain. Electronically signed by: Chandrakant Hughes MD 11/09/2024 02:10 PM EST RP Dictated By: Chandrakant Pitt MD Signed By: <Electronically signed by Chandrakant Cabrales MDin OV> 11/09/24 1410 DD/ 1347 TD/TT: 11/09/24 1403 Mantel Craftsman: [facility] External Provider IMG CT PROCEDURES Final Result * (ABNORMAL) CBC auto differential (11/09/2024 11:32 AM EST) Only the most recent of2 resultswithin the time period is included. White Blood Count 9.0 4.8 - 10.8 X10*3/uL [facility] Red Blood Count 5.42 4.60 - 5.80 X10*6/uL [facility] Hemoglobin 16.3 14.0 - 18.0 g/dl [facility] Hematocrit 47.4 42.0 - 52.0 % [facility] Mean Corpuscular Volume 87.5 80.0 - 98.0 fL [facility] Mean Corpuscular Hemoglobin 30.1 27.0 - 33.0 pg [facility] Mean Corpuscular HGB Conc 34.4 31.0 - 36.0 g/dl [facility] Red Cell Distribution Width 13.3 11.0 - 16.0 % [facility] Platelet Count 172 160 - 400 X10*3/uL [facility] Mean Platelet Volume 11.9 9.4 - 12.4 fL [facility] Neutrophils Percent Auto 73.7(H) 45 - 73 % [facility] Imm Gran Pct Auto 0.4 0.0 - 0.4 % [facility] Lymphocytes Percent Auto 16.0(L) 20 - 40 % [facility] Monocytes Percent Auto 7.9 2 - 11 % [facility] Eosinophils Percent Auto 1.2 0 - 4 % [facility] Basophils Percent Auto 0.8 0 - 2 % [facility] NRBC Pct Auto 0.0 0.0 - 0.2 /100WBC [facility] Neutrophils Absolute Auto 6.6 2.0 - 8.3 x10*3/uL [facility] Imm Gran Abs Auto 0.04(H) 0.00 - 0.03 X10*3/uL [facility] Lymphocytes Absolute Auto 1.4 1.2 - 4.9 X10*3/uL [facility] Monocytes Absolute Auto 0.7 0.1 - 1.2 X10*3/uL [facility] Eosinophils Absolute Auto 0.1 0.0 - 0.4 X10*3/uL [facility] Basophils Absolute Auto 0.1 0.0 - 0.2 X10*3/uL [facility] NRBC Abs Auto 0.000 0.0 - 0.012 X10*3/uL [facility] 11/09/2024 11:3 2 AM EST 11/09/2024 11:35 AM EST us Generic External Data Provider LAB BLOOD ORDERAB LES Final Result Performing Organization Address City/[facility]/ZIP Co de Phone Number [facility] [address] [place] [phone] * Partial Thromboplastin Time, Activated (APTT) (11/09/2024 11:32 AM EST) Partial Thromboplastin Time 30.9 26.0 - 36.8 SEC [facility] Comment:For information rega rding the monitoring of direct thrombininhibitors, please refer to Pharmacy. 11/09/2024 11:3 2 AM EST 11/09/2024 11:35 AM EST us Generic External Data Provider LAB BLOOD ORDERAB LES Final Result [facility] [address] [place] [address] [phone] * Prothrombin Time-INR (11/09/2024 11:32 AM EST) Pathologist [facility] Prothrombin Time 11.0 10.9 - 12.4 SEC [facility] INTERNATIONAL NORM RATIO 0.9 0.9 - 1.1 [facility] Comment:INTERNATIONAL NORMAL IZED RATIO (INR) REFERENCE RANGES Reference RangeFor patients not on anticoagulant therapy: 0.9 - 1.1INR ranges for oral anticoagulanttherapy:For prevention and treatment of venous thrombosis and pulmonary embolism: 2.0 - 3.0For acute myocardial infarction with aspirin therapy: 2.0 - 3.0For acute myocardial infarction without aspirin therapy: 3.0 - 4.0For patients with mechanical prosthetic heart valves: 2.5 - 3.5 11/09/2024 11:3 2 AM EST 11/09/2024 11:35 AM EST Generic External Data Provider LAB BLOOD ORDERAB LES Final Result Performing Organization Address [facility] de Phone Number [facility] [address] [place] [phone] * (ABNORMAL) Comprehensive Metabolic Panel (11/09/2024 11:32 AM EST) Only the most recent of2 resultswithin the time period is included. Pathologist [facility] Sodium 140 135 - 145 mmol/L [facility] Potassium 4.0 3.3 - 5.1 mmol/L [facility] Chloride 108 96 - 108 mmol/L [facility] Carbon Dioxide 27 22 - 29 mmol/L [facility] Anion Gap 9(L) 12 - 20 [facility] Urea Nitrogen (BUN) 17(H) 9 - 16 mg/dL [facility] Creatinine, Serum 1.45(H) 0.5 - 1.4 mg/dL [facility] Creatinine Clr Calc Pharmacy 80.0 [facility] Comment:eGFR (calculated fro m the MDRD study equation) and eCrCl(calculated from the Cockcroft-Gault equation) are based ondifferent parameters and may not yield comparable results.If eCrCl result is absurd, please check patient'sheight/weight. Estimated Glomerular Filt Rate 52 [facility] Comment:Chronic Kidney Disea se: Estimated GFR < 60 mL/min/[id number] Kidney Disease: Estimated GFR < 15 mL/min/1.73m2 Glucose 94 60 - 115 mg/dL [facility] Calcium 8.8 8.4 - 10.2 mg/dL [facility] Bilirubin, Total 0.5 0.0 - 1.0 mg/dL [facility] Aspartate Amino Transferase 24 5 - 37 U/L [facility] Alanine Aminotransferase 44(H) 0 - 40 U/L [facility] Total Protein 7.1 6.5 - 8.0 g/dL [facility] Albumin Level 4.1 3.5 - 5.0 g/dL [facility] Alkaline Phosphatase 93 39 - 117 U/L [facility] 11/09/2024 11:3 2 AM EST 11/09/2024 11:35 AM EST us Generic External Data Provider LAB BLOOD ORDERAB LES Final Result Performing Organization Address [facility]/State/[facility] Co de Phone Number [facility] [address] [place] [address] [phone] * CT Sinus Facial Bones w/o Contrast (10/30/2024 1:05 PM EST) Anatomical Region Laterality Modality Computed Tomogra phy 10/30/2024 1:05 PM EST Narrative 10/30/2024 2:01 PM EST ? [facility] ?[address] ?[place] [address] ? CT Scan Report ? Signed ? Patient: Meléndez Gabriel,Max Alex ?MR# ?? : [id number] ? : 1975 ?Acct:[id number] ? Age/Sex: 49 / M ?ADM Date: 01/24/25 ? Loc: HO.ED ? Attending Dr: ? Ordering Physician: Lizeth Roberts NP ?? Date of Service: 10/30/24 ?? Procedure(s): CT facial bones wo IV con ?? Accession Number(s): [id number] ? cc: Hanny Soto; Lizeth Roberts NP ? Report Number: ?? [id number]: Total DLP = ??466.56 mGy-cm ?? EXAMINATION: [...] ??Eloy Boswell MD ??10/30/2024 01:58 PM EST ? Dictated By: ?Eloy Boswell MD ? Signed By: ?<Electronically signed by Eloy Boswell MD in OV> ?10/30/24 1358 ? DD/ 1305 ? TD/TT: 10/30/24 1333 ? Mantel Craftsman: ? Procedure Note Eric Ngo - 11/02/[address] [address] [address] Scan Report Signed Patient: Medhat GabrielMax OmarMR# : [id number] : 1975Acct:[id number] Age/Sex: 49 / MADM Date: 10/30/24 Loc: HO.ED Attending Dr: Ordering Physician: Lizeth Roberts NP Date of Service: 10/30/24 Procedure(s): CT facial bones wo IV con Accession Number(s): [id number] cc: Hanny Soto; Lizeth Roberts NP Report Number: [id number]: Total DLP = 466.56 mGy-cm EXAMINATION: CT [...] 10/30/24 1358 DD/ 1305 TD/TT: 10/30/24 1333 Mantel Craftsman: [facility] External Provider IMG CT PROCEDURES Edited Result - Final * XR Fingers 2+ Views Right (10/20/2024 6:09 PM EST) Anatomical Region Laterality Modality Upper Extremities, Fingers Right Radio graphic Imaging 10/20/2024 6:09 PM EST Narrative 10/20/2024 6:12 PM EST ? [facility] ?[address] ?[place] [address] ?XRay Report ? Signed ? Patient: Meléndez Gabriel,Max Alex ?MR# ?? : [id number] ? : 1975 ?Acct:[id number] ? Age/Sex: 49 / M ?ADM Date: 10/20/24 ? Loc: HO.ED ? Attending Dr: ? Ordering Physician: Aminata Trevino CNP ?? Date of Service: 10/20/24 ?? Procedure(s): XR finger RT min 2V ?? Accession Number(s): [id number] ? cc: Aminata Trevino CNP; Hanny Soto [...] ? DD/ 08 ? TD/TT: 10/20/241808 ? Mantel Craftsman: ? Procedure Note Jeni, Eric - 10/21/2024 [place] [address] XRay Report Signed Patient: Max Luis OmarMR# : [id number] : 1975Acct:[id number] Age/Sex: 49 / MADM Date: 10/20/24 Loc: HO.ED Attending Dr: Ordering Physician: Aminata Trevino CNP Date of Service: 10/20/24 Procedure(s): XR finger RT min 2V Accession Number(s): [id number] cc: Aminata Trevino CNP; Hanny Soto CLINICAL [...] in OV> 10/20/241810 DD/ 08 TD/TT: 10/20/241808 Mantel Craftsman: [facility] External Provider IMG XR PROCEDURES Edited Result - Final from Last 3 Months Insurance DENTAL-[facility] MEDICAID STAND ADULT [facility] DENTAL-[facility] MEDICAID STAND ADULT Care Teams Salesperson Stereo Equipment Relationship Specialty Start Date End Date Hanny Soto MD [address] [place] [id number] PCP - General Family Medicine 07/13/22
--- OUTSIDE RECORDS SUMMARY | 2024-12-15 12:13 | XMS_ITS | Encounter Summary ---
Author Organization [employer] [facility] Address [address] [facility] 7 [place] [address] Care Team Providers Care Fleet Sales Manager Name Role Phone Hanny Soto MD Primary Care Provider [phone] Reason for Visit * Reason Comments Pre-visit Planning (Unable to reach for PVP screening or LVM) Encounter Details Date Type Department Care Team ([facility] Contact Info) Description 11/17/2024 Patient Outreach [facility] MEDICINE [address] [place], [place] [phone] Hanny Soto MD [address] [place] [address] Pre-visit Planning ((Unable to reach for PVP screening or LVM)) Social History Tobacco Use Types Packs/Day Years [...] encounter Progress Notes * Ila Chamorro - 11/17/2024 11:34 AM EST CC Ila placed outbound call to patient to complete pre-visit planning. No answer at this time. Patient name and were not confirmed. CC unable to leave a voice message. documented in this encounter Plan of Treatment Upcoming Encounters Date Type Department Care Team (Late st Contact Info) Description 12/23/2024 11:30 AM EDT Clinical Support [facility] MEDICINE [address] [place] [address] 12/28/2024 9:00 AM EDT Office Visit [facility] ADULT DENTAL [address] [place] [address] Deerk Iverson, DMD [address] [place] [address] documented as of this encounter Visit Diagnoses Not on filedocumented in this encounter Additional Health Concerns Assessment Noted Time PHQ-9 Depression Total Score: 12 025 2:45 PM EST documented as of this encounter Care Teams Fleet Sales Manager Relationship Specialty Start Date End Date Hanny Soto MD [address] [place] [address] PCP - General Family Medicine 07/13/22 documented as of this encounter
--- OUTSIDE RECORDS SUMMARY | 2024-12-15 12:13 | XMS_ITS | Patient Health Record ---
Author Organization [facility] Address [address], [place] [phone] Care Team Providers Care Biometrics Consultant Name Role Phone [facility] Primary Care Provider Jenifer Aixa Bedolla Unavailable [phone] Jane Patton Unavailable [phone] Reason For Referral No Information Encounters Encounter Location Date Provider Diagnosis [facility] Contact Representative [address] [place] [phone] 05/06/2024 Aixa Monet [facility] [address], [place] [phone] 05/06/2024 Jane Patton Plan Of Treatment No Information Insurance Providers Payer Name Payer Address Payer Phone Subscriber Number Group Number Insured Name Patient Relationship to Insured Coverage Start Date Coverage End Date [place] Medicaid C3 [address] [place], [place] [id number] Max Luis Self - patient is the insured
--- OUTSIDE RECORDS SUMMARY | 2024-12-15 12:13 | XMS_ITS | Encounter Summary ---
Author Organization [employer] [facility] Address [address] [facility] 7t [place] [address] Care Team Providers Care Direct Care Staffer Name Role Phone Eri Olvera MD Primary Care Provider [phone] Reason for Visit * Reason Comments Hypertension Encounter Details Date Type Department Care Team ([facility] st Contact Info) Description 12/01/2024 11:30 AM EST Office Visit [facility] MEDICINE [address] [place], [place] [phone] Eri Olvera MD [address] [place], [place] [phone] Essential hypertension (Primary Dx); Hypertensive urgency; Sexually transmitted infection; Anxiety; Finger infection; Dietary counseling; Exercise counseling; Class 1 obesity with serious comorbidity and body mass index (BMI) of 34.0 to 34.9 in adult, unspecified obesity type; Hypertrophic scar Social History Tobacco Use Types Packs/Day Years [...] Sign Reading Time Taken Comments Blood Pressure 186/117 12/01/2024 10:52 AM EST Pulse 74 12/01/2024 10:52 AM EST Temperature 36.7 ??C (98.1 ??F) 12/01/2024 10:[address] Respiratory Rate 19 12/01/2024 10:52 AM EST Oxygen Saturation 98% 12/01/2024 10:52 AM EST Inhaled Oxygen Concentration - - Weight 113 kg (250 lb) 12/01/2024 10:52 AM EST Height 180.3 cm (5' 11 ) 12/01/2024 10:52 AM EST Body Mass Index 34.87 12/01/2024 10:52 AM EST documented in this encounter Progress Notes * Eri Olvera MD - 12/01/2024 11:30 AM EST SUBJECTIVE: Max Gabriel is a 49 y.o. year old male who presents for chronic disease management. Last seen by me 07/2022 Acute Concerns: ER for HTN urgency (10/20/24) and accident where he fell and required stiches in late Oct 2024. Hurthis nose and his finger. His nose has healed with a scar cross the bridge of his nose. The finger is his left hand, 4th finger. He feels dizzy and unsteady and attributes this to his uncontrolled hypertension. Interim Updates: HTN/AL Does not check blood pressure at home Did not take medication today because he is out Denies CLARKE/CP/vision changes/SOB/leg swelling Prescribed Amlodipine 10mg and Metoprolol 50mg XL History of two heart attacks in [place] in 2011. Had a cardiac catheterization, does not know if he had a stent placed. Currently on Simvastatin. Is on ASA every other day and beta marissa. +FH CAD and DMII. He does not have a personal hx of DMII. +tobacco 5 cigs daily, socially alcohol: socially Does not have a portfolio assistant Anxiety Prescribed hydroxyzine, but thinks thi is too sedating for him Health Maintenance: Immunizations- declines Colorectal cancer- declines Patient Active Problem List Diagnosis Hypertensive urgency Essential hypertension Anxiety Class 1 obesity with serious comorbidity and body mass index (BMI) of 34.0 to 34.9 in adult History reviewed. No pertinent surgical history. No family history on file. Social History Social History Narrative +tobacco 5 cigs daily, socially alcohol: socially illicits: denies work: unemployed currently Living with AMAB partner and her 18 and 17 children Review of Systems Constitutional: Negative. Respiratory: Negative. Cardiovascular: Negative. Gastrointestinal: Negative. Musculoskeletal: Negative. Psychiatric/Behavioral: The patient is nervous/anxious. OBJECTIVE: Vitals: 12/01/24 1052 BP: (!) 186/117 BP Location: Right arm Patient Position: Sitting BP Cuff Size: Adult Pulse: 74 Resp: 19 Temp: 98.1 ??F (36.7 ??C) TempSrc: Temporal SpO2: 98% Weight: 250 lb (113 kg) Height: 5' 11 (1.803 m) Physical Exam Vitals and nursing note reviewed. Constitutional: Appearance: Normal appearance. He is normal weight. HENT: Head: Normocephalic and atraumatic. Right Ear: Tympanic membrane, ear canal and external ear normal. Left Ear: Tympanic membrane, ear canal and external ear normal. Nose: Nose normal. Mouth/Throat: Mouth: Mucous membranes are moist. Pharynx: Oropharynx is clear. Cardiovascular: Rate and Rhythm: Normal rate and regular rhythm. Pulses: Normal pulses. Heart sounds: Normal heart sounds. Pulmonary: Effort: Pulmonary effort is normal. Breath sounds: Normal breath sounds. Musculoskeletal: Cervical back: Normal range of motion and neck supple. Skin: General: Skin is warm and dry. Capillary Refill: Capillary refill takes less than 2 seconds. Findings: Lesion present. Comments: Hypertrophic scar of bridge of nose Slight swelling and tenderness around finger, L 4th that has stiches in it from prior laceration Neurological: General: No focal deficit present. Mental Status: He is alert and oriented to person, place, and time. Psychiatric: Mood and Affect: Mood normal. Behavior: Behavior normal. ASSESSMENT/PLAN Problem List Items Addressed This Visit Hypertensive urgency Current Assessment & Plan Stressed importance of regular med compliance, to pecan picker his medications after this visit and takeas soon as he gets home with a meal Start taking three anti-HTN tomorrow morning ER precautions for CP, arm pain May need portfolio assistant or workup for secondary HTN if we can ensure compliance and his BP remains elevated Relevant Orders Lipid Panel, Standard Essential hypertension - Primary Current Assessment & Plan Maintenance: Amlodipine 10, Toprolol 50mg XL ADD [...] pain, palpitations, SOB, syncope, or sudden changes inmental status. - Do not change or discontinue current prescriptions without first consulting health care provider Relevant Medications amLODIPine (Norvasc) 10 MG tablet simvastatin (Zocor) 20 MG tablet metoprolol succinate XL (Toprol-XL) 50 MG 24 hr tablet olmesartan (BENIcar) 5 MG tablet Other Relevant Orders Lipid Panel, Standard Anxiety Current Assessment & Plan This is playing a role in his symptoms as well He cannot take hydroxyzine, so medication discontinued and started on Lexapro 5mg daily Relevant Medications escitalopram (Lexapro) 5 MG tablet Class 1 obesity with serious comorbidity and body mass index (BMI) of 34.0 to 34.9 in adult Other Visit Diagnoses Sexually transmitted infection Relevant Orders HIV-1/2 Antigen and Antibodies, Fourth Generation, with Reflexes Hepatitis C Antibody with Reflex to HCV, RNA, Quantitative, Real-Time PCR RPR (Monitor) with Reflex to Titer Chlamydia/N. Gonorrhoeae RNA, TMA, Urogenitial Finger infection Relevant Medications cephalexin (Keflex) 500 MG capsule Dietary counseling Exercise counseling Hypertrophic scar Relevant Medications hydrocortisone 2.5 % cream Follow Up: 2 weeks for nurse BP check and 2 months with me or sooner prn No Known Allergies Current Outpatient Medications: amLODIPine (Norvasc) 10 MG tablet, Take 1 tablet by mouth Once per day., Disp: , Rfl: acetaminophen (Tylenol 8 Hour) 650 MG ER tablet, Take 1 tablet by mouth every 8 (eight) hours., Disp: , Rfl: cephalexin (Keflex) 500 MG capsule, Take 1 capsule (500 mg) by mouth 3 times daily for 5 days., Disp: 15 capsule, Rfl: 0 escitalopram (Lexapro) 5 MG tablet, Take 1 tablet (5 mg) by mouth Once per day., Disp: 30 tablet, Rfl: 2 hydrocortisone 2.5 % cream, Apply topically 2 times daily for 10 days. Apply to scar across nose, Disp: 60 g, Rfl: 0 meloxicam (Mobic) 7.5 MG tablet, take 1 tablet by oral route every day for knee pain, Disp: , Rfl: metoprolol succinate XL (Toprol-XL) 50 MG 24 hr tablet, Take 1 tablet (50 mg) by mouth Once per day., Disp: 90 tablet, Rfl: 2 olmesartan (BENIcar) 5 MG tablet, Take 1 tablet (5 mg) by mouth Once per day., Disp: 90 tablet, Rfl: 3 simvastatin (Zocor) 20 MG tablet, Take 1 tablet (20 mg) by mouth at bedtime. For cholesterol, Disp:90 tablet, Rfl: 11 Ukrainian Translation: Provided by [facility] staff member JENNIFER Norris documented in this encounter Miscellaneous Notes * Assessment & Plan Note - Eri Olvera MD - 12/02/2024 10:57 AM EST Associated Problem(s): Anxiety This is playing a role in his symptoms as well He cannot take hydroxyzine, so medication discontinued and started on Lexapro 5mg daily * Assessment & Plan Note - Eri Olvera MD - 12/02/2024 10:56 AM EST Associated Problem(s): Hypertensive urgency Stressed importance of regular med compliance, to pecan picker his medications after this visit and takeas soon as he gets home with a meal Start taking three anti-HTN tomorrow morning ER precautions for CP, arm pain May need portfolio assistant or workup for secondary HTN if we can ensure compliance and his BP remains elevated * Assessment & Plan Note - Eri Olvera MD - 12/02/2024 10:55 AM EST Associated Problem(s): Essential hypertension Maintenance: Amlodipine 10, Toprolol 50mg XL ADD [...] pain, palpitations, SOB, syncope, or sudden changes inmental status. - Do not change or discontinue current prescriptions without first consulting health care provider * Addendum Note - Eri Olvera MD - 12/01/2024 11:30 AM ESTAddended by: ERI OLVERA on: 12/02/2024 10:57 AM Modules accepted: Orders documented in this encounter Plan of Treatment Upcoming Encounters Date Type Department Care Team (Late st Contact Info) Description 12/23/2024 11:30 AM EDT Clinical Support [facility] MEDICINE [address] [place] [address] 12/28/2024 9:00 AM EDT Office Visit [facility] ADULT DENTAL [address] [place] [address] Derek Iverson, DMD [address] [place] [address] Scheduled Orders Name Type Priority Associated Diagnoses Orde r Schedule Lipid Panel, Standard Lab Routine Hypertensive urgency Essential hypertension Expected: 12/01/2024 (Approximate), Expires: 12/01/2025 HIV-1/2 Antigen and Antibodies, Fourth Generation, with Reflexes Lab Routine Sexually transmitted infection Expected: 12/01/2024 (Approximate), Expires: 12/01/2025 Hepatitis C Antibody with Reflex to HCV, RNA, Quantitative, Real-Time PCR Lab Routine Sexually transmitted infection Expected: 12/01/2024, Expires: 12/01/2025 RPR (Monitor) with Reflex to??Titer Lab Routine Sexually transmitted infection Expected: 12/01/2024, Expires: 12/01/2025 Chlamydia/N. Gonorrhoeae RNA, TMA, Urogenitial Microbiology Routine Sexually transmitted infection Expected: 12/01/2024 (Approximate), Expires: 12/01/2025 documented as of this encounter Visit Diagnoses Diagnosis Essential hypertension- Primary Unspecified essential hypertension Hypertensive urgency Sexually transmitted infection Anxiety Anxiety state, unspecified Finger infection Unspecified local infection of skin and subcutaneous tissue Dietary counseling Dietary surveillance and counseling Exercise counseling Class 1 obesity with serious comorbidity and body mass index (BMI) of 34.0 to 34.9 in adult, unspecified obesity type Hypertrophic scar Keloid scar documented in this encounter Additional Health Concerns Assessment Noted Time PHQ-9 Depression Total Score: 12 025 2:45 PM EST documented as of this encounter Care Teams Direct Care Staffer Relationship Specialty Start Date End Date Eri Olvera MD [address] [place] [id number] PCP - General Family Medicine 07/13/22 documented as of this encounter
--- OUTSIDE RECORDS SUMMARY | 2024-12-15 12:13 | XMS_ITS ---
Author Organization [facility] Address [address] [place] [phone] Care Team Providers Care Pellet Post Inspector Name Role Phone [facility] Primary Care Provider Jenifer vailable Aixa Monet Unavailable Encounters Encounter Location Date Provider Diagnosis [facility] [address] [place] [phone] 05/06/2024 Aixa Monet Plan Of Treatment No Information Progress Notes * Max VELEZOB:1974 (49 yo M)Acc No.[id number]:05/06/2024 Case Management Patient:?VelezMax Provider:?Aixa Monet :1975???Age:49 Y???Sex:Male Rishabh e:05/06/2024 Address:[address] [place], [place] [id number] Pcp:[facility] Subjective: * Chief Complaints: * ??? * [...] Provider:?Aixa Monet Date:? Generated for Riley farrar/Yamileth/Vincenzo on:?12/15/2024 12:13 PM EDT History and Physical Notes * HPI [...]
--- OUTSIDE RECORDS SUMMARY | 2024-12-15 12:13 | XMS_ITS | Encounter Summary ---
Author Organization [facility] [facility] Address [address] [facility] 7t [place] [address] Care Team Providers Care Parking Assistant Name Role Phone Hanny Soto MD Primary Care Provider [phone] Reason for Visit * Reason Onset Date Comments Chart prep 11/30/2024 Encounter Details Date Type Department Care Team ([facility] st Contact Info) Description 11/30/2024 Telephone [facility] MEDICINE [address] [place], [place] [phone] Hanny Soto MD [address] [place], [place] [phone] Chart prep Social History Tobacco Use Types Packs/Day Years [...] encounter Miscellaneous Notes * Telephone Encounter - Mirtha Dean MA - 11/30/2024 10:45 AM EST Chart Prep Labs: done Images: done Vaccines due: yes Referrals: N/A Screenings: colonoscopy Overdue care gaps: Up to date documented in this encounter Plan of Treatment Upcoming Encounters Date Type Department Care Team (Late st Contact Info) Description 12/23/2024 11:30 AM EDT Clinical Support [facility] MEDICINE [address] [place] [address] 12/28/2024 9:00 AM EDT Office Visit [facility] ADULT DENTAL [address] [place] [address] Derek Iverson, DMD [address] [place] [address] documented as of this encounter Visit Diagnoses Not on filedocumented in this encounter Additional Health Concerns Assessment Noted Time PHQ-9 Depression Total Score: 12 025 2:45 PM EST documented as of this encounter Care Teams Parking Assistant Relationship Specialty Start Date End Date Hanny Soto MD [address] [place] [address] PCP - General Family Medicine 07/13/22 documented as of this encounter
[2024-12-15 12:22] LABS: Cholesterol 166 mg/dL (<200); HDL Cholesterol 38 mg/dL (>40); LDL Cholesterol Calculated 107 mg/dL (<100); Triglycerides 106 mg/dL (<150)
[2024-12-15 12:27] LABS: HIV AB/AG Nonreactive (Nonreactive); HIV Num 1 0.07 S/CO (0.00-0.99); ~HepC Num1 0.14 S/CO (0.00-0.79); ~Hepatitis C Antibody Nonreactive (Nonreactive)
[2024-12-15 14:40] LABS: CT PCR NOT DETECTED (Not Detect.); NG PCR NOT DETECTED (Not Detect.)
[2024-12-16 11:47] LABS: RPR Rapid Plasma Reagin NON-REACTIVE (NON-REACTIVE)
== END 2024-12-15 10:20 | disposition home or self-care (01) ==
LOC: HO.HHCL 10:19
PROVIDERS: Visit Provider General Practice
DX: A64 Unspecified sexually transmitted disease (principal); I16.0 Hypertensive urgency
CPT/HCPCS: 80061; 86592; 86803; 87389; 87491; 87591

== ENCOUNTER 2025-02-22 07:34 | Outpatient (REF) | payer MEDICAID, SELFPAY ==
--- NOTE | ~2025-02-22 | US_ITS ---
CLINICAL HISTORY: hypertensive urgency US Renal with Doppler Comparison: None Findings: Right kidney normal size and echotexture, 11.1 cm length. 5 mm cyst noted. No hydronephrosis. Normal color Doppler. Resistive index 0.7 Left kidney normal size and echotexture, 10.4 cm length. No hydronephrosis. Normal color Doppler. Resistive index 0.65 IMPRESSION: No sonographic evidence of renal artery stenosis. Evaluation somewhat limited by body habitus. This document has been electronically signed by: Hao Hill MD on 02/22/2025 09:47:27
--- OUTSIDE RECORDS SUMMARY | 2025-02-22 07:36 | XMS_ITS | Encounter Summary ---
Author Organization [employer] Address [address] [place] [address] 7t [place] [address] Care Team Providers Care Dialysis Patient Care Technician Name Role Phone Hanny Soto MD Primary Care Provider [phone] Reason for Referral * Imaging (Routine) - Authorized Specialty Diagnoses / Procedures Referred By Contac t Referred To Contact Radiology Diagnoses Hypertensive urgency Procedures US RENAL BI Hanny Soto MD [address] [place] [address] Phone: tel: fax: [address] Phone: tel: fax: Referral ID Status Reason Start Date Expiration Date V isits Requested Visits Authorized [id number] Authorized 12/22/2024 12/22/2025 1 1 Encounter Details Date Type Department Care Team (Late st Contact Info) Description 12/22/2024 Orders Only [facility] MEDICINE [address] [place], [place] [phone] Hanny Soto MD [address] [place], [place] [phone] Hypertensive urgency (Primary Dx) Social History Tobacco [...] Care Team (Late st Contact Info) Description 03/19/2025 11:00 AM EDT Office Visit [facility] MEDICINE [address] [place] [address] Hanny Soto MD [address] [place] [address] Scheduled Orders Name Type Priority Associated Diagnoses Orde r Schedule US RENAL BI Imaging Routine Hypertensive urgency Expected: 12/22/2024, Expires: 12/22/2025 documented as of this encounter Visit Diagnoses Diagnosis Hypertensive urgency- Primary documented in this encounter Additional Health Concerns Assessment Noted Time PHQ-9 Depression Total Score: 12 025 2:45 PM EST documented as of this encounter Care Teams Dialysis Patient Care Technician Relationship Specialty Start Date End Date Hanny Soto MD [address] [place] [id number] PCP - General Family Medicine 07/13/22 documented as of this encounter
--- OUTSIDE RECORDS SUMMARY | 2025-02-22 07:36 | XMS_ITS | Encounter Summary ---
Author Organization [employer] Address [address] [facility] 7t [place] [address] Care Team Providers Care Lace Paper Machine Operator Name Role Phone Hanny Soto MD Primary Care Provider [phone] Reason for Visit * Reason Comments Med Refill Encounter Details Date Type Department Care Team ([facility] st Contact Info) Description 12/12/2024 Refill [facility] MEDICINE [address] [place] [address] Jose Castellon MD [address] [place] [address] Hypertensive urgency Social History Tobacco Use Types [...] t he electric, gas, oil or water Perfect Audience threatened to shut off services in your [...] Description 03/19/2025 11:00 AM EDT Office Visit [facility] MEDICINE [address] [place] [address] Hanny Soto MD [address] [place], [place] [phone] documented as of this encounter Visit Diagnoses Diagnosis Hypertensive urgency documented in this encounter Additional Health Concerns Assessment Noted Time PHQ-9 Depression Total Score: 12 025 2:45 PM EST documented as of this encounter Care Teams Lace Paper Machine Operator Relationship Specialty Start Date End Date Hanny Soto MD [address] [place] [address] PCP - General Family Medicine 07/13/22 documented as of this encounter
== END 2025-02-22 07:35 | disposition home or self-care (01) ==
LOC: HO.US 07:34
PROVIDERS: PCP General Practice; Visit Provider General Practice
DX: I16.0 Hypertensive urgency (principal); N18.9 Chronic kidney disease, unspecified
CPT/HCPCS: 76775; 93975

== ENCOUNTER → 2025-02-22 07:50 | Outpatient (BNV) | payer MEDICAID, SELFPAY | PROVIDERS: PCP General Practice; Visit Provider Radiology Vascular & Interventional Radiology | DX: I16.0 Hypertensive urgency (principal) | CPT/HCPCS: 76775; 93975 ==

== ENCOUNTER 2025-04-05 12:22 | Outpatient (AMB) | payer MEDICAID, SELFPAY ==
--- NOTE | 2025-04-05 12:50 | MHC.OFFVIS ---
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 Last seen about 2 years ago. History of hypertension and stated coronary disease. Per patient, history of heart attack about 10 years ago and unknown coronary findings. Otherwise, he is overweight and has got poorly controlled hypertension. Within limits of his activity, no clear-cut symptoms like angina or shortness of breath. Currently meds include amlodipine, metoprolol, olmesartan. [facility] Medical History Myocardial infarction HTN (hypertension) Surgical History H/O heart artery stent Family History (Updated 01/29/23 @ 13:03 by Aminata Calabrese) Mother No problems noted. Father HTN (hypertension) Social History (Updated 04/05/25 @ 12:58 by Jennifer Grove CMA) Unable to assess alcohol history related to: Unable to respond Alcohol intake: never Patient Tobacco Use Status: Former Tobacco user Review of Systems Const Denies chills, Denies fatigue, Denies fever(s), Denies frequent falls, Denies weakness, Denies weight gain and Denies weight loss ENT Denies dizziness Card Denies chest pain, Denies leg edema, Denies lightheadedness, Denies palpitations, Denies dyspnea, Denies dyspnea on exertion and Denies orthopnea Resp Denies cough, Denies dyspnea and Denies dyspnea on exertion GI Denies bloating and Denies change in bowel habits Musc Denies muscle weakness, Denies numbness and Denies tingling Neuro Denies dizziness, Denies frequent falls, Denies numbness, Denies tingling and Denies weakness Endo Denies fatigue and Denies palpitations Physical Exam Vital Signs: Last Vital Signs Pulse 61 04/05/25 12:52 BP 160/90 H 04/05/25 12:52 BMI result Body Mass Index 38.0 Const General: comfortable and no acute distress Orientation/consciousness: patient oriented x3 HEENT Other: Unremarkable Head: Yes normal to inspection Neck Neck: Yes normal visual inspection Chest Chest palpation & inspection: normal inspection of the chest Resp Auscultation: clear to auscultation bilaterally Cardio Palpation: normal PMI Heart sounds: S1 normal heart sound present, S2 normal heart sound present, no gallops, Murmur heart sound present systolic II/ and at the right sternal border and no rubs GI Palpation (GI): Soft to palpation Back/Spine/Pelvis Other: unremarkable Skin General skin exam: no rashes or lesions noted Neuro General: patient oriented x3 Extrem General: Yes normal to inspection Psych Mental Status: mental status grossly normal Office Procedures EKG Details: EKG with underlying sinus rhythm at 61/Min; voltage criteria for LVH; inferior and lateral ST-T changes most likely from hypertension; [place] [address]-[id number], Complete Assessment & Plan Assessment & Plan (1) HTN (hypertension): Code(s): I10 - Essential (primary) hypertension Category: Medical Plan: Currently on a combination of metoprolol, amlodipine, olmesartan. He has CKD and the last creatinine was 1.5 which is around his baseline. We will stop the metoprolol and start him on carvedilol which has a better blood pressure efficacy. Continue amlodipine. Olmesartan dose possibly can be adjusted but we will need to be done in consultation with Nephrology. Also check sleep study. (2) CAD (coronary artery disease): Code(s): I25.10 - Atherosclerotic heart disease of [place] coronary artery without angina pectoris Category: Medical Plan: Patient describes history of prior PCI more than 10 years ago. Myocardial perfusion imaging study from [facility] in 2020 shows normal perfusion. We will get an echocardiogram for cardiac function assessment including any LVH, diastolic dysfunction. He is on aspirin, beta-blockers and statins. Lipids can be followed up with his own PCP. (3) Chronic kidney disease (CKD): Code(s): N18.9 - Chronic kidney disease, unspecified Category: Medical Plan: Creatinine is 1.45. About his usual baseline. Ideally, should seeing Nephrology as well. If he is compliant, can refer in the future. Repeat lab has been ordered by PCP. Advised him to do it. Plan Discussion Notes I discussed with the patient the importance of managing his hypertension and the potential impact of untreated sleep apnea on his cardiovascular health. We reviewed the need for a heart ultrasound and a home sleep study to gather more information for his treatment plan. The patient was informed about the follow-up appointment in six weeks to discuss the results and any necessary adjustments to his care. Patient was informed and verbally consented to the use of an ambient scribe for clinic note documentation during this visit. Orders: Orders CA echo transthoracic complete Today I10 - Essential (primary) hypertension, I25.10 - Atherosclerotic heart disease of [place] coronary artery without angina pectoris RT home sleep study Today G47.33 - Obstructive sleep apnea (adult) (pediatric), I10 - Essential (primary) hypertension Medications: New carvedilol (Coreg) must administer with a meal/food 25 mg PO BID 180 tabs 3RF 90 days Discontinued metoprolol succinate ER Discontinued Reason: Doctor's Order 50 mg PO DAILY 30 tabs 0RF Patient Instructions: - Continue taking your blood pressure medications as prescribed. - Complete the blood tests, heart ultrasound, and home sleep study as scheduled. - Follow up in six weeks for a review of your test results and treatment plan. Coding Level of Care Code Est Pt Level 4 (56519) Complex EM visit Add On G2211 Diagnoses HTN (hypertension) I10 CAD (coronary artery disease) I25.10 Chronic kidney disease (CKD) N18.9 CPT Codes EKG - CPT: 85624-[id number], Complete ([id number])
[2025-04-05 12:52] VITALS: BP 160/90; PULSE 61; BMI 38.0
--- OUTSIDE RECORDS SUMMARY | 2025-04-05 12:53 | XMS_ITS | Encounter Summary ---
Author Organization [employer] Address [address] [place] [address] [address] [place] [address] Care Team Providers Care Large Animal Husbandry Technician Name Role Phone Hanny Soto MD Primary Care Provider [phone] Reason for Visit * Reason Onset Date Comments FYI 03/15/2025 Encounter Details Date Type Department Care Team ([facility] st Contact Info) Description 03/15/2025 Telephone [facility] MEDICINE [address], [place] [phone] Hanny Soto MD [address] [place], [place] [phone] FYI Social History Tobacco Use Types Packs/Day Years [...] the past 12 months, has t he [employer], gas, oil or water [employer] threatened to shut off services in your [...] encounter Miscellaneous Notes * Telephone Encounter - Becca Cantu RN - 03/15/2025 11:25 AM EDT Tc placed to Dr. Annalisa Santos from [facility] [phone] Annalisa Santos informed RNthat the patient has applied for Disability for his Left knee pain from a previous surgery from 12/2021 and patient currently using a cane for stability. Dr. Annalisa Santos reported that if possible duringthe patient upcoming visit on 03/19 can his PCP examine his knee and document finding if possible. RN informed Dr. Annalisa Santos an message will be sent to his PCP. Dr. Annalisa Santos verbalized understanding.PT to F/U PRN. * Telephone Encounter - Nancy Rodriguez - 03/15/2025 11:07 AM EDT Tc from Annalisa (Civil Manager)detailed documentation and a small physical with all his needs, in particular about his left knee.Please, also ask the patient if he uses his cane on a daily basis. All of this for office visit on 03/19/25 Contact Annalisa at [phone] documented in this encounter Plan of Treatment Upcoming Encounters Date Type Department Care Team (Late st Contact Info) Description 06/21/2025 3:45 PM EDT Office Visit [facility] MEDICINE [address] [place] [address] Hanny Soto MD [address] [place] [address] documented as of this encounter Visit Diagnoses Not on filedocumented in this encounter Additional Health Concerns Assessment Noted Time PHQ-9 Depression Total Score: 12 10/20/ 025 2:45 PM EST documented as of this encounter Care Teams Large Animal Husbandry Technician Relationship Specialty Start Date End Date Hanny Soto MD [address] [place] [address] PCP - General Family Medicine 07/13/22 documented as of this encounter
== END 2025-04-05 13:17 | disposition home or self-care (01) ==
LOC: HO.HCS 12:23
PROVIDERS: PCP General Practice; Visit Provider Internal Medicine
DX: I12.9 Hypertensive chronic kidney disease with stage 1 through stage 4 chronic kidney disease, or unspecified chronic kidney disease (principal); I25.10 Atherosclerotic heart disease of native coronary artery without angina pectoris; N18.9 Chronic kidney disease, unspecified
CPT/HCPCS: 93010; 99214

== ENCOUNTER → 2025-04-05 12:22 | Outpatient (BNVA) | payer MEDICAID, SELFPAY | PROVIDERS: PCP General Practice; Visit Provider Internal Medicine | DX: I10 Essential (primary) hypertension (principal); I25.10 Atherosclerotic heart disease of native coronary artery without angina pectoris; N18.9 Chronic kidney disease, unspecified | CPT/HCPCS: 93005; 99212 ==

== ENCOUNTER → 2025-05-18 12:12 | Outpatient (REF) | payer MEDICAID, SELFPAY ==
--- NOTE | 2025-05-18 12:23 | CA_ITS ---
Transthoracic Echocardiogram Patient (Last, First, Middle): Max Luis Omar Gender: Male Date of : 1975 Age: 50 Procedure Date: 05/18/2025 Procedure Type: Transthoracic Echocardiogram Location: OP Height: 180.34 cm Weight: 111.13 kg BSA: 2.30 m2 Heart Rate: bpm BP: 185 / 100 mmHg Environmental Services Coordinator: TEE/MAI Referring MD: Gerry Royal MD Symptoms: I25.10 - Atherosclerotic heart disease of [place] coronary artery without... Study Quality: Adequate ECG Rhythm: Sinus Conclusions: - The left ventricular systolic function is normal. The calculated ejection fraction is 61% by biplane method. - No obvious valvular pathology seen on this study. Findings Left Ventricle Normal left ventricular cavity size. The left ventricular systolic function is normal. The calculated ejection fraction is 61% by biplane method. There is no evidence of regional wall motion abnormalities. Diastolic function is normal for age. Possibly some degree of left ventricular hypertrophy, but measurement does not appear accurate. Right Ventricle Normal right ventricular cavity size and systolic function. Atria Both atria are normal in size. Aortic Valve There is a normal trileaflet aortic valve. There is no aortic valve stenosis. There is no aortic valve regurgitation. Mitral Valve The mitral valve appears normal. There is no mitral valve regurgitation. There is no mitral valve stenosis. Pulmonic Valve The pulmonic valve is likely normal. Tricuspid Valve There is trace tricuspid valve regurgitation. There is no evidence of pulmonary hypertension. Great Vessels The asc aorta and aortic arch are normal in size. Venous The inferior vena cava is normal in size and collapses greater than 50% with inspiration. Pericardium/Pleural There is no evidence of pericardial effusion. Prior Study Comparison No prior study available for comparison. Recommendations, Care & Conclusions No obvious valvular pathology seen on this study. Measurements 2D Linear Measurements IVSd: 1.54 0.6-0.9/0.6-1.0 cm LVIDd: 5.09 3.9-5.3/4.2-5.9 cm LVIDd Index: 2.21 2.4-3.2/2.2-3.1 cm/m2 LVIDs: 2.99 2.0-3.6 cm LVPWd: 1.52 0.7-1.1 cm LA Diam: 3.70 2.7-3.8/3.0-4.0 cm LAIDs Index: 1.61 1.5-2.3 cm/m2 LV Mass: 425.85 67-162/88-224 g LV Mass Index: 185.15 43-95/49-115 g/m2 LVOT Diam: 2.10 3.0+(-)1.3 cm 2D Systolic Function EF 4C: 66.40 >55% EF 2C: 54.90 >55% EF BiP: 61.10 >55% Mitral Valve MV Pk E: 0.80 MV PK A: 0.87 MV Decel Time: 262.00 E/A: 0.90 E'Lateral: 7.18 E'Medial: 6.64 E/E' Med: 12.10 E/E' Lat: 11.20 PHT: 77.00 MVA PHT: 2.86 Decel Moore: 3.06 Aortic Valve AoV Pk Marlo: 1.89 AoV Mn Marlo: 1.25 AoV VTI: 0.34 AoV Pk Grad: 14.00 Aov Mn Grad: 7.00 CAROLINE Cont.VTI: 2.45 LVOT LVOT Pk Marlo: 1.22 LVOT Mn Marlo: 0.82 LVOT VTI: 0.24 LVOT Pk Grad: 6.00 LVOT Mn Grad: 3.00 LVOT Diam: 2.10 LVOT Area: 3.46 Diastolic Function MV Pk E: 0.80 MV Pk A: 0.87 E/A: 0.90 E'Medial: 6.64 E/E' Med: 12.10 E' Laterial: 7.18 E/E' Lat: 11.20 Right Ventricle TAPSE (mm): 24.20 TVS' Marlo: 15.00 Tricuspid Valve TR Pk Marlo: 2.38 TR Pk Grad: 23.00 RA Press: 3.00 RVSP: 26.00 Great Vessels Aorta Sinus of Valsalva: 3.40 2.0-3.5 cm Ao Asc: 3.20 2.1-3.4 cm Ao Arch: 3.10 Pulmonary Valve PV Pk Marlo: 1.07 Peak PV Grad: 5.00 Updated in Other Vendor System with Status of Final Gerry Royal MD electronically signed on 05/19/2025 1:54:09 PM with status of Final
--- OUTSIDE RECORDS SUMMARY | 2025-05-18 13:03 | XMS_ITS | Encounter Summary ---
Author Organization [employer] Address [address] [place] [address] [address] [place] [address] Care Team Providers Care Host Coordinator Name Role Phone Hanny Soto MD Primary Care Provider [phone] Reason for Visit * Reason Onset Date Comments FYI 03/15/2025 Encounter Details Date Type Department Care Team ([facility] st Contact Info) Description 03/15/[address] [facility] MEDICINE [address] [place], [place] [phone] Hanny Soto MD [address] [place], [place] [phone] FYI Social History Tobacco Use Types Packs/Day [...] the past 12 months, has t he [employer], gas, oil or water [employer] threatened to shut off services in your [...] Tc placed to Dr. Annalisa Santos from [facility] [phone] Annalisa Santos informed [...] 03/15/2025 11:07 AM EDT Tc from Annalisa (Supervisor Paper Machine)detailed documentation and a small physical with all his needs, in particular about his left knee.Please, also ask the patient if he uses his cane on a daily basis. All of this for office visit on 03/19/25 Contact Annalisa at [phone] documented in this encounter Plan of Treatment Upcoming Encounters Date Type Department Care Team (Late st Contact Info) Description 06/21/2025 3:45 PM EDT Office Visit [facility] MEDICINE [address] [place] [address] Hanny Soto MD [address] [place] [address] documented as of this encounter Visit Diagnoses Not on filedocumented in this encounter Additional Health Concerns Assessment Noted Time PHQ-9 Depression Total Score: 12 10/20/ 025 2:45 PM EST documented as of this encounter Care Teams Host Coordinator Relationship Specialty Start Date End Date Hanny Soto MD [address] [place] [address] PCP - General Family Medicine 07/13/22 documented as of this encounter
== END ==
LOC: HO.CARD 12:12
PROVIDERS: PCP General Practice; Visit Provider Internal Medicine
DX: I25.10 Atherosclerotic heart disease of native coronary artery without angina pectoris (principal); I10 Essential (primary) hypertension
CPT/HCPCS: 93306

== ENCOUNTER → 2025-05-18 12:23 | Outpatient (BNV) | payer MEDICAID, SELFPAY | PROVIDERS: PCP General Practice; Visit Provider Internal Medicine | DX: I42.2 Other hypertrophic cardiomyopathy (principal); I25.10 Atherosclerotic heart disease of native coronary artery without angina pectoris | CPT/HCPCS: 93306 ==